=== PATIENT | female | born 1995 | race Hispanic/Latino ===

== ENCOUNTER 2019-12-26 00:41 | Emergency (ER) | payer SELFPAY ==
[2019-12-26 00:45] VITALS: BP 115/61; PULSE 74; RESP 18; TEMP 36.4; O2SAT 100
[2019-12-26 02:04] LABS: Alanine Aminotransferase 9 U/L (4-35); Albumin Level 4.3 g/dL (3.5-5.1); Alkaline Phosphatase 59 U/L (38-126); Aspartate Amino Transferase 20 U/L (14-36); Bilirubin,Total 0.3 mg/dL (0.2-1.3); Blood Urea Nitrogen 12 mg/dL (7-17); Calcium 9.1 mg/dL (8.4-10.2); Carbon Dioxide 23 mmol/L (22-30); Chloride 103 mmol/L (98-107); Estimated CRCL calculation 89 ml/min; Estimated Glomerular Filt Rate > 60; Glucose 97 mg/dL (65-105); Lipase 83 U/L (23-300); Potassium 3.8 mmol/L (3.4-5.0); Sodium 139 mmol/L (137-145)
[2019-12-26 02:07] LABS: Basophils Percent Auto 0.5 % (0.2-1.2); Eosinophils Absolute Auto 0.1 K/mm3 (0-0.3); Eosinophils Percent Auto 1.4 % (0-4.4); Hematocrit 31.9 % (37.0-47.0); Immature Granulocyte Absolute 0.01 K/mm3 (0.00-0.031); Immature Granulocyte Percent A 0.1 % (0-0.5); Lymphocytes Absolute Auto 3.82 K/mm3 (0.9-3.2); Lymphocytes Percent Auto 47.9 % (18.3-44.2); Mean Corpuscular HGB Conc 31.3 g/dl (32-36); Mean Corpuscular Volume 83.1 fl (80-100); Mean Platelet Volume 9.8 fl (7.4-10.4); Monocytes Absolute Auto 0.7 K/mm3 (0.1-0.6); Monocytes Percent Auto 8.1 % (2.6-8.5); Neutrophils Absolute Auto 3.4 K/mm3 (1.3-6.7); Platelet Count Result 319 k/mm3 (150-375); Red Blood Count 3.84 M/mm3 (4.2-5.4); Red Cell Distribution Width 14.2 % (11.5-14.5)
[2019-12-26 02:12] LABS: Add Urine Microscopic? YES; Appearance Urine Clear (Clear); Bilirubin Urine Negative (Negative); Blood Urine Negative (Negative); Color Urine Straw (Yellow); Glucose Urine UA Negative (Negative); Ketones Urine Negative (Negative); Leukocyte Esterase Ur 2+ LEU/UL (Negative); Mucus Urine Rare /lpf; Nitrate Urine Negative (Negative); Protein Urine Negative (Negative); RBC Urine 0-2 /hpf (0-2); Squamous Epithelial Cell Urine Moderate /hpf (Few); Urobilinogen Urine Negative mg/dL (<2.0)
--- NOTE | 2019-12-26 02:17 | ED.ABDPAIN ---
HPI - Abdominal Pain General Chief Complaint: Abdominal Pain Stated Complaint: SHARP RT ABD PAINS, NAUSEATED Time Seen by Provider: 12/26/19 01:50 Source: patient and RN notes reviewed Mode of arrival: ambulatory Limitations: no limitations History of Present Illness HPI narrative: Pt is a 24 y/o female who presents to the ED with c/o severe rt sided ABD pain starting yesterday. She currently rates her pain at 9/10. Pt states that she has tried taking Tylenol for her pain, but denies having any relief from the medication. She reports nausea accompanying her pain, but denies any vomiting, diarrhea, fever, dysuria, or hematuria. MD elicited complaint: abdominal pain Onset (ago): day(s) (1) Location: other (rt side of ABD) Pain scale (0-10): 9 Associated symptoms: nausea Treatments prior to arrival: other (Tylenol) Related Data Allergies Allergy/AdvReac Type Severity Reaction Status Date / Time morphine Allergy Unknown Difficulty Verified 12/26/19 00:43 Breathing Review of Systems Review of Systems: All systems reviewed & are unremarkable except as noted in HPI and below Constitutional: Constitutional: Denies fever(s) Gastrointestinal: Gastrointestinal: Reports abdominal pain (rt sided ABD pain), Denies diarrhea, Reports nausea and Denies vomiting Genitourinary: Genitourinary: Denies hematuria and Denies dysuria [facility] Past Medical History Medical History Patellar tendonitis Surgical History Surgical History No significant past surgical history Social History Social History (Updated 12/26/19 @ 02:23 by Jason Campos) Smoking status: Never smoker Gender identity (if verbalized by the patient): Female Exam Const: General: cooperative, healthy appearing, comfortable, no acute distress, well developed, alert and awake; No confusion Orientation/consciousness: oriented to person, oriented to place, oriented to time, patient oriented x3 and No confusion Limitations: no limitations HENMT: Head: normal to inspection, normocephalic and atraumatic Resp: Effort & Inspection: normal respiratory effort, able to speak in complete sentences, no respiratory distress and not tachypneic Auscultation: clear to auscultation bilaterally, no crackles, no rales, no rhonchi and no wheezes Cardio: Rate: regular rate Rhythm: regular rhythm GI: Inspection: normal to inspection GI Palp: Yes Soft to palpation, Yes Tenderness to palpation present (GI) (RUQ tenderness), No Guarding due to palpation present (GI) and No Rebound tenderness present Auscultation: normal bowel sounds : General: Yes no CVA tenderness Skin: General skin exam: normal color, no rashes or lesions noted, elasticity normal and turgor normal Neuro: General: oriented to person, oriented to place, oriented to time, patient oriented x3, tone normal, moves all extremities, Normal light touch and pain sensation, no meningeal signs, no focal motor deficits, CN's II-XI intact bilaterally and No confusion Cranial nerves: Yes Equal, round and reactive pupils present Speech: No Abnormal speech present Sensory Exam: No Sensory deficit (Neuro) Extrem: General: normal to inspection, full ROM and capillary refill normal Psych: Appearance: grossly normal and well kempt Mental Status: mental status grossly normal Speech and movement: Normal speech and movement present Affect: normal affect Attitude: cooperative Thought process: Normal thought process present Thought content: Yes Normal thought content present Insight: Good insight present (Psych) Judgement: Good judgement present (Psych) Course Vital Signs Vital signs: Vital Signs Temperature 36.4 C L 12/26/19 00:45 Pulse Rate 74 12/26/19 00:45 Respiratory Rate 18 12/26/19 00:45 Blood Pressure 115/61 12/26/19 00:45 Pulse Oximetry 100 12/26/19 00:45 Temperature 36.4 C L 12/26/19 00:45 Pulse R
[2019-12-26] MEDS: PROMETHAZINE HCL 25 MG/ML AMPUL 12.5 MG IV PUSH (02:48)
[2019-12-26 02:49] VITALS: BP 119/85; PULSE 84; RESP 19; TEMP 36.4; O2SAT 100
[2019-12-26] MEDS: KETOROLAC 30 MG/ML VIAL (*BKC) IV PUSH (02:49)
[2019-12-26 03:35] VITALS: BP 122/74; PULSE 84; RESP 18; TEMP 36.8; O2SAT 100
== END 2019-12-26 03:35 | disposition home or self-care (01) ==
PROVIDERS: Emergency Provider Emergency Medicine
DX: R10.11 Right upper quadrant pain (principal)
CPT/HCPCS: 36415; 80053; 81001; 81025; 83690; 85025; 96374; 96375; 99284; J1885; J2550

== ENCOUNTER 2020-09-22 18:12 | Emergency (ER) | payer MEDICAID, SELFPAY ==
--- NOTE | ~2020-09-22 | US_ITS ---
EXAMINATION: US OB <=14 wk fetus w TV DATE: 09/22/2020 19:33 INDICATION: Vaginal bleeding during first trimester . TECHNIQUE: Real-time pelvic ultrasound utilizing both a transvaginal and transabdominal probe was pe rformed. The interpreting radiologist was not present for the study. COMPARISON: None. FINDINGS: The uterus measures 8.8 x 4.8 x 7.0 cm. There is an intrauterine gestational sac. A yolk sac and fet al pole are identified. The crown rump length measures 4 mm, which correlates with an estimated gesta tional age of 6 weeks and 1 days. heart motion is identified measuring 121 beats per minute (bp m) by M-mode Doppler. The right ovary measures 2.9 x 1.2 x 1.2 cm. The left ovary measures 2.7 x 3.7 x 2.1 cm. 2.5 cm isoec hoic likely corpus luteum cyst in the left ovary. Vascular flow is identified in both ovaries on colo r Doppler. There is no free fluid in the pelvis. IMPRESSION: 1. Single living fetus with heart rate of 121 bpm. 2. Gestational age by ultrasound of 6 weeks 1 day(s) +/- 4 day(s) with ultrasound estimated date of delivery (SYLVIE) of 05/17/2021. Reviewed, dictated and finalized at location . HEAD INSPECTOR IMPRESSION: 1. Single living fetus with heart rate of 121 bpm. 2. Gestational age by ultrasound of 6 weeks 1 day(s) +/- 4 day(s) with ultraso und estimated date of delivery (SYLVIE) of 05/17/2021.
[2020-09-22 18:28] VITALS: BP 116/63; PULSE 78; RESP 15; TEMP 36.6; O2SAT 100
[2020-09-22 18:49] LABS: Basophils Absolute Auto 0.1 K/mm3 (0.0-0.1); Basophils Percent Auto 0.6 % (0.2-1.2); Eosinophils Absolute Auto 0.1 K/mm3 (0-0.3); Eosinophils Percent Auto 1.1 % (0-4.4); Hematocrit 34.9 % (37.0-47.0); Hemoglobin 11.8 g/dL (12.0-15.0); Immature Granulocyte Absolute 0.01 K/mm3 (0.00-0.031); Immature Granulocyte Percent A 0.1 % (0-0.5); Lymphocytes Absolute Auto 3.14 K/mm3 (0.9-3.2); Lymphocytes Percent Auto 37.8 % (18.3-44.2); Mean Corpuscular HGB Conc 33.8 g/dl (32-36); Mean Corpuscular Hemoglobin 29.8 pg (26-34); Mean Corpuscular Volume 88.1 fl (80-100); Mean Platelet Volume 9.3 fl (7.4-10.4); Monocytes Absolute Auto 0.6 K/mm3 (0.1-0.6); Monocytes Percent Auto 7.3 % (2.6-8.5); Neutrophils Absolute Auto 4.4 K/mm3 (1.3-6.7); Neutrophils Percent Auto 53.1 % (45.5-73.1); Platelet Count Result 307 k/mm3 (150-375); Red Blood Count 3.96 M/mm3 (4.2-5.4); Red Cell Distribution Width 13.2 % (11.5-14.5); White Blood Count 8.3 K/mm3 (4.5-10.0)
[2020-09-22 18:53] LABS: Add Urine Microscopic? YES; Appearance Urine Clear (Clear); Bilirubin Urine Negative (Negative); Blood Urine Negative (Negative); Color Urine Yellow (Yellow); Glucose Urine UA Negative (Negative); Ketones Urine Negative (Negative); Leukocyte Esterase Ur Trace LEU/UL (Negative); Mucus Urine Rare /lpf; Nitrate Urine Negative (Negative); Protein Urine 1+ mg/dL (Negative); RBC Urine 0-2 /hpf (0-2); Squamous Epithelial Cell Urine Few /hpf (Few); Urobilinogen Urine Negative mg/dL (<2.0)
--- NOTE | 2020-09-22 19:57 | ED.ABDPAIN ---
HPI - Abdominal Pain General Chief Complaint: Abdominal Pain Stated Complaint: abd pain Time Seen by Provider: 09/22/20 19:57 History of Present Illness HPI narrative: 25 yo female at about 6 weeks gestation present for vaginal bleeding and discharge. She reports that yesterday she had some light spotting. Today she developed what she described as some strange discharge and lower abdominal cramping. No nausea, vomiting diarrhea, dysuria. Related Data Home Medications Medication Instructions Recorded Confirmed No Home Medications 09/22/20 09/22/20 Allergies Allergy/AdvReac Type Severity Reaction Status Date / Time morphine Allergy Unknown Difficulty Verified 12/26/19 00:43 Breathing Review of Systems Review of Systems: All systems reviewed & are unremarkable except as noted in HPI and below Constitutional: Constitutional: Denies chills and Denies fever(s) Cardiovascular: Cardiovascular: Denies chest pain Respiratory: Respiratory: Denies dyspnea Gastrointestinal: Gastrointestinal: Reports abdominal pain, Denies constipation, Denies diarrhea, Denies nausea and Denies vomiting Genitourinary: Genitourinary: Reports abnormal vaginal bleeding, Denies hematuria, Denies dysuria and Reports vaginal discharge Neurologic: Denies dizziness and Denies weakness [facility] Past Medical History Medical History Patellar tendonitis Surgical History Surgical History No significant past surgical history Social History Social History Smoking status: Never smoker Gender identity (if verbalized by the patient): Female Exam Const: General: healthy appearing, no acute distress and alert Orientation/consciousness: patient oriented x3 HENMT: Head: normal to inspection Neck: Neck: normal visual inspection and no lymphadenopathy Chest: Chest palpation & inspection: no tenderness Resp: Effort & Inspection: normal respiratory effort Auscultation: clear to auscultation bilaterally, no rales, no rhonchi and no wheezes Cardio: Jugular venous distension: no JVD Rate: regular rate Rhythm: regular rhythm Heart sounds: no murmurs GI: Inspection: non-distended GI Palp: Yes Soft to palpation and Yes Tenderness to palpation present (GI) (minimal lower abdominal tenderness) : Speculum Exam - Vagina: abnormal vaginal discharge corado and No vaginal bleeding Speculum Exam - Cervix: normal appearance of the cervix Bimanual exam- vagina & uterus: no cervical motion tenderness Skin: General skin exam: normal color Neuro: General: patient oriented x3 and moves all extremities Speech: normal speech Gait exam (Neuro): Normal gait present Extrem: General: no edema Psych: Appearance: well kempt Affect: normal affect Course Vital Signs Vital signs: Vital Signs Temperature 36.6 C 09/22/20 18:28 Pulse Rate 78 09/22/20 18:28 Respiratory Rate 15 09/22/20 18:28 Blood Pressure 116/63 09/22/20 18:28 Pulse Oximetry 100 09/22/20 18:28 Temperature 36.6 C 09/22/20 18:28 Pulse Rate 78 09/22/20 18:28 Respiratory Rate 15 09/22/20 18:28 Blood Pressure 116/63 09/22/20 18:28 Pulse Oximetry 100 09/22/20 18:28 MDM - Abdominal Pain MDM Narrative Medical decision making narrative: Vaginal discharge concerning for infection. Will treat empirically and have OB follow-up on results. Medical Records Attestation: I reviewed the patient's medical records. Lab Data Attestation: I reviewed the patient's lab results. Result diagrams: 09/22/20 18:37 Labs: Lab Results 09/22/20 09/22/20 09/22/20 Range/Units 18:37 18:37 18:37 WBC 8.3 (4.5-10.0) K/mm3 RBC 3.96 L (4.2-5.4) M/mm3 Hgb 11.8 L (12.0-15.0) g/dL Hct 34.9 L (37.0-47.0) % MCV 88.1 (80-100) fl MCH 29.8 (26-34) pg MCHC 3
[2020-09-22] MEDS: metroNIDAZOLE 250 MG TABLET 2000 MG PO (20:43)
[2020-09-22] MEDS: cefTRIAXone 250 MG VIAL IM (20:45)
[2020-09-22] MEDS: AZITHROMYCIN 250 MG TABLET 1000 MG PO (20:45)
[2020-09-22 20:55] VITALS: BP 119/66; PULSE 90; RESP 19; O2SAT 99
== END 2020-09-22 20:55 | disposition home or self-care (01) ==
PROVIDERS: Emergency Provider Emergency Medicine
DX: O20.9 Hemorrhage in early pregnancy, unspecified (principal); Z3A.01 Less than 8 weeks gestation of pregnancy
CPT/HCPCS: 36415; 76801; 76817; 81001; 84702; 85025; 85461; 87070; 87147; 87491; 87591; 87808; 96372; 99284; A9270; J0696

== ENCOUNTER → 2020-10-10 10:21 | Outpatient (CLI) | payer MEDICAID, SELFPAY ==
--- NOTE | ~2020-10-10 | US_ITS ---
EXAMINATION: US OB <= 14 weeks fetus DATE: 10/10/2020 11:37 INDICATION: Gestational dating TECHNIQUE: Real-time transabdominal and transvaginal obstetric ultrasound. FINDINGS: No prior studies for comparison. The uterus measures 11.9 x 6.4 x 7.2 cm. There is an intrauterine gestational sac, with pole id entified. No evidence The crown rump length measures 1.92 cm. The ovaries are within normal limits. R ight ovary measures 2.7 x 1.7 x 1.9 cm. Left ovary measures 4 x 2.2 x 2.1 cm. IMPRESSION: 1. SL IUP with an EGA of 8 weeks, 5 days (EDC by initial ultrasound of 05/17/2021). Appropriate interv al growth. Reviewed, dictated and finalized at location B. Y MEDIA OPERATOR IMPRESSION: 1. SL IUP with an EGA of 8 weeks, 5 days (EDC by initial ultrasound of ). Appropriate interval growth.
== END ==
PROVIDERS: Visit Provider Physician Assistant
DX: Z34.01 Encounter for supervision of normal first pregnancy, first trimester (principal); Z3A.01 Less than 8 weeks gestation of pregnancy
CPT/HCPCS: 76801

== ENCOUNTER 2020-12-29 08:43 | Outpatient (CLI) | payer OTHER, SELFPAY ==
--- NOTE | ~2020-12-29 | US_ITS ---
EXAMINATION: US OB /maternal detail DATE: 12/29/2020 09:35 INDICATION: Routine care. TECHNIQUE: Real-time ultrasound of the pelvis was performed. COMPARISON: Ultrasound 10/10/20, 09/22/2020 FINDINGS: There is a single living fetus in breech presentation. The placenta is fundal, 10.8 cm from the cerv ix. heart rate is 141 beats per minute (bpm). The amniotic fluid index is 9.7 cm, which is norm al. The following biometric data were obtained: Biparietal diameter (BPD): 4.6 cm; head circumference (HC): 17.6 cm; abdominal circumference (AC): 15 .1 cm; femur length (FL): 3.3 cm. These measurements are concordant. Estimated weight is 342 g +/- 51 g, which correlates with 51st percentile when 05/17/21 is used as estimated date of delivery. As single measurements, these parameters are each equal to the following estimated gestational ages: BPD: 20 weeks 0 days. HC: 20 weeks 1 days. AC: 20 weeks 2 days. FL: 20 weeks 1 days. estimated gestational age based solely on measurements from this exam is 20 weeks 1 days +/- 1 weeks 3 days. The cerebral ventricles, cerebellum, cisterna magna, nuchal fold, nose/lip, and visualized portions o f the spine are normal. The heart is normal. The diaphragm, stomach, kidneys, and bladder are normal. There are two umbilical arteries to yield a 3-vessel cord. The cord insertion is normal. IMPRESSION: 1. Single living fetus in breech presentation. 2. Estimated weight is 342 g +/- 51 g, which correlates with 51st percentile when 05/17/21 is u sed as estimated date of delivery. This date was set by ultrasound on 09/22/2020. 3. Normal anatomic survey. Reviewed, dictated and finalized at location A. NING SERVICES COORDINATOR IMPRESSION: 1. Single living fetus in breech presentation. 2. Estimated weight is 342 g +/- 51 g, which correlates with 51st percen tile when 05/17/21 is used as estimated date of delivery. This date was set by alma rosa mg on 09/22/2020. 3. Normal anatomic survey.
== END 2020-12-29 08:44 | disposition home or self-care (01) ==
PROVIDERS: PCP Physician Assistant; Visit Provider Physician Assistant
DX: Z34.92 Encounter for supervision of normal pregnancy, unspecified, second trimester (principal); Z3A.20 20 weeks gestation of pregnancy
CPT/HCPCS: 76805

== ENCOUNTER 2021-01-27 13:31 | Emergency (ER) | payer OTHER, SELFPAY ==
--- NOTE | 2021-01-27 13:44 | ED.URI ---
HPI - URI/Sore Throat General Chief Complaint: Upper Respiratory Infection Stated Complaint: Sore throat Time Seen by Provider: 01/27/21 13:44 Source: patient and RN notes reviewed History of Present Illness HPI Narrative: Patient is a 25-year-old female who presents the urgent care with complaints of sore throat and nasal congestion. Patient states that it started yesterday and she is 6 months . Patient has taken Tylenol for her symptoms. Patient reports of ongoing nausea since , nothing new or worsened. Denies of any vomiting, abdominal pain, fever, chills, nausea. Denies of any known exposure to Covid or strep. No other acute complaints. No acute distress noted. Patient aware of the plan of care. Some parts of this dictation were generated by voice recognition software and may contain typographical and/or grammatical inaccuracies. Related Data Home Medications Medication Instructions Recorded Confirmed vit no.[id number] 1 tablet PO DAILY 01/27/21 01/27/21 [Classic ] Allergies Allergy/AdvReac Type Severity Reaction Status Date / Time morphine Allergy Unknown Difficulty Verified 01/27/21 13:52 Breathing Review of Systems Review of Systems: Narrative: CONSTITUTIONAL: Denies fever, chills, or sweats. EYES: Denies visual changes, redness, or discharge. ENT: Reports of sore throat and nasal congestion CARDIOVASCULAR: Denies chest pain, palpitations, or edema. RESPIRATORY: Denies cough or dyspnea. GASTROINTESTINAL: Denies abdominal pain, nausea, vomiting, or diarrhea. GENITOURINARY: Denies dysuria or hematuria. SKIN: Denies rash or itching. MUSCULOSKELETAL: Denies back pain, joint pain, or myalgia. NEUROLOGIC: Denies headache, numbness, or weakness. All other systems reviewed are negative, except as documented in HPI. [facility] Past Medical History Medical History (Updated 01/27/21 @ 14:10 by MORGAN Aden) Patellar tendonitis Surgical History Surgical History No significant past surgical history Social History Social History Smoking status: Never smoker Gender identity (if verbalized by the patient): Female Comments At the time of my signature, I reviewed and agree with the nursing past medical, surgical, social, and family history. There is no relevant family history pertinent to the patient complaint. Exam Narrative: Exam Narrative: GENERAL: This is a well-nourished, well-developed patient, in no apparent distress. HEAD: normocephalic, atraumatic. EYES: PERRL. Sclera clear/white. Vision is grossly intact. EARS: External ears normal, auditory canals clear and without drainage, TMs normal without perforation. Hearing grossly intact. NOSE: External nose normal with no obvious nasal discharge, nares without redness, clear rhinorrhea. THROAT: Mucous membranes moist, posterior pharynx clear. Mild postnasal drainage NECK: Neck supple, non-tender without lymphadenopathy CARDIOVASCULAR: Regular rate and rhythm without murmurs, gallops, or rubs. RESPIRATORY: Clear to auscultation. Breath sounds equal bilaterally. No wheezes, rales, or rhonchi. SKIN: warm, intact with no suspicious lesions or rash, good texture and turgor. NEURO: awake, alert, and oriented to person, place and time. There were no obvious focal neurologic abnormalities. EXTREMITIES: No clubbing, cyanosis, or edema. Course Vital Signs Vital signs: Vital Signs Temperature 97.2 F L 01/27/21 13:48 Pulse Rate 66 01/27/21 13:48 Respiratory Rate 16 01/27/21 13:48 Blood Pressure 105/66 01/27/21 13:48 Pulse Oximetry 99 01/27/21 13:48 Temperature 97.2 F L 01/27/21 13:48 Pulse Rate 66 01/27/21 13:48 Respiratory Rate 16 01/27/21 13:48 Blood Pressure 105/66 01/27/21 13:48 Pulse Oximetry 99 01/27/21 13:48 Reviewed MDM - URI/Sore Throat MDM Narrat
[2021-01-27 13:48] VITALS: BP 105/66; PULSE 66; RESP 16; TEMP 36.2; O2SAT 99
== END 2021-01-27 14:13 | disposition home or self-care (01) ==
PROVIDERS: Emergency Provider Nurse Practitioner Family
DX: O99.512 Diseases of the respiratory system complicating pregnancy, second trimester (principal); Z3A.00 Weeks of gestation of pregnancy not specified; J02.9 Acute pharyngitis, unspecified
CPT/HCPCS: 87081; 87880; 99213; G0463

== ENCOUNTER 2021-01-28 15:01 | Emergency (ER) | payer OTHER, SELFPAY ==
[2021-01-28 15:03] VITALS: BP 112/62; PULSE 84; RESP 16; TEMP 36.1; O2SAT 100
--- NOTE | 2021-01-28 16:11 | ED.GENADULT ---
HPI - General Adult General Chief complaint: Upper Respiratory Infection Stated complaint: ST Time Seen by Provider: 01/28/21 15:14 Source: RN notes reviewed History of Present Illness HPI narrative: Patient presents to emergency department from home for a sore throat. Patient states that symptoms began 3 days ago. She states a sore throat that is worse with swallowing as well as rhinorrhea she reports a fever of 101 last night for which she took Tylenol but no fever since that time she denies any fevers today denies any chills chest pain cough shortness of breath abdominal pain nausea vomiting diarrhea or any other symptoms. The patient is currently 6 months Related Data Home Medications Medication Instructions Recorded Confirmed vit no.[id number] 1 tablet PO DAILY 01/27/21 01/27/21 [Classic ] Allergies Allergy/AdvReac Type Severity Reaction Status Date / Time morphine Allergy Unknown Difficulty Verified 01/27/21 13:52 Breathing Review of Systems Review of Systems: Narrative: Gen.: Denies fevers or chills Eyes: Denies eye pain or visual change ENT: See HPI Respiratory: Denies shortness of breath or cough CV: Denies chest pain GI: Denies abdominal pain nausea, emesis or diarrhea reports Musculoskeletal: Denies back pain or muscle pain Neuro: Denies numbness, tingling, weakness or focal weakness Skin: Denies rash Except as documented, all other systems reviewed and negative [facility] Past Medical History Medical History (Updated 01/28/21 @ 16:14 by Afshin Corcoran DO) Patellar tendonitis Surgical History Surgical History No significant past surgical history Social History Social History Smoking status: Never smoker Gender identity (if verbalized by the patient): Female Exam Narrative: Exam Narrative: APPEARANCE: No acute distress, nontoxic, resting in bed EYES: EOMI HEENT: Normocephalic, atraumatic, TMs clear bilaterally bilateral turbinates boggy airway patent mild erythema no exudate of posterior pharynx and bilateral tonsils uvula midline no trismus, tolerating own secretions RESPIRATORY: No respiratory distress Clear to auscultation bilaterally with no rhonchi wheezing or rales. CARDIOVASCULAR: Regular rate and rhythm without murmurs rubs or gallops. ABDOMINAL: Gravid uterus palpated nontender to palpation MUSCULOSKELETAl: Moves all extremities. No clubbing, cyanosis or edema. NEURO: Awake and alert. Following commands, speech normal, no focal deficits SKIN:: Warm, dry. No rashes lesions or abrasions PSYCHIATRIC: Normal affect/mood, Course Course Emergency Course: Patient with a rapid strep to the ED that was negative she did have a rapid Covid test done urgent care yesterday but that was only her secondary symptoms at this time I will obtain a PCR Covid test with concerns of possible Covid patient is otherwise stable no fevers today differential is Covid versus other viral infection no need for chest x-ray as patient has no cough or shortness of breath Discussed with patient results of workup and diagnosis. Discussed need for follow-up with primary care, proper use of medication, and reasons to return to the emergency department. Patient understands and agrees to current treatment plan Vital Signs Vital signs: Vital Signs Temperature 97 F L 01/28/21 15:03 Pulse Rate 84 01/28/21 15:03 Respiratory Rate 16 01/28/21 15:03 Blood Pressure 112/62 01/28/21 15:03 Pulse Oximetry 100 01/28/21 15:03 Temperature 97 F L 01/28/21 15:03 Pulse Rate 84 01/28/21 15:03 Respiratory Rate 16 01/28/21 15:03 Blood Pressure 112/62 01/28/21 15:03 Pulse Oximetry 100 01/28/21 15:03 Medical Decision Making Vital Signs Vital Signs: Vital Signs Temperature 97 F L 01/28/21 15:03 Pulse Rate 84 01/28/21 15:03 Respiratory
[2021-01-28 23:58] LABS: SARS-CoV-2 RNA PCR Negative
== END 2021-01-28 16:35 | disposition home or self-care (01) ==
PROVIDERS: Emergency Provider Emergency Medicine
DX: O99.512 Diseases of the respiratory system complicating pregnancy, second trimester (principal); Z20.822 Contact with and (suspected) exposure to COVID-19; J06.9 Acute upper respiratory infection, unspecified; Z3A.00 Weeks of gestation of pregnancy not specified
CPT/HCPCS: 87081; 87880; 99283; C9803; U0003; U0005

== ENCOUNTER 2021-03-22 23:18 | Observation (INO) | payer OTHER, SELFPAY ==
[2021-03-22 23:46] VITALS: BP 120/78; PULSE 69
[2021-03-23 00:05] LABS: Add Urine Microscopic? YES; Appearance Urine Cloudy (Clear); Bacteria Urine Trace /hpf; Bilirubin Urine Negative (Negative); Blood Urine Negative (Negative); Color Urine Yellow (Yellow); Glucose Urine UA Negative (Negative); Ketones Urine Negative (Negative); Leukocyte Esterase Ur 1+ LEU/UL (Negative); Mucus Urine Rare /lpf; Nitrate Urine Negative (Negative); Protein Urine Negative (Negative); Squamous Epithelial Cell Urine Many /hpf (Few); Urobilinogen Urine Negative mg/dL (<2.0)
[2021-03-23 00:09] VITALS: BMI 22.5
--- NOTE | 2021-03-23 00:10 | OBADM ---
This patient, Tracey Cifuentes, admitted to the OB room OB Post 117 for observation. Patient/family oriented to hospital policies and general routines including ID bracelet, bed and alarms, visiting hours, pain management, procedures, bathroom and other care routines, personal items, smoking policy, room service/diet, and visiting hours. Patient/Family are encouraged to report perceived risks to care and to ask questions if they do not understand what they are told or what they should do.
--- NOTE | 2021-03-25 18:10 | PM.OBTRLD ---
OB - Triage/Final Diagnosis Visit Information Comments/Additional reasons for admission: I have assessed the risk for this patient, Tracey Cifuentes, and determined that she would benefit from observation care. Evaluation Laboratory results: Laboratory Tests 03/22/21 23:52 Urine Color Yellow Urine Appearance Cloudy H Urine pH 7.0 Ur Specific [place] 1.010 Urine Protein Negative Urine Glucose (UA) Negative Urine Ketones Negative Ur Blood (Man) Negative Urine Nitrate Negative Urine Bilirubin Negative Urine Urobilinogen Negative Leukocyte Esterase Rfl 1+ H Urine RBC 3-5 H Urine WBC 4-6 H Ur Squamous Epith Cells Many H Urine Bacteria Trace Urine Mucus Rare Final Diagnosis (1) False labor: Code(s): O47.9 - False labor, unspecified Status: Acute
== END 2021-03-23 00:51 | disposition home or self-care (01) ==
PROVIDERS: Admitting Provider Obstetrics & Gynecology; PCP Physician Assistant; Visit Provider Obstetrics & Gynecology
DX: O47.03 False labor before 37 completed weeks of gestation, third trimester (principal); Z3A.32 32 weeks gestation of pregnancy
CPT/HCPCS: 81001; G0378; G0379

== ENCOUNTER 2021-04-23 12:16 | Outpatient (CLI) | payer OTHER, SELFPAY ==
[2021-04-23] VITALS (8 sets, daily range): BP systolic 124–135; BP diastolic 77–91; PULSE 68–76
--- NOTE | ~2021-04-23 | US_ITS ---
EXAMINATION: US OB BPP wo non-stress DATE: 04/23/2021 14:42 CDT INDICATION: Hypertension TECHNIQUE: Real-time transabdominal obstetric ultrasound. FINDINGS: Comparison ultrasound dated 12/29/2020 There is a single living fetus in vertex presentation. The placenta is posterior without placenta pr evia. cardiac activity and movement is noted with a heart rate of 157 beats per minute. Biophysical profile: breathin of 2 movement: 2 of 2 tone: 2 of 2 Amniotic flud pocket: 2 of 2 Total score: 8 of 8 IMPRESSION: 1. Single living intrauterine in vertex presentation. 2: Total biophysical profile score of 8/8. Reviewed, dictated and finalized at location A.
[2021-04-23 12:56] LABS: Basophils Percent Auto 0.5 % (0.2-1.2); Eosinophils Absolute Auto 0.1 K/mm3 (0-0.3); Eosinophils Percent Auto 0.6 % (0-4.4); Hematocrit 33.1 % (37.0-47.0); Hemoglobin 10.9 g/dL (12.0-15.0); Immature Granulocyte Absolute 0.04 K/mm3 (0.00-0.031); Immature Granulocyte Percent A 0.5 % (0-0.5); Lymphocytes Absolute Auto 2.87 K/mm3 (0.9-3.2); Lymphocytes Percent Auto 35.5 % (18.3-44.2); Mean Corpuscular HGB Conc 32.9 g/dl (32-36); Mean Corpuscular Hemoglobin 29.5 pg (26-34); Mean Corpuscular Volume 89.7 fl (80-100); Mean Platelet Volume 11.1 fl (7.4-10.4); Monocytes Absolute Auto 0.6 K/mm3 (0.1-0.6); Monocytes Percent Auto 7.4 % (2.6-8.5); Neutrophils Absolute Auto 4.5 K/mm3 (1.3-6.7); Neutrophils Percent Auto 55.5 % (45.5-73.1); Platelet Count Result 197 k/mm3 (150-375); Red Blood Count 3.69 M/mm3 (4.2-5.4); White Blood Count 8.1 K/mm3 (4.5-10.0)
[2021-04-23 13:06] LABS: Add Urine Microscopic? YES; Appearance Urine Cloudy (Clear); Bacteria Urine Trace /hpf; Bilirubin Urine Negative (Negative); Blood Urine Negative (Negative); Color Urine Yellow (Yellow); Glucose Urine UA Negative (Negative); Ketones Urine Negative (Negative); Leukocyte Esterase Ur Trace LEU/UL (NEGATIVE); Mucus Urine Few /lpf; Nitrate Urine Negative (Negative); Protein Urine 3+ mg/dL (Negative); RBC Urine 0-2 /hpf (0-2); Specific Grav Ur 1.025 (1.001-1.035); Squamous Epithelial Cell Urine Many /hpf (Few); Urobilinogen Urine Negative mg/dL (<2.0)
[2021-04-23 13:11] LABS: Alanine Aminotransferase 6 U/L (4-35); Albumin Level 3.1 g/dL (3.5-5.1); Alkaline Phosphatase 245 U/L (38-126); Anion Gap 7 mmol/L (8-16); Aspartate Amino Transferase 24 U/L (14-36); Bilirubin,Total 0.2 mg/dL (0.2-1.3); Blood Urea Nitrogen 10 mg/dL (7-17); Calcium 8.4 mg/dL (8.4-10.2); Carbon Dioxide 19 mmol/L (22-30); Chloride 110 mmol/L (98-107); Estimated Glomerular Filt Rate > 60; Glucose 86 mg/dL (65-105); Potassium 4.2 mmol/L (3.4-5.0); Sodium 136 mmol/L (137-145); Uric Acid 6.7 mg/dL (2.5-7.5)
[2021-04-23 13:50] LABS: Total Protein Urine Random 400 mg/dL; Ur Ttl Prot Creatinine Ratio 1.88 mg/mg (0-0.20)
== END 2021-04-23 14:50 | disposition home or self-care (01) ==
LOC: ANHOBOP 12:22 → ANHOBPP 12:23
PROVIDERS: PCP Physician Assistant; Visit Provider Obstetrics & Gynecology
DX: O13.9 Gestational [pregnancy-induced] hypertension without significant proteinuria, unspecified trimester (principal); Z3A.00 Weeks of gestation of pregnancy not specified
CPT/HCPCS: 36415; 59025; 76819; 80053; 81001; 82570; 84156; 84550; 85025; 87086; 99199

== ENCOUNTER 2021-04-24 13:41 | Outpatient (CLI) | payer OTHER, SELFPAY ==
[2021-04-24 13:54] VITALS: BMI 26.6
[2021-04-24 14:47] LABS: Collection Time Urine 24 HOURS
[2021-04-24 15:42] LABS: Creatinine Urine 65.7 mg/dL; Patient Weight 145 Lbs; Total Protein Urine Random 183 mg/dL
[2021-04-24 16:07] LABS: Creatinine Clearance Urine 88.2 ml/min (75-125); Total Protein Urine 24 Hr 2379 mg/24hr (28-141); Total Volume 24 Hour Urine 1300 ml
== END 2021-04-24 13:42 | disposition home or self-care (01) ==
LOC: ANHOBOP 13:47
PROVIDERS: PCP Physician Assistant; Referring Provider Obstetrics & Gynecology; Visit Provider Obstetrics & Gynecology
DX: Z01.818 Encounter for other preprocedural examination (principal)
CPT/HCPCS: 81050; 82575; 84156

== ENCOUNTER 2021-04-25 20:34 | Inpatient (IN) | payer OTHER, SELFPAY ==
[2021-04-25] VITALS (12 sets, daily range): BP systolic 147–171; BP diastolic 71–129; PULSE 58–70; TEMP 36.2; BMI 26.6
[2021-04-25] MEDS: ACETAMINOPHEN 500 MG TABLET 1000 MG PO (22:23)
[2021-04-25 22:25] LABS: Basophils Percent Auto 0.4 % (0.2-1.2); Eosinophils Percent Auto 0.3 % (0-4.4); Hematocrit 35.4 % (37.0-47.0); Hemoglobin 11.7 g/dL (12.0-15.0); Immature Granulocyte Absolute 0.04 K/mm3 (0.00-0.031); Immature Granulocyte Percent A 0.4 % (0-0.5); Lymphocytes Absolute Auto 3.08 K/mm3 (0.9-3.2); Mean Corpuscular HGB Conc 33.1 g/dl (32-36); Mean Corpuscular Hemoglobin 29.4 pg (26-34); Mean Corpuscular Volume 88.9 fl (80-100); Monocytes Absolute Auto 0.6 K/mm3 (0.1-0.6); Monocytes Percent Auto 6.5 % (2.6-8.5); Neutrophils Absolute Auto 6.1 K/mm3 (1.3-6.7); Neutrophils Percent Auto 61.4 % (45.5-73.1); Platelet Count Result 186 k/mm3 (150-375); Red Blood Count 3.98 M/mm3 (4.2-5.4); Red Cell Distribution Width 14.2 % (11.5-14.5); White Blood Count 9.9 K/mm3 (4.5-10.0)
[2021-04-25 22:35] LABS: Alanine Aminotransferase 89 U/L (4-35); Albumin Level 3.4 g/dL (3.5-5.1); Alkaline Phosphatase 268 U/L (38-126); Anion Gap 6 mmol/L (8-16); Aspartate Amino Transferase 169 U/L (14-36); Bilirubin,Total 0.4 mg/dL (0.2-1.3); Blood Urea Nitrogen 12 mg/dL (7-17); Calcium 9.3 mg/dL (8.4-10.2); Carbon Dioxide 22 mmol/L (22-30); Chloride 107 mmol/L (98-107); Estimated Glomerular Filt Rate > 60; Glucose 81 mg/dL (65-105); Potassium 4.1 mmol/L (3.4-5.0); Sodium 135 mmol/L (137-145); Uric Acid 6.6 mg/dL (2.5-7.5)
[2021-04-25 23:17] LABS: Creatinine Urine 89.9 mg/dL
[2021-04-25 23:19] LABS: Add Urine Microscopic? YES; Appearance Urine Cloudy (Clear); Bacteria Urine Trace /hpf; Bilirubin Urine Negative (Negative); Blood Urine Negative (Negative); Color Urine Yellow (Yellow); Glucose Urine UA Negative (Negative); Ketones Urine Negative (Negative); Leukocyte Esterase Ur Trace LEU/UL (NEGATIVE); Mucus Urine Rare /lpf; Nitrate Urine Negative (Negative); Protein Urine 3+ mg/dL (Negative); RBC Urine 0-2 /hpf (0-2); Specific Grav Ur 1.026 (1.001-1.035); Squamous Epithelial Cell Urine Many /hpf (Few); Urobilinogen Urine Negative mg/dL (<2.0)
--- NOTE | 2021-04-25 23:27 | WPDANESEPPF ---
Anes - Initial Pre Proc Eval Procedure: Operation Date: 04/25/21 23:45 Proposed Procedures p Section - Mirza Alberto MD Date/Time: 04/25/21 23:27 Surgeon: Dolly Pre Op Diagnosis: abd pressure Patient Data Age: 25 Gender: F Height: Weight: Last Vital Signs Pulse 59 L 04/25/21 23:16 BP 149/77 H 04/25/21 23:16 Allergies Allergy/AdvReac Type Severity Reaction Status Date / Time morphine Allergy Unknown Difficulty Verified 01/27/21 13:52 Breathing Home Medications Medication Instructions Recorded Confirmed Type Classic 1 tablet PO DAILY 01/27/21 03/23/21 History Laboratory Tests 04/25/21 04/25/21 04/25/21 22:19 22:19 22:56 WBC 9.9 K/mm3 K/mm3 (4.5-10.0) RBC 3.98 M/mm3 L M/mm3 (4.2-5.4) Hgb 11.7 g/dL L g/dL (12.0-15.0) Hct 35.4 % L % (37.0-47.0) MCV 88.9 fl fl (80-100) MCH 29.4 pg pg (26-34) MCHC 33.1 g/dl g/dl (32-36) RDW 14.2 % % (11.5-14.5) Plt Count 186 k/mm3 k/mm3 (150-375) MPV 11.0 fl H fl (7.4-10.4) Immature Gran % (Auto) 0.4 % % (0-0.5) Neut % (Auto) 61.4 % % (45.5-73.1) Lymph % (Auto) 31.0 % % (18.3-44.2) [place] % (Auto) 6.5 % % (2.6-8.5) Eos % (Auto) 0.3 % % (0-4.4) Baso % (Auto) 0.4 % % (0.2-1.2) Lymph # (Auto) 3.08 K/mm3 K/mm3 (0.9-3.2) [place] # (Auto) 0.6 K/mm3 K/mm3 (0.1-0.6) Eos # (Auto) 0.0 K/mm3 K/mm3 (0-0.3) Baso # (Auto) 0.0 K/mm3 K/mm3 (0.0-0.1) Abs Immat Gran (auto) 0.04 K/mm3 H K/mm3 (0.00-0.031) Absolute Neuts (auto) 6.1 K/mm3 K/mm3 (1.3-6.7) Absolute Nucleated RBC 0.0 K/mm3 K/mm3 (0.0-0.012) Nucleated RBC % 0.0 % % (0.0-0.2) Sodium 135 mmol/L L mmol/L (137-145) Potassium 4.1 mmol/L mmol/L (3.4-5.0) Chloride 107 mmol/L mmol/L (98-107) Carbon Dioxide 22 mmol/L mmol/L (22-30) Anion Gap 6 mmol/L L mmol/L (8-16) BUN 12 mg/dL mg/dL (7-17) Creatinine 0.60 mg/dL L mg/dL (0.7-1.0) Estim Creat Clear Calc Not Reportable Estimated GFR > 60 (59 - ) Glucose 81 mg/dL mg/dL (65-105) Uric Acid 6.6 mg/dL mg/dL (2.5-7.5) Calcium 9.3 mg/dL mg/dL (8.4-10.2) Total Bilirubin 0.4 mg/dL mg/dL (0.2-1.3) AST 169 U/L H U/L (14-36) ALT 89 U/L H U/L (4-35) Alkaline Phosphatase 268 U/L H U/L (38-126) Total Protein 7.0 g/dL g/dL (6.3-8.2) Albumin 3.4 g/dL L g/dL (3.5-5.1) Urine Color Yellow (Yellow) Urine Appearance Cloudy H (Clear) Urine pH 7.0 (5.0-9.0) Ur Specific [place] 1.026 (1.001-1.035) Urine Protein 3+ mg/dL H mg/dL (Negative) Urine Glucose (UA) Negative mg/dL mg/dL (Negative) Urine Ketones Negative mg/dL mg/dL (Negative) Ur Blood (Man) Negative (Negative) Urine Nitrate Negative (Negative) Urine Bilirubin Negative (Negative) Urine Urobilinogen Negative mg/dL mg/dL (<2.0) Ur Leukocyte Esterase Trace PALLAVI/UL H PALLAVI/UL (NEGATIVE) Urine RBC 0-2 /hpf /hpf (0-2) Urine WBC 7-9 /hpf H /hpf (0-3) Ur Squamous Epith Cells Many /hpf H /hpf (Few) Urine Bacteria Trace /hpf /hpf Urine Mucus Rare /lpf /lpf U Random Total Protein Urine Creatinine Protein/Creat Ratio 2 04/25/21 22:56 WBC RBC Hgb Hct MCV MCH MCHC RDW Plt Count MPV Immature Gran % (Auto) Neut % (Auto) Lymph % (Auto) [place] % (Auto) Eos % (Auto) Baso % (Auto) Lymph # (Auto)
[2021-04-25] MEDS: LACTATED RINGERS 1,000 ML 125 ML IV CONT (23:33)
[2021-04-25] MEDS: MAGNESIUM SULF 4 GM/WATER100ML 4 GM/100 ML BAG IVPB (23:34)
[2021-04-25 23:50] LABS: Total Protein Urine Random > 600 mg/dL
[2021-04-26] VITALS (83 sets, daily range): BP systolic 113–165; BP diastolic 26–112; PULSE 54–219; RESP 13–19; TEMP 36.1–36.8; O2SAT 96–100
[2021-04-26 00:08] LABS: INR 0.8
[2021-04-26 00:09] LABS: Partial Thromboplastin Time 27.6 SECONDS (22.3-36.8)
[2021-04-26] MEDS: ceFAZolin 2 GM/D5W 50 ML 2 GM/50 ML BAG IVPB (00:09)
--- NOTE | 2021-04-26 00:09 | PM.IMHP ---
H&P: HPI History of Present Illness Date/Time: 04/26/21 25-year-old 1 female at 37 weeks presents with right upper quadrant pain nausea and vomiting. Was doing well during this with care with Dr. moon manner no issues until seen earlier this week elevated blood pressure. Labs were obtained at that time which were centrally normal other than a 24hour protein which is markedly elevated today. Presented tonight due to the above right upper quadrant pain with the nausea vomiting. At the end as noted above care has been with Dr. Chamorro and essentially without complication Chief Complaint: Abdominal pain Review of Systems Review of Systems: All systems reviewed & are unremarkable except as noted in HPI and below ( nausea and vomiting as noted above. No other significant complaints) [facility] Past Medical History Medical History (Updated 04/26/21 @ 00:15 by Mirza Alberto MD) Patellar tendonitis Surgical History Surgical History No significant past surgical history Social History Social History Smoking status: Never smoker Gender identity (if verbalized by the patient): Female Meds Home Medications and Allergies Home Medications Medication Instructions Recorded Confirmed Type Classic 1 tablet PO DAILY 01/27/21 04/25/21 History Allergies Allergy/AdvReac Type Severity Reaction Status Date / Time morphine Allergy Unknown Difficulty Verified 01/27/21 13:52 Breathing Vital Signs Vital Signs - 24 hr 04/25/21 20:58 04/25/21 21:16 04/25/21 21:31 Pulse Rate 62 61 63 Blood Pressure 166/92 H 153/73 H 147/71 H 04/25/21 21:46 04/25/21 22:01 04/25/21 22:31 Pulse Rate 58 L 62 63 Blood Pressure 171/97 H 165/85 H 163/77 H 04/25/21 22:46 04/25/21 23:16 04/25/21 23:31 Pulse Rate 66 59 L 65 Blood Pressure 157/88 H 149/77 H 153/129 H 04/25/21 23:33 04/25/21 23:57 04/26/21 00:01 Pulse Rate 68 70 73 Blood Pressure 159/79 H 156/87 H 152/88 H Exam Const: General: cooperative and healthy appearing Resp: Effort & Inspection: normal respiratory effort Auscultation: clear to auscultation bilaterally Cardio: Rate: regular rate Rhythm: regular rhythm GI: Inspection: normal to inspection GI Palp: Yes abdominal tenderness ( right upper quadrant) Auscultation: normal bowel sounds : Bimanual exam- vagina & uterus: enlarged ( heart tone 140. Fundal height 35cm) H&P: Results Labs Labs: Short CBC 04/25/21 Range/Units 22:19 WBC 9.9 (4.5-10.0) K/mm3 Hgb 11.7 L (12.0-15.0) g/dL Hct 35.4 L (37.0-47.0) % Plt Count 186 (150-375) k/mm3 BMP 04/25/21 22:19 Sodium 135 L Potassium 4.1 Chloride 107 Carbon Dioxide 22 BUN 12 Creatinine 0.60 L Glucose 81 Calcium 9.3 Liver Function 04/25/21 Range/Units 22:19 Total Bilirubin 0.4 (0.2-1.3) mg/dL AST 169 H (14-36) U/L ALT 89 H (4-35) U/L Alkaline Phosphatase 268 H (38-126) U/L Albumin 3.4 L (3.5-5.1) g/dL Urine 04/25/21 Range/Units 22:56 Urine Color Yellow (Yellow) Urine Appearance Cloudy H (Clear) Urine pH 7.0 (5.0-9.0) Ur Specific [place] 1.026 (1.001-1.035) Urine Protein 3+ H (Negative) mg/dL Urine Glucose (UA) Negative (Negative) mg/dL Assessment and Plan Assessment and plan (1) 37 weeks gestation of : Code(s): Z3A.37 - 37 weeks gestation of Status: Acute (2) induced hypertension: Code(s): O13.9 - Gestational [-induced] hypertension without significant proteinuria, unspecified trimester Status: Acute (3) HELLP syndrome: Code(s): O14.20 - HELLP syndrome (HELLP), unspecified trimester Status: Acute Additional Plan 1 proceed with delivery. To noninducible cervix and her being remote from delivery
--- NOTE | 2021-04-26 00:16 | WPDHPUPDATE1 ---
History and Physical Update Update Date/Time: 04/26/21 00:16 History and Physical has been reviewed, including an updated exam of the patient. There are NO changes in the patient's condition. Risks, benefits, and alternatives have been discussed and questions answered. Patient agrees to proceed with procedure.
[2021-04-26 00:39] LABS: HIV 1/2 Ab P24 Ag Result Negative (Negative)
--- NOTE | 2021-04-26 00:51 | P.PCNOB_ITS ---
OB - Delivery Note Procedure Procedure: Procedures Operation Date: 04/25/21 23:45 <No data on this case meets the specified criteria> events: Induced HTN (With HELLP syndrome) Intrapartal events: None Induction method: none Route of delivery: Indication for instrumentation: other (Above diagnoses remote from delivery) Specimen: Yes Quantitative Blood Loss (ml): 325 Anesthesia type: Spinal Disposition: floor Narrative: Patient prepped in usual manner for this procedure. Pfannenstiel incision was made which was then carried down to the fascia. This was extended bilaterally the length of the skin incision and then superiorly and inferiorly dissected away from the rectus muscles. Peritoneum was readily entered bladder flap was developed. Uterus was scored and lower segment was dissected. Vertex was delivered section naso-oropharynx the rest of baby was delivered cord clamped cut and placenta was removed manually. Uterus was exteriorized cleared of membranes and clots and approximated using 0 Monocryl in a running interlocking manner with good approximation hemostasis noted. Uterus was turned to the abdomen all subfascial tissue was noted be hemostatic and the fascia was then approximated using 0 Vicryl suture from the left angle to the midline and the right angle midline in a running manner. Subcutaneous tissue was cauterized and approximated using a 0 plain suture. [place] were then used to approximate the skin edges. [place] Baby Weeks of gestation at delivery: 37 Infant gender: Female Weight (pounds): 5 Weight (ounces): 4 presentation: vertex Placenta delivery description: Manual Removal cord vessel description: 3 Vessels score one minute: 8 score five minutes: 9
--- NOTE | 2021-04-26 01:27 | OBADM ---
This patient, Tracey Cifuentes, admitted to the OB room Labor/Delivery/Recovery 120 for observation. Patient/family oriented to hospital policies and general routines including ID bracelet, bed and alarms, visiting hours, pain management, procedures, bathroom and other care routines, personal items, smoking policy, room service/diet, and visiting hours. Patient/Family are encouraged to report perceived risks to care and to ask questions if they do not understand what they are told or what they should do.
[2021-04-26] MEDS: MAGNESIUM SULF 20GM/WATER500ML 500 ML 50 MG IV CONT ×2 (01:50→12:03)
[2021-04-26] MEDS: OXYTOCIN 30 UNITS/NS 500 ML 30 UNITS/500 ML BAG 125 UNITS IV CONT (01:50)
--- NOTE | 2021-04-26 02:27 | LDADM ---
This patient, Tracey Cifuentes, was admitted to Labor/Delivery/Recovery 120 on 04/25/21 at 23:18. Plans for labor, pain management and were discussed with patient. Patient/family oriented to hospital policies and general routines including ID bracelet, bed and alarms, visiting hours, pain management, procedures, bathroom and other care routines, personal items, smoking policy, room service/diet and guest tray routines, security routines, and visiting hours. Patient/Family are encouraged to report perceived risks to care and to ask questions if they do not understand what they are told or what they should do. See OBIX for further documentation.
[2021-04-26] MEDS: ONDANSETRON INJ 4 MG/2 ML VIAL IV PUSH ×2 (03:30→19:54)
[2021-04-26] MEDS: diphenhydrAMINE HCl INJ 50 MG/ML VIAL 12.5 MG IV PUSH (04:21)
--- NOTE | 2021-04-26 04:47 | PC.NURSE ---
This patient, Tracey Cifuentes, was received from Labor and Delivery on 04/26/21 at 0358. Patient/family oriented to unit policies and routines
[2021-04-26 06:52] LABS: Alanine Aminotransferase 145 U/L (4-35); Albumin Level 2.9 g/dL (3.5-5.1); Alkaline Phosphatase 245 U/L (38-126); Anion Gap 9 mmol/L (8-16); Aspartate Amino Transferase 501 U/L (14-36); Bilirubin,Total 1.5 mg/dL (0.2-1.3); Blood Urea Nitrogen 13 mg/dL (7-17); Carbon Dioxide 22 mmol/L (22-30); Chloride 105 mmol/L (98-107); Estimated CRCL calculation 95 ml/min; Estimated Glomerular Filt Rate > 60; Glucose 104 mg/dL (65-105); Potassium 4.4 mmol/L (3.4-5.0); Sodium 136 mmol/L (137-145)
[2021-04-26] MEDS: MULTIVIT/MIN/PREN/FOL AC/IRON TABLET 1 TAB PO (08:53)
[2021-04-26] MEDS: DOCUSATE SODIUM 100 MG CAPSULE PO (08:53)
[2021-04-26] MEDS: POLYSACCHARIDE IRON COMPLEX 150 MG CAPSULE PO (08:53)
[2021-04-26] MEDS: LABETALOL HCL 100 MG TABLET 200 MG PO ×2 (08:53→19:54)
[2021-04-26] MEDS: SIMETHICONE 80 MG TAB.CHEW PO ×2 (09:00→15:55)
[2021-04-26] MEDS: HYDROcodone/acetaminophen (*CRX) 10-325 MG TABLET 1 TAB PO ×2 (09:00→15:56)
--- NOTE | 2021-04-26 10:53 | PM.OBPNVD ---
OB - PN: Subj Subjective Date/time seen: 04/26/21 10:53 No complaints this morning other than mild incisional pain. No right upper quadrant pain and no further nausea and vomiting. Has not been out of bed due to catheter and some dizziness and blurred vision from magnesium. OB - PN: Obj Data Labs CBC & Chem 7: 04/25/21 22:19 04/26/21 05:48 Labs: Laboratory Results - last 24 hr 04/25/21 04/25/21 04/25/21 22:19 22:19 22:19 WBC 9.9 RBC 3.98 L Hgb 11.7 L Hct 35.4 L MCV 88.9 MCH 29.4 MCHC 33.1 RDW 14.2 Plt Count 186 MPV 11.0 H Immature Gran % (Auto) 0.4 Neut % (Auto) 61.4 Lymph % (Auto) 31.0 [place] % (Auto) 6.5 Eos % (Auto) 0.3 Baso % (Auto) 0.4 Lymph # (Auto) 3.08 [place] # (Auto) 0.6 Eos # (Auto) 0.0 Baso # (Auto) 0.0 Abs Immat Gran (auto) 0.04 H Absolute Neuts (auto) 6.1 Absolute Nucleated RBC 0.0 Nucleated RBC % 0.0 PT INR APTT Sodium 135 L Potassium 4.1 Chloride 107 Carbon Dioxide 22 Anion Gap 6 L BUN 12 Creatinine 0.60 L Estim Creat Clear Calc Not Reportable Estimated GFR > 60 Glucose 81 Uric Acid 6.6 Calcium 9.3 Total Bilirubin 0.4 AST 169 H ALT 89 H Alkaline Phosphatase 268 H Total Protein 7.0 Albumin 3.4 L Urine Color Urine Appearance Urine pH Ur Specific [place] Urine Protein Urine Glucose (UA) Urine Ketones Ur Blood (Man) Urine Nitrate Urine Bilirubin Urine Urobilinogen Ur Leukocyte Esterase Urine RBC Urine WBC Ur Squamous Epith Cells Urine Bacteria Urine Mucus U Random Total Protein Urine Creatinine Protein/Creat Ratio 2 HIV 1&2 Ab/P24 Ag 4thGn Negative Blood Type Antibody Screen 04/25/21 04/25/21 04/25/21 22:56 22:56 23:31 WBC RBC Hgb Hct MCV MCH MCHC RDW Plt Count MPV Immature Gran % (Auto) Neut % (Auto) Lymph % (Auto) [place] % (Auto) Eos % (Auto) Baso % (Auto) Lymph # (Auto) [place] # (Auto) Eos # (Auto) Baso # (Auto) Abs Immat Gran (auto) Absolute Neuts (auto) Absolute Nucleated RBC Nucleated RBC % PT INR APTT Sodium Potassium Chloride Carbon Dioxide Anion Gap BUN Creatinine Estim Creat Clear Calc Estimated GFR Glucose Uric Acid Calcium Total Bilirubin AST ALT Alkaline Phosphatase Total Protein Albumin Urine Color Yellow Urine Appearance Cloudy H Urine pH 7.0 Ur Specific [place] 1.026 Urine Protein 3+ H Urine Glucose (UA) Negative Urine Ketones Negative Ur Blood (Man) Negative Urine Nitrate Negative Urine Bilirubin Negative Urine Urobilinogen Negative Ur Leukocyte Esterase Trace H Urine RBC 0-2 Urine WBC 7-9 H Ur Squamous Epith Cells Many H Urine Bacteria Trace Urine Mucus Rare U Random Total Protein > 600 Urine Creatinine 89.9 Protein/Creat Ratio 2 > 6.67 H HIV 1&2 Ab/P24 Ag 4thGn Blood Type O Positive Antibody Screen Negative 04/25/21 04/25/21 04/26/21 23:51 23:51 05:48 WBC RBC Hgb Hct MCV MCH MCHC RDW Plt Count MPV Immature Gran % (Auto) Neut % (Auto) Lymph % (Auto) [place] % (Auto) Eos % (Auto) Baso % (Auto) Lymph # (Auto) [place] # (Auto) Eos # (Auto) Baso # (Auto) Abs Immat Gran (auto) Absolute Neuts (auto) Absolute Nucleated RBC Nucleated RBC % PT 12.0 INR 0.8 APTT 27.6 Sodium 136 L Potassium 4.4 Chloride 105 Carbon Dioxide 22 Anion Gap 9 BUN 13 Creatinine 0.70 Estim Creat Clear Calc 95 Estimated GFR > 60 Glucose 104 Uric Acid Calcium 8.0 L Total Bilirubin 1.5 H AST 501 H ALT 145 H Alkaline Phosphatase 245 H Total Protein 6.0 L Albumin 2.9 L Urin
[2021-04-26] MEDS: IBUPROFEN 600 MG TABLET PO (15:55)
[2021-04-26 17:28] LABS: Hematocrit 24.9 % (37.0-47.0); Hemoglobin 8.2 g/dL (12.0-15.0); Immature Platelet Fraction Pct 6.5 % (0.9-11.2); Mean Corpuscular HGB Conc 32.9 g/dl (32-36); Mean Corpuscular Hemoglobin 29.3 pg (26-34); Mean Corpuscular Volume 88.9 fl (80-100); Mean Platelet Volume 10.6 fl (7.4-10.4); Platelet Count Result 61 k/mm3 (150-375); Red Cell Distribution Width 14.6 % (11.5-14.5); White Blood Count 9.5 K/mm3 (4.5-10.0)
[2021-04-26 17:38] LABS: Alanine Aminotransferase 67 U/L (4-35); Albumin Level 2.5 g/dL (3.5-5.1); Alkaline Phosphatase 178 U/L (38-126); Anion Gap 4 mmol/L (8-16); Aspartate Amino Transferase 267 U/L (14-36); Bilirubin,Total 1.2 mg/dL (0.2-1.3); Blood Urea Nitrogen 12 mg/dL (7-17); Calcium 6.6 mg/dL (8.4-10.2); Carbon Dioxide 23 mmol/L (22-30); Chloride 103 mmol/L (98-107); Estimated CRCL calculation 110 ml/min; Estimated Glomerular Filt Rate > 60; Glucose 94 mg/dL (65-105); Potassium 4.2 mmol/L (3.4-5.0); Sodium 130 mmol/L (137-145)
--- NOTE | 2021-04-26 17:54 | PC.NURSE ---
1729 Pt has remained free from symptoms of HIP throughout the day. Denies MAURICIO, epigastric pain, blurry vision or visual disturbances. Reflexes are improving from brisk this morning to normal +2 bilateral patellar this evening. moved from bed to chair without difficulty.
[2021-04-26] MEDS: LACTATED RINGERS 1,000 ML 125 ML ×2 (21:56→21:57)
[2021-04-27] VITALS (10 sets, daily range): BP systolic 116–123; BP diastolic 64–83; PULSE 75–90; RESP 16–20; TEMP 36.2–37.4; O2SAT 98
[2021-04-27] MEDS: IBUPROFEN 600 MG TABLET PO ×4 (00:40→23:20)
[2021-04-27] MEDS: HYDROcodone/acetaminophen (*CRX) 5-325 MG TABLET 1 TAB PO ×3 (00:40→14:39)
[2021-04-27 05:25] LABS: Basophils Percent Auto 0.2 % (0.2-1.2); Eosinophils Absolute Auto 0.1 K/mm3 (0-0.3); Eosinophils Percent Auto 0.7 % (0-4.4); Hematocrit 22.7 % (37.0-47.0); Hemoglobin 7.3 g/dL (12.0-15.0); Immature Granulocyte Absolute 0.05 K/mm3 (0.00-0.031); Immature Granulocyte Percent A 0.5 % (0-0.5); Immature Platelet Fraction Pct 6.2 % (0.9-11.2); Lymphocytes Absolute Auto 2.99 K/mm3 (0.9-3.2); Lymphocytes Percent Auto 32.7 % (18.3-44.2); Mean Corpuscular HGB Conc 32.2 g/dl (32-36); Mean Corpuscular Hemoglobin 29.4 pg (26-34); Mean Corpuscular Volume 91.5 fl (80-100); Mean Platelet Volume 10.6 fl (7.4-10.4); Monocytes Absolute Auto 0.5 K/mm3 (0.1-0.6); Monocytes Percent Auto 5.8 % (2.6-8.5); Neutrophils Absolute Auto 5.5 K/mm3 (1.3-6.7); Neutrophils Percent Auto 60.1 % (45.5-73.1); Platelet Count Result 55 k/mm3 (150-375); Red Blood Count 2.48 M/mm3 (4.2-5.4); Red Cell Distribution Width 15.1 % (11.5-14.5); White Blood Count 9.1 K/mm3 (4.5-10.0)
[2021-04-27 05:32] LABS: Alanine Aminotransferase 45 U/L (4-35); Albumin Level 2.4 g/dL (3.5-5.1); Alkaline Phosphatase 177 U/L (38-126); Anion Gap 3 mmol/L (8-16); Aspartate Amino Transferase 123 U/L (14-36); Bilirubin,Total 0.5 mg/dL (0.2-1.3); Blood Urea Nitrogen 9 mg/dL (7-17); Calcium 6.6 mg/dL (8.4-10.2); Carbon Dioxide 26 mmol/L (22-30); Chloride 104 mmol/L (98-107); Estimated CRCL calculation 95 ml/min; Estimated Glomerular Filt Rate > 60; Glucose 103 mg/dL (65-105); Potassium 3.8 mmol/L (3.4-5.0); Sodium 133 mmol/L (137-145)
[2021-04-27] MEDS: LACTATED RINGERS 1,000 ML 125 ML (05:54)
--- NOTE | 2021-04-27 06:46 | PM.OBPNVD ---
OB - PN: Subj Subjective Date/time seen: 04/27/21 06:46 Postop day 2 status post for HELLP syndrome. Overall she is doing well as she is tolerating regular diet oral pain medications without any significant complaints. Urine has cleared and increased in output. Bleeding is scant. OB - PN: Obj Data Labs CBC & Chem 7: 04/27/21 05:12 04/27/21 05:13 Labs: Laboratory Results - last 24 hr 04/26/21 04/26/21 04/26/21 05:48 17:19 17:19 WBC 9.5 RBC 2.80 L Hgb 8.2 L D Hct 24.9 L MCV 88.9 MCH 29.3 MCHC 32.9 RDW 14.6 H Plt Count 61 L D MPV 10.6 H Immature Gran % (Auto) Neut % (Auto) Lymph % (Auto) [place] % (Auto) Eos % (Auto) Baso % (Auto) Lymph # (Auto) [place] # (Auto) Eos # (Auto) Baso # (Auto) Abs Immat Gran (auto) Absolute Neuts (auto) Absolute Nucleated RBC Nucleated RBC % % Immature Plt Fraction 6.5 Sodium 136 L 130 L Potassium 4.4 4.2 Chloride 105 103 Carbon Dioxide 22 23 Anion Gap 9 4 L BUN 13 12 Creatinine 0.70 0.60 L Estim Creat Clear Calc 95 110 Estimated GFR > 60 > 60 Glucose 104 94 Calcium 8.0 L 6.6 L Total Bilirubin 1.5 H 1.2 AST 501 H 267 H ALT 145 H 67 H Alkaline Phosphatase 245 H 178 H Total Protein 6.0 L 5.0 L Albumin 2.9 L 2.5 L 04/27/21 04/27/21 05:12 05:13 WBC 9.1 RBC 2.48 L Hgb 7.3 L Hct 22.7 L MCV 91.5 MCH 29.4 MCHC 32.2 RDW 15.1 H Plt Count 55 L MPV 10.6 H Immature Gran % (Auto) 0.5 Neut % (Auto) 60.1 Lymph % (Auto) 32.7 [place] % (Auto) 5.8 Eos % (Auto) 0.7 Baso % (Auto) 0.2 Lymph # (Auto) 2.99 [place] # (Auto) 0.5 Eos # (Auto) 0.1 Baso # (Auto) 0.0 Abs Immat Gran (auto) 0.05 H Absolute Neuts (auto) 5.5 Absolute Nucleated RBC 0.0 Nucleated RBC % 0.0 % Immature Plt Fraction 6.2 Sodium 133 L Potassium 3.8 Chloride 104 Carbon Dioxide 26 Anion Gap 3 L BUN 9 Creatinine 0.70 Estim Creat Clear Calc 95 Estimated GFR > 60 Glucose 103 Calcium 6.6 L Total Bilirubin 0.5 AST 123 H ALT 45 H Alkaline Phosphatase 177 H Total Protein 5.0 L Albumin 2.4 L OB - PN A/P Plan day: 2 Comments: 1. Will continue to monitor labs superiorly. Though her platelet count is still low should start to see a rebound tenderness today or tomorrow. Otherwise her laboratory studies are all resolving to normal. 2. We will stop her magnesium sulfate removed catheter and began to ambulate. 3. Will continue to monitor blood pressure and other symptomatology. Time Spent With Patient Time: Total time spent is greater than 50% in coordination of care (as documented) at patient's floor/unit and/or counseling patient: Exam Narrative: Exam Narrative: Abdomen soft nontender some bruising noted. Bandages clear lb removed today.
[2021-04-27] MEDS: POLYSACCHARIDE IRON COMPLEX 150 MG CAPSULE PO ×2 (07:14→16:37)
[2021-04-27] MEDS: DOCUSATE SODIUM 100 MG CAPSULE PO ×2 (07:14→16:37)
[2021-04-27] MEDS: MULTIVIT/MIN/PREN/FOL AC/IRON TABLET 1 TAB PO (07:14)
[2021-04-27] MEDS: SIMETHICONE 80 MG TAB.CHEW PO ×2 (07:15→16:37)
--- NOTE | 2021-04-27 07:48 | WPDANLDPN2 ---
Anes-Prog Note L&D Date/Time: 04/27/21 07:48 Comfortable throughout: section Neuraxial method: spinal Epidural/Spinal procedure site: clean & non-tender Neuro status: Neuro function grossly intact. Cardiovascular status: normal Respiratory status: normal Airway patency: baseline Mental status: baseline Post-Op hydration status: normal Vital Signs: Last Vital Signs Temp 36.4 C L 04/27/21 05:12 Pulse 75 04/27/21 05:12 Resp 16 04/27/21 05:12 BP 123/80 04/27/21 05:12 Pulse Ox 99 04/26/21 17:00 Pain score (VAS): none I/O: Intake & Output 04/26/21 04/26/21 04/27/21 15:59 23:59 07:59 Intake Total 095 477 1604 Output Total 853 181 4727 Balance 490 -350 -2100 Post-procedural complaints: none Patient feedback: Patient satisfied with anesthetic care.
--- NOTE | 2021-04-27 07:49 | WPDANLDNPN2 ---
Anes-Prog Note L&D-Neuraxial Date/Time: 04/27/21 07:49 Neuraxial medications: intrathecal PF morphine Opiod-related complaints: none Patient feedback: Patient satisfied with post-operative pain management.
[2021-04-27] MEDS: LABETALOL HCL 100 MG TABLET 200 MG PO ×2 (09:00→21:08)
--- NOTE | 2021-04-27 09:30 | PC.NURSE ---
Consult with pt., mother is listed as breast/bottle. Mother has only bottle fed at this time. Offered assist with latch or pu mping. Discussed stimulation of milk supply. Mother states she does not wish to pump at this time and will continue to bottle feed.
[2021-04-27] MEDS: ONDANSETRON INJ 4 MG/2 ML VIAL IV PUSH (10:03)
[2021-04-27] MEDS: ACETAMINOPHEN 325 MG TABLET 650 MG PO (10:18)
[2021-04-27 10:35] LABS: Rapid Plasma Reagin Non-Reactive (NonReactive)
[2021-04-27 18:04] LABS: Hematocrit 22.4 % (37.0-47.0); Hemoglobin 7.2 g/dL (12.0-15.0); Immature Platelet Fraction Pct 8.4 % (0.9-11.2); Mean Corpuscular HGB Conc 32.1 g/dl (32-36); Mean Corpuscular Hemoglobin 29.3 pg (26-34); Mean Corpuscular Volume 91.1 fl (80-100); Mean Platelet Volume 10.6 fl (7.4-10.4); Platelet Count Result 63 k/mm3 (150-375); Red Blood Count 2.46 M/mm3 (4.2-5.4); White Blood Count 12.8 K/mm3 (4.5-10.0)
[2021-04-27 18:15] LABS: Alanine Aminotransferase 34 U/L (4-35); Albumin Level 2.5 g/dL (3.5-5.1); Alkaline Phosphatase 152 U/L (38-126); Anion Gap 1 mmol/L (8-16); Aspartate Amino Transferase 72 U/L (14-36); Bilirubin,Total 0.4 mg/dL (0.2-1.3); Blood Urea Nitrogen 11 mg/dL (7-17); Calcium 7.3 mg/dL (8.4-10.2); Carbon Dioxide 26 mmol/L (22-30); Chloride 107 mmol/L (98-107); Estimated CRCL calculation 84 ml/min; Estimated Glomerular Filt Rate > 60; Glucose 95 mg/dL (65-105); Potassium 4.3 mmol/L (3.4-5.0); Sodium 134 mmol/L (137-145)
[2021-04-27] MEDS: HYDROcodone/acetaminophen (*CRX) 10-325 MG TABLET 1 TAB PO (23:20)
[2021-04-28 05:05] VITALS: BP 126/80; PULSE 82; RESP 18; TEMP 36.9; O2SAT 96
[2021-04-28] MEDS: HYDROcodone/acetaminophen (*CRX) 5-325 MG TABLET 1 TAB PO ×2 (05:10→21:05)
[2021-04-28 06:04] LABS: Hematocrit 22.4 % (37.0-47.0); Hemoglobin 7.2 g/dL (12.0-15.0); Immature Platelet Fraction Pct 7.2 % (0.9-11.2); Mean Corpuscular HGB Conc 32.1 g/dl (32-36); Mean Corpuscular Hemoglobin 29.8 pg (26-34); Mean Corpuscular Volume 92.6 fl (80-100); Mean Platelet Volume 11.9 fl (7.4-10.4); Platelet Count Result 77 k/mm3 (150-375); Red Blood Count 2.42 M/mm3 (4.2-5.4); Red Cell Distribution Width 15.2 % (11.5-14.5); White Blood Count 15.7 K/mm3 (4.5-10.0)
[2021-04-28 06:15] LABS: Alanine Aminotransferase 28 U/L (4-35); Albumin Level 2.5 g/dL (3.5-5.1); Alkaline Phosphatase 152 U/L (38-126); Anion Gap 3 mmol/L (8-16); Aspartate Amino Transferase 54 U/L (14-36); Bilirubin,Total 0.2 mg/dL (0.2-1.3); Blood Urea Nitrogen 11 mg/dL (7-17); Calcium 7.3 mg/dL (8.4-10.2); Carbon Dioxide 24 mmol/L (22-30); Chloride 107 mmol/L (98-107); Estimated CRCL calculation 95 ml/min; Estimated Glomerular Filt Rate > 60; Glucose 75 mg/dL (65-105); Potassium 4.3 mmol/L (3.4-5.0); Sodium 134 mmol/L (137-145)
[2021-04-28 08:00] VITALS: BP 117/68; PULSE 92; RESP 16; RESP 18; TEMP 36.3
[2021-04-28] MEDS: HYDROcodone/acetaminophen (*CRX) 10-325 MG TABLET 1 TAB PO ×2 (08:53→16:03)
[2021-04-28] MEDS: IBUPROFEN 600 MG TABLET PO ×2 (08:55→16:04)
[2021-04-28] MEDS: MULTIVIT/MIN/PREN/FOL AC/IRON TABLET 1 TAB PO (08:55)
[2021-04-28] MEDS: POLYSACCHARIDE IRON COMPLEX 150 MG CAPSULE PO ×2 (08:55→16:03)
[2021-04-28 08:56] VITALS: PULSE 92
[2021-04-28] MEDS: SIMETHICONE 80 MG TAB.CHEW PO ×2 (08:56→16:04)
[2021-04-28] MEDS: DOCUSATE SODIUM 100 MG CAPSULE PO ×2 (08:56→16:04)
[2021-04-28] MEDS: LABETALOL HCL 100 MG TABLET 200 MG PO ×2 (08:56→21:05)
[2021-04-28 13:35] VITALS: BP 121/77; PULSE 80; RESP 16; TEMP 36.5; O2SAT 98
[2021-04-28 16:00] VITALS: BP 120/72; PULSE 80; RESP 17; TEMP 36.1
[2021-04-28] MEDS: ONDANSETRON INJ 4 MG/2 ML VIAL IV PUSH (16:03)
--- NOTE | 2021-04-28 18:06 | P.PNOB_ITS ---
OB - PN: Subj Subjective Date/time seen: 04/28/21 18:06 Patient comments: no complaints, pain well controlled, tolerating diet and flatus present [place] baby status: doing well [place] feeding status: breast and bottle feeding OB - PN: Obj Data Labs CBC & Chem 7: 04/28/21 05:26 04/28/21 05:26 OB - PN A/P Assessment and Plan (1) HELLP syndrome: Code(s): O14.20 - HELLP syndrome (HELLP), unspecified trimester Status: Acute (2) induced hypertension: Code(s): O13.9 - Gestational [-induced] hypertension without significant proteinuria, unspecified trimester Status: Acute (3) Term delivered: Code(s): O80 - Encounter for full-term uncomplicated delivery Status: Acute (4) delivery due to maternal disorder: Code(s): O99.892 - Other specified diseases and conditions complicating childbirth Status: Acute Plan day: 2 Plan: routine care, discharge home and follow up 6 weeks Time Spent With Patient Time: Total time spent is greater than 50% in coordination of care (as documented) at patient's floor/unit and/or counseling patient: Time with patient: less than 15 minutes Review of Systems Review of Systems: All systems reviewed & are unremarkable except as noted in HPI and below Exam Const: General: cooperative, healthy appearing, comfortable, no acute distress, well developed, alert, awake and Physically active Nutritional Appearance: average body habitus Orientation/consciousness: patient oriented x3 Limitations: no limitations HENMT: Head: normal to inspection Eyes: General: appearance normal, both eyes and all related structures Neck: Neck: normal visual inspection and full ROM Chest: Chest palpation & inspection: normal inspection of the chest Resp: Effort & Inspection: normal respiratory effort Auscultation: clear to auscultation bilaterally Cardio: Palpation: normal PMI Rate: regular rate Rhythm: regular rhythm Heart sounds: S1 normal heart sound present and S2 normal heart sound present GI: Inspection: normal to inspection and incision (DDI) GI Palp: Yes Soft to palpation Percussion: Yes normal to percussion Auscultation: normal bowel sounds : External Female Exam: normal external appearance Bimanual exam- vagina & uterus: non-tender Back/Spine/Pelvis: Back: no CVA tenderness Skin: General skin exam: normal color Neuro: General: patient oriented x3, gait normal, tone normal, moves all extremities, Normal light touch and pain sensation and no focal motor deficits Extrem: General: normal to inspection and full ROM Psych: Appearance: grossly normal Mental Status: mental status grossly normal Speech and movement: Normal speech and movement present Affect: normal affect Attitude: cooperative Thought process: Normal thought process present Thought content: Yes Normal thought content present Insight: Good insight present (Psych) Judgement: Good judgement present (Psych)
[2021-04-28 21:05] VITALS: BP 124/92; PULSE 77; RESP 16; TEMP 36.9
[2021-04-29] MEDS: HYDROcodone/acetaminophen (*CRX) 5-325 MG TABLET 1 TAB PO ×3 (04:24→19:30)
[2021-04-29] MEDS: IBUPROFEN 600 MG TABLET PO ×3 (04:24→19:30)
[2021-04-29 08:20] VITALS: BP 135/84; PULSE 81; RESP 18; TEMP 36.2; O2SAT 98
[2021-04-29] MEDS: POLYSACCHARIDE IRON COMPLEX 150 MG CAPSULE PO ×2 (09:58→17:08)
[2021-04-29 09:59] VITALS: PULSE 80
[2021-04-29] MEDS: MULTIVIT/MIN/PREN/FOL AC/IRON TABLET 1 TAB PO (09:59)
[2021-04-29] MEDS: DOCUSATE SODIUM 100 MG CAPSULE PO ×2 (09:59→17:08)
[2021-04-29] MEDS: LABETALOL HCL 100 MG TABLET 200 MG PO ×2 (09:59→19:30)
[2021-04-29 12:35] VITALS: BP 138/81; PULSE 73; RESP 18; TEMP 36.5; O2SAT 100
--- NOTE | 2021-04-29 13:37 | PC.NURSE ---
Consult with pt., mother does not wish to pump or attempt infant to breast.
[2021-04-29 17:00] VITALS: BP 117/69; PULSE 98; RESP 18; TEMP 36.6
--- NOTE | 2021-04-29 18:10 | PM.OBDSVD ---
DS: Admitting Diagnosis Admitting Diagnosis Admitting Diagnosis: iup 37weeks HELLP syndrome severe PIH DS: Discharge Diagnosis Discharge Diagnosis (1) 37 weeks gestation of : Code(s): Z3A.37 - 37 weeks gestation of Status: Acute (2) induced hypertension: Code(s): O13.9 - Gestational [-induced] hypertension without significant proteinuria, unspecified trimester Status: Acute (3) HELLP syndrome: Code(s): O14.20 - HELLP syndrome (HELLP), unspecified trimester Status: Acute (4) Term delivered: Code(s): O80 - Encounter for full-term uncomplicated delivery Status: Acute (5) delivery due to maternal disorder: Code(s): O99.892 - Other specified diseases and conditions complicating childbirth Status: Acute OB - DS: Summary Hospital Course Time spent discussing smoking cessation with patient: 3 to 10 minutes OB Procedures : NST and Ultrasound OB Procedures Intrapartum: low cervical, transverse OB Procedures: : Other (magnesium sulfate) Peripartum Data Delivery Method: Section Laceration Description: None Episiotomy description: None Procedures: Procedures Operation Date: 04/25/21 23:45 Actual Procedure Side Surgeon p Section Mirza Alberto MD complications: none 1: Gender: Female Disposition of : home Status at Discharge Cognitive/behavioral status at discharge: normal Functional status at discharge: independent ambulation Overall status at discharge: patient is back to baseline Time Spent with Patient Time attestation: Total time spent providing and/or coordinating discharge services: Time spent: Less than 30 minutes Exam Const: General: cooperative, healthy appearing, comfortable, no acute distress, well developed, alert, awake and Physically active Nutritional Appearance: average body habitus Orientation/consciousness: patient oriented x3 Limitations: no limitations HENMT: Head: normal to inspection Eyes: General: appearance normal, both eyes and all related structures Neck: Neck: normal visual inspection and full ROM Chest: Chest palpation & inspection: normal inspection of the chest Resp: Effort & Inspection: normal respiratory effort Auscultation: clear to auscultation bilaterally Cardio: Rate: regular rate Rhythm: regular rhythm Heart sounds: S1 normal heart sound present and S2 normal heart sound present GI: Inspection: normal to inspection and incision (clean dry intact) Percussion: Yes normal to percussion Auscultation: normal bowel sounds : External Female Exam: normal external appearance Bimanual exam- vagina & uterus: non-tender Back/Spine/Pelvis: Back: no CVA tenderness Skin: General skin exam: normal color Neuro: General: patient oriented x3, gait normal, tone normal, moves all extremities, Normal light touch and pain sensation, no meningeal signs and no focal motor deficits Extrem: General: normal to inspection and full ROM Psych: Appearance: grossly normal Mental Status: mental status grossly normal Speech and movement: Normal speech and movement present Affect: normal affect Attitude: cooperative Thought process: Normal thought process present Thought content: Yes Normal thought content present Insight: Good insight present (Psych) Judgement: Good judgement present (Psych) DS: Data Data Completed and Pending Pending studies at discharge: Pending at discharge 04/26/21 00:33 Surgical [PTH] Routine Discharge Plan Discharge Attending physician on discharge: Conor Chamorro Discharging Clinician: Conor Chamorro Anticipated Discharge Date/Time: 04/29/21 18:16 Patient Disposition: Home, Self-Care Activity: may shower, no straining, no driving and may drive after 2 weeks Diet: as tolerated and regular Wound Care Instructions: fo
[2021-04-29 19:30] VITALS: PULSE 77
== END 2021-04-29 20:00 | disposition home or self-care (01) | DRG 540 ==
LOC: ANHLDR 04-26 00:20 → ANHOB2 04-26 04:02
PROVIDERS: Anesthesiology; Admitting Provider Obstetrics & Gynecology; PCP Physician Assistant; Visit Provider Obstetrics & Gynecology
PROC: (CPT 59514; principal; 2021-04-25 23:45)
DX: O13.4 Gestational [pregnancy-induced] hypertension without significant proteinuria, complicating childbirth (principal); O14.24 HELLP syndrome, complicating childbirth; Z3A.37 37 weeks gestation of pregnancy; Z37.0 Single live birth
CPT/HCPCS: 36415; 80053; 81001; 82570; 84156; 84550; 85025; 85027; 85055; 85610; 85730; 86592; 86703; 86850; 86900; 86901; 88307; A9270; G0432; J0690; J1200; J1885; J2274; J2405; J2590; J3475; J7120

== ENCOUNTER 2021-09-19 11:07 | Emergency (ER) | payer OTHER, SELFPAY ==
[2021-09-19] VITALS (11 sets, daily range): BP systolic 106–114; BP diastolic 59–69; PULSE 70–76; RESP 18–20; TEMP 36.2; O2SAT 100
--- NOTE | ~2021-09-19 | CT_ITS ---
EXAMINATION: CT abdomen pelvis w con DATE: 09/19/2021 12:28 INDICATION: Right lower quadrant abdominal pain. Diarrhea. TECHNIQUE: Computed tomography (CT) of the abdomen and pelvis was performed with 100 mL Omnipaque 350 intravenous contrast. Automated exposure control and iterative reconstruction technique were employe d. The dose-length product was 190.11 mGy-cm. COMPARISON: None. FINDINGS: The visualized portions of the lung bases demonstrate minimal atelectasis. No pleural effus ion. The heart size is normal. No pericardial effusion. The liver, gallbladder, spleen, pancreas, adr enal glands, and kidneys are normal. The appendix is normal. There are no pathologically enlarged lym ph nodes. There is no free intraperitoneal fluid. The bones are unremarkable. IMPRESSION: 1. No etiology for the patient's symptoms. Reviewed, dictated and finalized at location A. [facility]
[2021-09-19 11:59] LABS: Basophils Percent Auto 0.4 % (0.2-1.2); Eosinophils Absolute Auto 0.1 K/mm3 (0-0.3); Eosinophils Percent Auto 1.8 % (0-4.4); Hematocrit 36.7 % (37.0-47.0); Hemoglobin 12.3 g/dL (12.0-15.0); Immature Granulocyte Absolute 0.01 K/mm3 (0.00-0.031); Immature Granulocyte Percent A 0.1 % (0-0.5); Lymphocytes Absolute Auto 2.24 K/mm3 (0.9-3.2); Lymphocytes Percent Auto 32.7 % (18.3-44.2); Mean Corpuscular HGB Conc 33.5 g/dl (32-36); Mean Corpuscular Hemoglobin 29.1 pg (26-34); Mean Corpuscular Volume 86.8 fl (80-100); Mean Platelet Volume 9.5 fl (7.4-10.4); Monocytes Absolute Auto 0.4 K/mm3 (0.1-0.6); Monocytes Percent Auto 6.4 % (2.6-8.5); Neutrophils Percent Auto 58.6 % (45.5-73.1); Platelet Count Result 294 k/mm3 (150-375); Red Blood Count 4.23 M/mm3 (4.2-5.4); Red Cell Distribution Width 14.6 % (11.5-14.5); White Blood Count 6.9 K/mm3 (4.5-10.0)
[2021-09-19] MEDS: SODIUM CHLORIDE 0.9% IV 1,000 ML 999 ML IV CONT (12:02)
[2021-09-19] MEDS: ONDANSETRON INJ 4 MG/2 ML VIAL IV PUSH (12:02)
[2021-09-19 12:08] LABS: Alanine Aminotransferase 8 U/L (4-35); Albumin Level 4.5 g/dL (3.5-5.1); Alkaline Phosphatase 64 U/L (38-126); Anion Gap 8 mmol/L (8-16); Aspartate Amino Transferase 24 U/L (14-36); Bilirubin,Total 0.8 mg/dL (0.2-1.3); Blood Urea Nitrogen 10 mg/dL (7-17); Calcium 9.7 mg/dL (8.4-10.2); Carbon Dioxide 23 mmol/L (22-30); Chloride 108 mmol/L (98-107); Estimated CRCL calculation 80 ml/min; Estimated Glomerular Filt Rate > 60; Glucose 94 mg/dL (65-110); Lipase 92 U/L (23-300); Potassium 4.4 mmol/L (3.4-5.0); Sodium 139 mmol/L (137-145)
[2021-09-19 12:18] LABS: Add Urine Microscopic? YES; Appearance Urine Cloudy (Clear); Bacteria Urine Trace /hpf; Bilirubin Urine Negative (Negative); Blood Urine 1+ (Negative); Color Urine Yellow (Yellow); Glucose Urine UA Negative (Negative); Ketones Urine Negative (Negative); Leukocyte Esterase Ur Trace LEU/UL (Negative); Mucus Urine Rare /lpf; Nitrate Urine Negative (Negative); Protein Urine Negative (Negative); RBC Urine 0-2 /hpf (0-2); Specific Grav Ur 1.013 (1.001-1.035); Squamous Epithelial Cell Urine Many /hpf (Few); Urobilinogen Urine Negative mg/dL (<2.0)
--- NOTE | 2021-09-19 12:40 | ED.ABDPAIN ---
HPI - Abdominal Pain General Chief Complaint: Abdominal Pain Stated Complaint: RLQ abd pain Time Seen by Provider: 09/19/21 11:51 Source: patient History of Present Illness HPI narrative: Patient presents with right lower quadrant abdominal pain. Patient reports symptoms present for the past couple days. Pain is achy, constant, no radiation alleviated with rest worse with walking around. Symptoms are associated nausea vomiting and diarrhea. She denies any urinary symptoms. She denies any prior abdominal surgeries. She denies recent cough, congestion, fevers or chills. Related Data Allergies Allergy/AdvReac Type Severity Reaction Status Date / Time morphine Allergy Unknown Difficulty Verified 09/19/21 11:43 Breathing Review of Systems Review of Systems: CONSTITUTIONAL: Denies fever, chills, or sweats. EYES: Denies visual changes, redness, or discharge. ENT: Denies rhinorrhea, congestion, sore throat, or otalgia. CARDIOVASCULAR: Denies chest pain, palpitations, or edema. RESPIRATORY: Denies cough or dyspnea. GASTROINTESTINAL: Patient reports abdominal pain nausea vomiting diarrhea. GENITOURINARY: Denies dysuria or hematuria. SKIN: Denies rash or itching. MUSCULOSKELETAL: Denies back pain, joint pain, or myalgia. NEUROLOGIC: Denies headache, numbness, dizziness, or weakness. PSYCHIATRIC: Denies anxiety or depression. All systems reviewed & are unremarkable except as noted in HPI and below PMFSH Past Medical History Medical History delivery due to maternal disorder HELLP syndrome Patellar tendonitis induced hypertension Term delivered Surgical History Surgical History No significant past surgical history Social History Social History Smoking status: Never smoker Substance use: never Gender identity (if verbalized by the patient): Female Spiritual care concerns: No Exam Narrative: GENERAL: Well-appearing, well-nourished, and in no acute distress. HEAD: Normocephalic, atraumatic. EYES: PERRLA and EOMI. ENT: Nares clear, no rhinorrhea or epistaxis. Mucous membranes moist. NECK: Supple. No masses. No JVD ABDOMEN: Moderate right lower quadrant pain with rebound and positive Rovsing soft, nondistended EXTREMITIES: Normal range of motion. No edema. SKIN: Warm, dry, no rash. NEURO: No focal deficits. Alert and oriented x3. PSYCH: Normal mood and affect. Course Reevaluation(s) Reevaluation #1: Patient is resting comfortably results and plan reviewed with patient. Patient comfortable outpatient plan. Date: 09/19/21 Time: 13:08 Vital Signs Vital signs: Vital Signs Temperature 36.2 C L 09/19/21 11:40 Pulse Rate 70 09/19/21 11:40 Respiratory Rate 20 09/19/21 11:40 Blood Pressure 107/69 09/19/21 11:40 Pulse Oximetry 100 09/19/21 11:40 Temperature 36.2 C L 09/19/21 11:40 Pulse Rate 76 09/19/21 13:19 Respiratory Rate 18 09/19/21 13:19 Blood Pressure 114/61 09/19/21 13:19 Pulse Oximetry 100 09/19/21 13:19 MDM - Abdominal Pain MDM Narrative Medical decision making narrative: H&P as above, vss, pt looks clinically well, exam with right lower quadrant pain, labs clinically unremarkable UA is equivocal, img unremarkable for acute process, additional labs/img considered, symptomatic relief available as needed. on reevaluation pt continues to looks clinically well. Suspect viral process, dns appendicitis, perforation, abscess, severe sepsis, severe dehydration, small bowel obstruction, pancreatitis, cholecystitis. plan to tx/monitor as op w/ pcm f/u findings/plan discussed with pt, pt agree/comfortable with plan, return precautions given Lab Data Result diagrams: 09/19/21 11:53 09/19/21 11:53 Labs: Lab Results 09/19/21 09/19/21 09/19/21 Range/Units
== END 2021-09-19 13:22 | disposition home or self-care (01) ==
PROVIDERS: Emergency Provider Emergency Medicine; PCP Physician Assistant
DX: R11.2 Nausea with vomiting, unspecified (principal); R19.7 Diarrhea, unspecified; R10.9 Unspecified abdominal pain
CPT/HCPCS: 36415; 74177; 80053; 81001; 81025; 83690; 85025; 87086; 87088; 96361; 96374; 99284; J2405; J7030; Q9967

== ENCOUNTER 2023-10-27 14:35 | Emergency (ER) | payer OTHER, SELFPAY ==
--- NOTE | ~2023-10-27 | CT_ITS ---
EXAMINATION: CT abdomen pelvis w con DATE: 10/27/2023 19:01 INDICATION: LLQ, periumbilical tenderness TECHNIQUE: Computed tomography (CT) of the abdomen and pelvis was performed with 100 mL Omnipaque-350 intravenous contrast. Automated exposure control and iterative reconstruction technique were employe d. The dose-length product was 244.40 mGy-cm. COMPARISON: 09/19/2021. FINDINGS: Lower thorax: Unremarkable Liver: Normal. Biliary/Gallbladder: Gallbladder is normal. No bile duct dilation. Pancreas: No mass or duct dilation. Spleen: Normal. Adrenals:No mass. Kidneys: No suspicious mass, obstructing stone, or hydronephrosis. GI tract: Mild distal esophageal and gastric wall edema. Mild wall edema in the transverse colon. No small or large bowel dilation. Normal appendix. Mesentery/Peritoneum: No ascites, mass, or free air. Retroperitoneum: No mass. Pelvis: Pelvic organs are within normal limits. Soft Tissues: Soft tissues and body wall unremarkable. Bones: No acute osseous finding. IMPRESSION: Mild esophagitis/gastritis. Mild wall edema and transverse colon may reflect mild inflammatory or ischemic colitis. Consider isch emia if there is a history of vasculitis. Reviewed, dictated and finalized at location K. [facility] IMPRESSION: Mild esophagitis/gastritis. Mild wall edema and transverse colon may reflect mild inflammatory or ischemic colitis. Consider ischemia if there is a history of vasculitis.
[2023-10-27 14:36] VITALS: BP 107/57; PULSE 90; RESP 15; TEMP 36.9; O2SAT 100
--- NOTE | 2023-10-27 17:41 | ED.GENADULT ---
[facility] - General Adult General Chief complaint: Abdominal Pain Stated complaint: abdominal pain, nausea, chills. Time Seen by Provider: 10/27/23 16:57 Source: patient Mode of arrival: ambulatory Limitations: no limitations History of Present Illness [facility] narrative: This is a 28-year-old female who presents to the ED with chief complaint of abdominal pain that began suddenly this morning after waking up. Reports it is in the left lower quadrant and radiates to the periumbilical area at times. Reports 6/10 pain constant. She states that the onset of pain was followed shortly by several episodes of vomiting a up to 6 today. Denies diarrhea. Denies any association with food. Endorses chills. denies fevers, urinary symptoms, flank pain, vaginal symptoms, chest pain, shortness of breath, cough, sore throat. Related Data Allergies Allergy/AdvReac Type Severity Reaction Status Date / Time morphine Allergy Unknown Difficulty Verified 09/19/21 11:43 Breathing Review of Systems Review of Systems: All systems as dictated in [facility] Past Medical History Medical History delivery due to maternal disorder HELLP syndrome Patellar tendonitis induced hypertension Term delivered Surgical History Surgical History No significant past surgical history Social History Social History Smoking status: Never smoker Substance use: never Gender identity (if verbalized by the patient): Female Spiritual care concerns: No Exam Narrative: GENERAL: Well-appearing, well-nourished, and in no acute distress. HEAD: Normocephalic, atraumatic. EYES: PERRLA and EOMI. ENT: Nares clear, no rhinorrhea or epistaxis. Mucous membranes moist. Oropharynx without tonsillar hypertrophy exudate or other lesions. NECK: Supple. No adenopathy or masses. CHEST: No respiratory distress. Clear to auscultation. No wheezes rales or rhonchi HEART: Regular rate and rhythm. No murmur heard. Normal peripheral pulses. ABDOMEN: Mild left lower quadrant, suprapubic tenderness and periumbilical tenderness present. Soft, nondistended, normal active bowel sounds. Negative Drew sign. Negative McBurney's point. Negative peritoneal signs. MSK: Normal range of motion. No edema. SKIN: Warm, dry, no rash. NEURO: Alert and oriented x3. No focal deficits. PSYCH: Normal mood and affect. Course Vital Signs Vital signs: Vital Signs Temperature 98.5 F 10/27/23 14:36 Pulse Rate 90 10/27/23 14:36 Respiratory Rate 15 10/27/23 14:36 Blood Pressure 107/57 L 10/27/23 14:36 Pulse Oximetry 100 10/27/23 14:36 Oxygen Delivery Room Air 10/27/23 14:36 Temperature 98.6 F 10/27/23 19:41 Pulse Rate 91 10/27/23 19:41 Respiratory Rate 14 10/27/23 19:41 Blood Pressure 100/59 L 10/27/23 19:41 Pulse Oximetry 100 10/27/23 19:41 Oxygen Delivery Room Air 10/27/23 14:36 Medical Decision Making MDM Narrative Medical decision making narrative: This is a 28-year-old female who presents to the ED with chief complaint of abdominal pain and vomiting. Vitals are normal. Afebrile. There is no flank pain. Left lower quadrant and periumbilical tenderness noted on exam. Soft abdomen. Lab work shows very slight leukocytosis at 10.9. CMP unremarkable. UA shows 3+ ketones 2+ leuks, 21-50 whites and 2+ bacteria. CT abdomen pelvis with IV contrast: Mild esophagitis/gastritis. Mild wall edema and transverse colon may reflect mild inflammatory or ischemic colitis. Consider ischemia if there is a history of vasculitis.. Overall symptoms most consistent with cystitis versus colitis. Will give her treatment with Augmentin to cover for both. She feels ready to go home on re-evaluation. She did not require any pain medications, feels better after Zof
[2023-10-27 18:01] LABS: Basophils Percent Auto 0.1 % (0.2-1.2); Eosinophils Percent Auto 0.3 % (0-4.4); Hematocrit 41.2 % (37.0-47.0); Hemoglobin 13.5 g/dL (12.0-15.0); Immature Granulocyte Absolute 0.02 K/mm3 (0.00-0.031); Immature Granulocyte Percent A 0.2 % (0-0.5); Lymphocytes Absolute Auto 0.66 K/mm3 (0.9-3.2); Lymphocytes Percent Auto 6.1 % (18.3-44.2); Mean Corpuscular HGB Conc 32.8 g/dl (32-36); Mean Corpuscular Hemoglobin 30.3 pg (26-34); Mean Corpuscular Volume 92.6 fl (80-100); Mean Platelet Volume 9.4 fl (7.4-10.4); Monocytes Absolute Auto 0.3 K/mm3 (0.1-0.6); Monocytes Percent Auto 2.4 % (2.6-8.5); Neutrophils Absolute Auto 9.9 K/mm3 (1.3-6.7); Neutrophils Percent Auto 90.9 % (45.5-73.1); Platelet Count Result 307 k/mm3 (150-375); Red Blood Count 4.45 M/mm3 (4.2-5.4); Red Cell Distribution Width 12.4 % (11.5-14.5); White Blood Count 10.9 K/mm3 (4.5-10.0)
[2023-10-27 18:11] LABS: Alanine Aminotransferase 9 U/L (6-35); Albumin Level 4.8 g/dL (3.5-5.1); Alkaline Phosphatase 78 U/L (38-126); Anion Gap 11 mmol/L (8-16); Aspartate Amino Transferase 20 U/L (14-36); Blood Urea Nitrogen 11 mg/dL (7-17); Calcium 9.2 mg/dL (8.4-10.2); Carbon Dioxide 21 mmol/L (22-30); Chloride 105 mmol/L (98-107); Estimated CRCL calculation 95 ml/min; Estimated Glomerular Filt Rate > 60; Glucose 92 mg/dL (65-110); Lipase 51 U/L (23-300); Potassium 4.1 mmol/L (3.4-5.0); Sodium 137 mmol/L (137-145)
[2023-10-27] MEDS: SODIUM CHLORIDE 0.9% IV 1,000 ML 999 ML IV CONT (18:32)
[2023-10-27] MEDS: ONDANSETRON INJ 4 MG/2 ML VIAL IV PUSH (18:33)
[2023-10-27 18:38] LABS: Appearance Urine Cloudy (Clear); Bacteria Urine 2+ /hpf; Bilirubin Urine Negative (Negative); Blood Urine 1+ (Negative); Color Urine Yellow (Yellow); Glucose Urine UA Negative (Negative); Ketones Urine 3+ mg/dL (Negative); Leukocyte Esterase Ur 2+ LEU/UL (Negative); Nitrate Urine Negative (Negative); Non Pathogenic Casts 0-2; Protein Urine Trace mg/dL (Negative); Squamous Epithelial Cell Urine Moderate /hpf (Few); Urobilinogen Urine 0.2 mg/dL (<2.0); WBC Urine 21-50 /hpf; pH Urine 5.5 (5.0-9.0)
[2023-10-27 18:42] LABS: Add Urine Microscopic? YES
[2023-10-27 19:41] VITALS: BP 100/59; PULSE 91; RESP 14; TEMP 37; O2SAT 100
== END 2023-10-27 20:07 | disposition home or self-care (01) ==
PROVIDERS: Emergency Provider Physician Assistant; PCP Physician Assistant
DX: N39.0 Urinary tract infection, site not specified (principal); K29.70 Gastritis, unspecified, without bleeding
CPT/HCPCS: 36415; 74177; 80053; 81001; 81025; 83690; 85025; 87086; 87088; 96361; 96365; 96375; 99285; J0696; J2405; J7030; Q9967

== ENCOUNTER 2025-04-20 09:04 | Emergency (ER) | payer SELFPAY ==
--- NOTE | ~2025-04-20 | US_ITS ---
US OB <=14 wk fetus w TV 04/20/2025 11:21 Indication: Early . Vaginal bleeding. Rule out ectopic . Procedure: Ultrasound of the pelvis performed using transabdominal and endovaginal technique Comparison: No prior studies for comparison. Findings: Uterus measures 8.1 x 4.1 x 4.1 cm. No evidence for intrauterine . Endometrium danny sures 9 mm. No gestational sac. No pole. Ovaries within normal limits. Right ovary measures 1.4 x 1.4 x 1.3 cm. Left ovary measures 2.6 x 1.6 x 1.4 cm. Trace fluid in the pelvic cul-de-sac. Impression: 1: Unremarkable pelvic ultrasound. No evidence for intrauterine . Differential diagnosis if there is a positive test includes very early intrauterine , failed and e ctopic . Recommend follow-up with serial quantitative beta-hCG levels and ultrasound as clin ically indicated. Reviewed, dictated and finalized at location B. Impression: 1: Unremarkable pelvic ultrasound. No evidence for intrauterine . Diff erential diagnosis if there is a positive test includes very early in trauterine , failed and ectopic . Recommend follow- up with serial quantitative beta-hCG levels and ultrasound as clinically indica eliu.
--- OUTSIDE RECORDS SUMMARY | 2025-04-20 09:07 | XMS_ITS | Data Portability ---
Author Organization [facility], [facility] Address [address] [place] [address] Assessment No assessment recorded. Plan of Treatment Reminders Order Date Submit Date Provider Last Modified By Organization Details Last Modified Time Details Appointments None recorded. Lab CBC w/ auto diff 2024 025 [facility] (Lab), [address] [place], [address], 5 01:49:05 HbA1c (hemoglobin A1c), blood 2024 025 [facility] (Lab), [address] , [place], [address], 5 01:49:04 prolactin, serum 2024 025 [facility] (Lab), [address] [place], [address], 5 01:49:04 TSH, serum or plasma 2024 025 [facility] (Lab), [address] , [place], [address], 5 01:49:05 FSH (follicle-s timulating hormone), serum 2024 025 [facility] (Lab), [address], [place], [address], 5 01:49:05 estradiol, serum 2024 025 [facility] (Lab), [address] [facility], [place], [address], 5 01:49:04 lh (luteinizin g hormone), serum 2024 025 [facility] (Lab), [address] [facility], [place], [address], 5 01:49:04 testosteron e free/testos terone total, ratio, serum 2024 025 [facility] (Lab), [address] [facility], [place], [address], 5 01:49:05 progesteron e, serum 2024 025 [facility] (Lab), [address] [facility], [place], [address], 5 01:49:04 pap, IG + reflex HPV if ASC-U - if positive HPV run subtyping 16,18/45Add CT/GC/Trich 2024 025 [facility] (Lab), [address], [place], [address], 5 16:59:12 test, urine 2024 025 [email or web address] Britney, [address], [address], [place], [address], 5 11:58:00 Referral None recorded. Procedures None recorded. Surgeries None recorded. Imaging US, pelvis 2024 025 [email or web address] Britney, [address], [address], [place], [address], 5 12:52:06 US, transvagina l 2024 025 AZAEL Tan, [address], [address], [place], [address], 13:50:29 US, pelvis, complete 2024 025 [email or web address] Not available 16:44:13 Medication Orders None recorded. Patient TargetsNo targets recorded. Patient InstructionsNo instructions recorded. Reason for Referral None Reported. Results Created Date Observation Date Name Description Value Unit Range Abnormal Flag Note LastModifiedBy Organization Detail LastModifiedTime 11/26/1911/26/2024 CBC W/DIF F WBC 9.3 10'3/ uL 3.5-10 .5 Not Available [facility] (Lab) [address], [place], [address], 12/01/2024 19:13:55 11/26/19 25 11/26/2024 CBC W/DIF F RBC 4.44 10'6/ uL (based on docume nted legal sex) 3.80-5 .20 Not Available [facility] (Lab) [address], [place], [address], 12/01/2024 19:13:55 11/26/19 25 11/26/2024 CBC W/DIF F HGB 12.6 g/dL (based on docume nted legal sex) 11.6-1 5.4 Not Available [facility] (Lab) [address], [place], [address], 12/01/2024 19:13:55 11/26/1911/26/2024 CBC W/DIF F HCT 38.6 % (based on docume nted legal sex) 34.0-4 5.0 Not Available [facility] (Lab) [address], [place], [address], 12/01/2024 19:13:55 11/26/19 25 11/26/2024 CBC W/DIF F MCV 86.9 fL 80.0-9 9.0 Not Available [facility] (Lab) [address] [place], [address], 12/01/2024 19:13:55 11/26/19 25 11/26/2024 CBC W/DIF F MCH 28.4 pg 27.0-3 4.0 Not Available [facility] (Lab) [address], [place], [address], 12/01/2024 19:13:55 11/26/19 25 11/26/2024 CBC W/DIF F MCHC 32.6 g/dL 32.0-3 5.5 Not Available [facility] (Lab) [address], [place], [address], 12/01/2024 19:13:55 11/26/19 25 11/26/2024 CBC W/DIF F RDW 13.9 % 11.0-1 5.0 Not Available [facility] (Lab) [address], [place], [address], 12/01/2024 19:13:55 11/26/19 25 11/26/2024 CBC W/DIF F plt 397 10'3/ uL 150-40 0 Not Available [facility] (Lab) [address], [place], [address], 12/01/2024 19:13:55 11/26/19 25 11/26/2024 CBC W/DIF F MPV 10.3 fL 8.8-12 .1 Not Available [facility] (Lab) [address], [place], [address], 12/01/2024 19:13:55 11/26/19 25 11/26/2024 CBC W/DIF F neutrophils 59.1 % 34.0-7 3.0 Not Available [facility] (Lab) [address], [place], [address], 12/01/2024 19:13:55 11/26/19 25 11/26/2024 CBC W/DIF F lymphocytes 32.2 % 15.0-5 0.0 Not Available [facility] (Lab) [address], [place], [address], 12/01/2024 19:13:55 11/26/19 25 11/26/2024 CBC W/DIF F monocytes 6.9 % 1.0-15 .0 Not Available [facility] (Lab) [address] [facility], [place], [address], 12/01/2024 19:13:55 11/26/19 25 11/26/2024 CBC W/DIF F eosinophils 1.1 % 0.0-8. 0 Not Available [facility] (Lab) [address] [facility], [place], [address], 12/01/2024 19:13:55 11/26/19 25 11/26/2024 CBC W/DIF F basophils 0.5 % 0.0-2. 0 Not Available [facility] (Lab) [address], [place], [address], 12/01/2024 19:13:55 11/26/19 25 11/26/2024 CBC W/DIF F immature granulocytes 0.2 % no define d refere nce range Immat ure Granu locyt es (IG) repre sents autom ated enume ratio n of Metam yeloc ytes, Myelo cytes and Promy elocy kb when IG is < 5%. Blast s are not inclu ded in IG and repor eliu separ ately if prese nt. Not Available [facility] (Lab) [address], [place], [address], 12/01/2024 19:13:55 11/26/19 25 11/26/2024 CBC W/DIF F absolute neutrophils 5.5 10'3/ uL 1.5-8. 0 Not Available [facility] (Lab) [address], [place], [address], 12/01/2024 19:13:55 11/26/19 25 11/26/2024 CBC W/DIF F absolute lymphocytes 3.0 10'3/ uL 1.0-4. 0 Not Available [facility] (Lab) [address], [place], [address], 12/01/2024 19:13:55 11/26/1911/26/2024 CBC W/DIF F absolute monocytes 0.6 10'3/ uL 0.2-1. 0 Not Available [facility] (Lab) [address] [place], [address], 12/01/2024 19:13:55 11/26/19 25 11/26/2024 CBC W/DIF F absolute eosinophils 0.1 10'3/ uL 0.0-0. 6 Not Available [facility] (Lab) [address], [place], [address], 12/01/2024 19:13:55 11/26/19 25 11/26/2024 CBC W/DIF F absolute basophils 0.1 10'3/ uL 0.0-0. 3 Not Available [facility] (Lab) [address] [facility], [place], [address], 12/01/2024 19:13:55 11/26/1911/26/2024 CBC W/DIF F absolute immature granulocytes 0.0 10'3/ uL 0.00-0 .10 Refer ence range s for nonbi nary/ inter sex or unspe cifie d gende r patie nts have not been estab lishe d. Pleas e refer to the [facility] table for range s estab lishe d for cisge nder patie nts and evalu ate in the clini mario pa xt of the indiv idual patie nt: https ://trell parker book. nm.or g/Gen derX Not Available [facility] (Lab) [address] [facility], [place], [address], 12/01/2024 19:13:55 11/26/1911/26/2024 HEMOG LOBIN A1C hemoglobin A1C 5.5 % 4.0-5. 6 The Ameri can Diabe kb Assoc iatio n recom mends that a prima ry goal of thera py shoul d be a HBA1C of < 7% and that physi cians shoul d reeva luate the treat ment regim en in patie nts with HBA1C value s consi stent ly > 8%. <5.7% Chelsi l 5.7 - 6.4% Incre ased risk for diabe kb >=6.5 % Diagn ostic of diabe kb <7.0% Goal of thera py >8.0% Actio n sugge sted Not Available [facility] (Lab) [address] [facility], [place], [address], 12/01/2024 19:13:56 11/26/19 25 11/26/2024 PROGE STERO NE progesterone 16.90 NG/mL This assay was perfo rmed using [employer] ratio n reage nts and test kits. Value s obtai jose with other assay metho ds or kits canno t be used inter [facility] . Femal e Proge stero ne Range s: Folli cular phase 0.06- 0.89 ng/mL Ovula tion phase 0.12- 12.00 ng/mL Lutea l phase 1.83- 23.90 ng/mL Postm enopa usal <0.05 -0.13 ng/mL Healt hy Pregn ant Women 1st Trime ster 11.0- 44.30 2nd Trime ster 25.40 -83.3 0 3rd Trime ster 58.70 -214. 00 Not Available [facility] (Lab) [address] [facility], [place], [address], 12/01/2024 19:13:56 11/26/19 25 11/26/2024 ESTRA DIOL estradiol 187.0 pg/mL This assay was perfo rmed using [employer] ratio n reage nts and test kits. Value s obtai jose with other assay metho ds or kits canno t be used inter [facility] . Femal e Estra diol Range s: Folli cular phase 12.4- 233 pg/mL Ovula tion phase 41.0- 398 pg/mL Lutea l phase 22.3- 341 pg/mL Postm enopa usal <5-13 8 pg/mL Healt hy Pregn ant Women 1st Trime ster 154-3 243 pg/mL 2nd Trime ster 1561- 50980 pg/mL 3rd Trime ster 8525- >3000 0 pg/mL Not Available [facility] (Lab) [address] [place], [address], 12/01/2024 19:13:57 11/26/1911/26/2024 PROLA CTIN prolactin, total 42.40 NG/mL 4.79-2 3.30 high This assay was perfo rmed using [employer] ratio n reage nts and test kits. Value s obtai jose with other assay metho ds or kits canno t be used inter [facility] . Not Available [facility] (Lab) [address] [place], [address], 12/01/2024 19:13:57 11/26/1911/26/2024 LH (LUTE NIZIN G HORMO NE) LH 6.1 mIU/m L This assay was perfo rmed using [employer] ratio n reage nts and test kits. Value s obtai jose with other assay metho ds or kits canno t be used inter [facility] . Femal es Mid-F ollic ular: 2.4-1 2.6 mIU/m L Mid-C ycle: 14.0- 95.6 mIU/m L Mid-L uteal : 1.0-1 1.4 mIU/m L Postm enopa use: 7.7-5 8.5 mIU/m L Not Available [facility] (Lab) [address] [place], [address], 12/01/2024 19:13:57 11/26/1911/26/2024 FSH FSH 2.2 mIU/m L This assay was perfo rmed using [employer] n reage nts and test kits. Value s obtai jose with other assay metho ds or kits canno t be used inter [facility] . Femal es Folli cular : 3.5-1 2.5 mIU/m L Ovula tion: 4.7-2 1.5 mIU/m L Lutea l: 1.7-7 .7 mIU/m L Postm enopa use: 25.8- 134.8 mIU/m L Not Available [facility] (Lab) [address] [facility], [place], [address], 12/01/2024 19:13:57 11/26/1911/26/2024 TSH, REFLE X FREE T4 TSH 3.01 uIU/m L 0.30-5 .33 Not Available [facility] (Lab) [address] [facility], [place], [address], 12/01/2024 19:13:58 11/26/1911/26/2024 TESTO STERO NE, FREE( DIALY SIS) AND TOTAL (LC/M S/MS) testosterone , total 23 NG/dL 2-45 For addit ional infor s[facility]lana [facility] refer to http: //[facility] cesar monteroque stdia gnost ics.c om/fa q/ Total Testo stero neLCM SMSFA Q165 (This link is being provi ded for infor alma helton/ educrick guy l purpo ses only. ) This test was devel oped and its addie tical perfo rmanc e raymon cteri stics have been deter mined by [facility] [place]. It has not been clear ed or appro suman by the U.S. Food and Drug Admin istra tion. This assay has been valid ated pursu ant to the CLIA regul ation s and is used for clini mario purpo ses. Not Available [facility] (Lab) [address] [place], [address], 12/01/2024 19:13:58 11/26/1911/26/2024 TESTO STERO NE, FREE( DIALY SIS) AND TOTAL (LC/M S/MS) testosterone , free 2.4 pg/mL 0.1-6. 4 This test was devel oped and its addie tical perfo rmanc e raymon cteri stics have been deter mined by [facility] [place]. It has not been clear ed or appro suman by the U.S. Food and Drug Admin istra tion. This assay has been valid ated pursu ant to the CLIA regul ation s and is used for clini mario purpo ses. Perfo rming Organ izati on Infor matio n: Site ID: AMD Name: [facility] Justin ls Insti tute Addre ss: [id number] [employer] [place], [place] Direc tor: Marcelo Avila MD PhD Not Available [facility] (Lab) [address] [facility], [place], [address], 12/01/2024 19:13:58 11/26/1911/26/2024 IMAGE GUIDE D PAP, REFLE X HPV IF ASCUS ONLY image guided Pap, reflex HPV ASCUS only SEE RESULT S BELOW CASE REPOR T: Cytol ogy Gynec ologi mario Repor t Case: [id number] Autho sen g Provi maurice: Loly enciso, Marilynn , ANP, STENCILER Colle cted: 11/26 1143 Order ing Locat ion: [place] Path[facility] Recei suman: 11/27 0906 First Scree n: Sheila Greene ret, CT Rescr een: Rosina Salamanca , CT Speci men: Scree marcial Pap - Image d, Cervi x STATE MENT OF ADEQU ACY: Satis facto ry for evalu ation Trans forma tion zone compo nent prese nt ----- ----- ----- ----- ----- ----- ----- ----- ----- ----- ----- ----- ----- ----- ----- ----- ----- ---- FINAL DIAGN OSIS: Negat ronan for Intra epith elial Lesio n or Emeteriokim martinez (NIL) . Shift in suma sugge stive of bacte rial vagin osis. 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 CLINI MARIO INFOR MATIO N: Menst rual Statu s: LMP (if appli cable ): Clini mario Histo ry/Pr eviou s Pap: Type of Neopl irena (if appli cable ): Signi fican t Clini mario Findi ngs: Other Histo ry: Hormo rupert (if appli cable ): PAP EDUCA RASHAWN L NOTE: The Pap Test is a scree marcial test with an inher ent false negat ronan rate. Liqui d-bas ed sampl ing may decre ase, but will not elimi dave, false negat ronan resul ts. A negat ronan resul t does not precl ude the prese nce and/o r devel opmen t of disea se, since the prese nce of abnor mal cells in the sampl e depen ds on the locat ion of the lesio n and sampl ing techn ique. Henrik nued regul ar scree marcial is the best metho d of cance r preve ntion . If repor eliu cytol ogic findi ng do not corre late with physi mario and/o r histo rical findi ngs, furth er inves tigat ion is recom brijesh d, as clini trevon dent nted. Not Available [facility] (Lab) [address], [place], [address], 12/03/2024 16:59:12 11/26/19 25 11/26/2024 TRICH OMONA S VAGIN HEATHER (RRNA ) trichomonas vaginalis ribosomal RNA (rrna) Negati ve negati ve Not Available [facility] (Lab) [address] [facility], [place], [address], 12/03/2024 16:59:13 11/26/19 25 11/26/2024 CT/GC (CHENG) , THINP REP VIAL chlamydia trachomatis, PCR Negati ve negati ve Not Available [facility] (Lab) [address] [facility], [place], [address], 12/03/2024 16:59:13 11/26/19 25 11/26/2024 CT/GC (CHENG) , THINP REP VIAL neisseria gonorrhoeae, PCR Negati ve negati ve Not Available [facility] (Lab) [address] [facility], [place], [address], 12/03/2024 16:59:13 11/26/19 25 11/26/2024 pregn blair test, urine HCG negati ve Not Available [facility] [address], [place], [address], 11/26/2024 11:54:38 11/28/19 25 11/28/2024 US, pelvi s No observ ation record ed. [email or web address] [facility] [address], [place], [address], 11/28/2024 13:50:10 11/28/19 25 11/28/2024 US, trans vagin al No observ ation record ed. [email or web address] [facility] [address], [place], [address], 11/28/2024 13:50:29 11/28/19 25 11/28/2024 US, pelvi s No observ ation record ed. AZAEL Leticia [address], [place], [address], 12/04/2024 10:31:43 Result Notes None recorded. Problems Name Problem SNOMED Code Status Onset Date Resolution Date Notes Provider Name and Address Organization Details Recorded Time Past history of premature delivery 946986657 Active 2024 --35wks Margo Yu [facility] 14:37:05 Problem Notes None recorded. Procedures Surgical History Date Name Laterality Status Provider Name and Address Organization Details Recorded Time Date of Last Pap Smear completed Margo Yu [facility] 02/05/2025 20:55:05 Caesarean Section completed [facility] 11/26/2024 11:27:45 Imaging Results None recorded. Procedure Notes None recorded. Medical Equipment None Reported. Allergies Allergen ID Allergen Name Allergen Category Reaction Reaction Severity Criticality Documentation Date Start Date Code Code System Note Provider Name and Address Organization Details Recorded Time 06610 morphine medicatio n Not available Not available Not available 11/26/2024 7052 RxNorm [facility] 11:23:32 Medications Name Sig Start Date Stop Date Status Note LastModified by Organization Details LastModified Time metronidazole 500 mg tablet Take 1 tablet every 12 hours by oral route for 7 days. 02/05 completed Not Available Not Available Not Available Vitals Date Recorded Body height Body mass index (BMI) Body weight Systolic blood pressure Diastolic blood pressure Provider Name and Address Organization Details Last Updated DateTime 11/26/2024 157.48 cm 26.4 kg/m2 96288.74 g 114 mm[Hg] 76 mm[Hg] [facility] 11:23:23 Social History Question Answer Notes LastModified by Organizat ion Details LastModified Time Tobacco Smoking Status Never Smoker [facility] 11/26/2024 11:26:40 Are You Blind Or Do You Have Difficulty Seeing? No [email or web address] Information n ot available 11/26/2024 In The 14 Days Before Symptom Onset, Have You Had Close Contact With A Laboratory-confirm ed COVID-19 While That Case Was Ill? No [email or web address] Information n ot available 11/26/2024 In The 14 Days Before Symptom Onset, Have You Had Close Contact With A Person Who Is Under Investigation For COVID-19 While That Person Was Ill? No [email or web address] Information not available 11/26/2024 Have You Been To An Area Known To Be High Risk For COVID-19? No [email or web address] Information not available 11/26/2024 Are You Deaf Or Do You Have Serious Difficulty Hearing? No [email or web address] Information not available 11/26/2024 What Is The Highest Grade Or Level Of School You Have Completed Or The Highest Degree You Have Received? WP21961-1 [email or web address] Information not available 11/26/2024 Are There Any Guns Present In Your Home? No [email or web address] Information not available 11/26/2024 What Was The Date Of Your Most Recent Tobacco Screening? 10/08/2020 [email or web address] Information not available 10/08/2020 Are You Sexually Active? Yes Information not available 11/26/2024 Do You Have Smoke And Carbon Monoxide Detectors In Your Home? Yes [email or web address] Information not available 11/26/2024 Do You Use Sunscreen Routinely? No [email or web address] Information not available 11/26/2024 Do You Have Difficulty Walking Or Climbing Stairs? No Information not available 11/26/2024 Sex: Unknown Functional Status Question Answer Note LastModified by Organizat ion Details LastModified Time What is your level of alcohol consumption? Moderate [email or web address] Information not available 11/26/2024 Are you currently employed? Yes [email or web address] Information not available 11/26/2024 Are you able to care for yourself? 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 No [email or web address] Information not available 11/26/2024 What is your exercise level? None [email or web address] Information not available 10/08/2020 Mental Status None recorded. Family History Relationship Description Onset Age of this Age Resolved Age Notes LastModified by Organization Details LastModified Time Mother Anemia [email or web address] Not available 11/26/2024 11:25:57 Mother Malignant tumor of breast Not available 2024 11:26:10 Maternal Grandmother Diabetes mellitus [email or web address] Not available 2024 11:26:19 Maternal Grandmother Hypertensive disorder [email or web address] Not available 2024 11:26:28 Medical History Condition Response Allergies (Food, seasonal, environmental ) N Other Y Breast Cancer N Drug/Latex Allergies/Reactions N Blood Transfusion N Dermatologic Disorders N Lung Disease N Defects or Inherited Disease N Breast Problem N Gestational Diabetes N Hematologic disorders N Anesthesia Complications N History of STI N Deep Vein Thrombosis N Polycystic ovary syndrome N Anxiety Disorder N Autoimmune disease N Arthritis N Infertility N Polyps N Acid Reflux (GERD) N History of abnormal pap N Cancer N Stroke N Varicosities N Neurologic/Epilepsy N Endometriosis N High Cholesterol N Headaches N Fibromyalgia N Kidney Disease N Heart Problems N Kidney or Bladder Problems N Thyroid Problems N GI Problems N Eating Disorder N Anemia N Art (IVF or FET) N Psychiatric Illness N Ovarian Cancer N Diabetes N Pulmonary (TB, Asthma) N Hepatitis/Liver Disease N No Past Medical History N Eczema N Urinary Tract Infection N Abuse/Domestic Violence N Asthma N Trauma/Violence N Depression/ depression N Heart Disease N Pre-Eclampsia N Hypertension N Osteoporosis N Thrombophilias N Gynecological History Statement/Question Response Date of Last Mammogram Flow Moderate Date of LMP 10/06/2024 On BCP's at Conception? N Was last menstrual period normal N STIs/STDs N HPV Vaccine N Duration of Flow (days) 5 Current Control Method None Age at First Child 25 Date of Last Colonoscopy Sexually Active? Y Menses Monthly N Date of DEXA bone scan Age of first menstrual cycle 12 Date of Last Pap Smear 11/26/2024 Sexual Problems? Y LMP Approximate Obstetrics History GPAL:G 1 P 0 1 0 1 Type Value Premature 1 Living 1 Total 1 Past Encounters Encounter ID Performer Location Encounter Start Date Encounter Closed Date Diagnosis/Indication Diagnosis SNOMED-CT Code Diagnosis ICD10 Code Diagnosis Note [id number] Siddharth Jarvis MD [facility] [address] [address] 11/26/2024 10:54:27 11/26/2024 12:07:53 Irregular periods 86383282 N92.6 Discussed possible causes of abnormal bleeding, including polyps, fibroids, anovulatio n, thyroid dysfunctio n, cervical dysplasia, infection, endometria l hyperplasi a or malignancy . Lab and imaging studies (TVUS) ordered for further evaluation of irregular bleeding and pelvic pain. Will f/u with results. Pap with HPV reflex updated to r/o cervical dysplasia. STI testing added to r/o infectious causes of sx. test - negative.U rinalysis w/ dipstick - negative. Pain in pelvis 34967790 R10.2 Dyspareunia 24305767 N94 .10 Discussed common possible causes of dyspareuni a and post-coita l bleeding, such as infection, vaginal dryness, and positionin g during intercours e.Recommen ded comfortabl e positions during intercours e and using lubricatio n as needed.Ervin l r/o vaginal infection with pap/sti testing. Postcoital bleeding 4888 0000 N93.0 [id number] Siddharth Jarvis MD [facility] [address] [address] 11/28/2024 09:48:45 11/28/2024 10:37:36 Abnormal uterine bleeding [id number] 9100 N93.9 R10.2 Health Concerns Section Related Observation LastModified by Organization Detai ls LastModified Time None Recorded Concern Status LastModified by Organization Details LastModified Time None Recorded Advance Directives Directive None Recorded Payers Insurance Date Sequence Insurance Name Policy Number Policy Bucio Covered Member ID Bucio Member ID Guarantor Name 12/04/2024 1 *SELF PAY* Willem Cifuentes Notes Date Note Type Note Provider Name and Address Organization Details Recorded Time 11/26/2024 text/html New patient here to establish care and to discuss irregular periods, pelvic pain, and painful intercourse.Patielvira t states that she had a retained tampon in early August and after the tampon came out, she experienced green discharge and vaginal odor that resolved on its own (did not take antibiotics). Patient states that her previous OBGYN ordered a TVUS, but patient did not get it done. Patient states that she had nearly three periods in the month of October, had a 7 day period in September, and has not had one since then. Patient reports abdominal bloating despite regular bowel movements.Patient states that she experiences intermittent pelvic pain and cramping that radiates to the right and left side. Patient also has noticed post-coital bleeding and pain during intercourse over the past two months. Denies current vaginal discharge, odor, itching, or burning.Denies fever, chills, dizziness/syncope, rash, sx, or back pain. Patient reports up until recently, she has had regular periods since menarche. Denies hirsutism, acne, or hx of ovarian cysts. Denies recent STI testing, last pap smear was in 2020 (WNL per pt).Patient states that home tests have been negative. Patient not on control currently as she may want to conceive soon. MARILYNN WITT, ISABEL [address], [place], [id number], [facility] 11/26/2024 12:06:19 OBGyn Episode Ob Episode Information Episode Created Date Number of Fetuses Patient Bloodtype Patient rh Status Prepregnancy Weight lbs Domestic Partner Domestic Partner Phone Father Name Vehicle Assembly Inspector Status 11/26/19 25 1 CLOSED Fetus Data First Name Last Name Admitted to NICU Weight (g) Sex Living Outcome Pediatric Complications Fetus ID Race Codes Race Delivery Type 2381.35 8 F Prematur [place] [id number] Primary Sourav Calculation Initial Sourav Date Initial Exam Date Initial Exam Provider Initial Ultrasound Date Last Menstrual Period Date Ultra Sound Weeks Gestation 0 Eighteen To Twenty Week Sourav Update Ultra Sound Date Fundal Height At Umbil Quickening Date Ultra Sound Latest Weeks Gestation Final Sourav Confirmed By Final Sourav Confirmed Date Final Sourav Date Ultra Sound Latest Days Gestation 0 0 Menstrual History Last Menstrual Date Menses Monthly On Bcp Conception Prior Menses Frequency Hcg Plus Date Menarche Onset Age Delivery Information Delivery Date Delivery Type Labor Anesthesia Weeks Gestation Incision Type Labor Labor Length Hrs Delivered By Post Complications Tubal Sterilization Discharge Date Comments 1 35 Discharge Information Feeding Method Contraceptive Method Maternal HG B and HCT Levels
--- OUTSIDE RECORDS SUMMARY | 2025-04-20 09:08 | XMS_ITS | Data Portability ---
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 Plan of Treatment Reminders Order Date Submit Date Provider Last Modified By Organization Details Last Modified Time Details Appointments ANY 2024 09:00A M DI LOGAN PA-C Not available Not available Not available ANY 15 2024 10:00A M Casandra Hensley Not available Not available Not available Lab pregnanc y test, urine 2024 025 cate In-Office Order, Internal Use Only DO Not Attach Compendium DO Not Attach Compendium, Do Not Delete/merge, [id number] 04/18/2025 11:13:25 lipid panel, serum 2024 025 cate [facility], [address] [place] [address], [address], [place], [address], 04/18/2025 11:13:23 HbA1c (hemoglo bin A1c), blood 2024 025 cate In-Office Order, Internal Use Only DO Not Attach Compendium DO Not Attach Compendium, Do Not Delete/merge, [id number] 04/18/2025 11:13:25 pregnanc y test, urine 2023 024 [email or web address] In-Office Order, Internal Use Only DO Not Attach Compendium DO Not Attach Compendium, Do Not Delete/merge, [id number] 04/09/2024 17:12:37 prolacti n, serum 2023 024 [facility], [address], [address], [place], [address], 04/16/2024 03:06:45 TSH, ultra-se nsitive, serum 2023 024 [facility]P, [address], [address], [place], [address], 04/16/2024 03:06:43 vaginal pathogen s panel, SKY+prob e, vaginal fluid 2023 024 [facility], [address] [facility], [address], [place], [address], 04/10/2024 20:09:03 testoste danial, free + total, serum 2023 024 [facility] AGUIRRE, [address] [facility] [address], [address], [place], [address], 04/16/2024 03:06:41 CBC w/ auto diff 2023 024 [facility] AGUIRRE, [address] [facility] [address], [address], [place], [address], 04/16/2024 03:06:48 lh + FSH, serum 2023 024 [facility] AG[facility], [address] [facility], [address], [place], [address], 04/16/2024 03:06:49 estradio l, serum 2023 024 AZAEL HEAD, [address], [address], [place], [address], 04/16/2024 03:06:46 HbA1c (hemoglo bin A1c), blood 2023 024 AZAEL AGUIRREGARRETT, [address], [address], [place], [address], 04/16/2024 03:06:44 urinalys is, dipstick 2023 024 [email or web address] In-Office Order, Internal Use Only DO Not Attach Compendium DO Not Attach Compendium, Do Not Delete/merge, [id number] 04/09/2024 17:34:02 pregnanc y test, urine 2021 022 [email or web address] 1 In-Office Order, Internal Use Only DO Not Attach Compendium DO Not Attach Compendium, Do Not Delete/merge, [id number] 10/15/2022 09:45:14 PT/PTT, plasma 2021 022 AZAEL HARRISSESAR, [address], [address], [place], [address], 07/31/2022 10:10:03 CMP, serum or plasma 2021 022 AZAEL HARRISSESAR, [address], [address], [place], [address], 07/31/2022 10:10:00 CBC w/ auto diff 2021 022 AZA[facility] HARRISSESAR, [address] [facility] [address], [address], [place], [address], 07/31/2022 10:10:02 iron + total iron-bin ding capacity (TIBC), serum 2021 022 AZAEL HARRISSESAR, [address] [facility] [address], [address], [place], [address], 07/31/2022 10:10:01 ferritin , serum or plasma 2021 022 [facility], [address] [facility], [address], [place], [address], 07/31/2022 10:10:02 vitamin B12 + folate, serum or blood 2021 022 [facility], [address] [facility], [address], [place], [address], 07/31/2022 10:10:00 Referral None recorded . Procedures None recorded . Surgeries None recorded . Imaging US, pelvis, transabd ominal + transvag inal 2023 024 [facility], [address] [place], [address], 09/25/2024 17:05:54 Medication Orders metformi n 500 mg tablet 2024 025 [facility], [address] [place], [address], 04/18/2025 11:13:23 loratadi ne 10 mg tablet 2021 022 [facility], [address] [place] [address], [id number], 04/09/2024 14:48:25 fluoxeti ne 20 mg tablet 2021 022 [facility], [address] [place] [address], [id number], 10/15/2022 09:41:17 Patient TargetsNo targets recorded. Patient Instructions Encounter Date Encounter Id Patient Instructions Last Modified By Organization Details Last Modified Time 07/30/2022 [id number] tension headache: care instructions Not available 07/30/2022 15:19:10 neck spasm: exercises Not available 07/30/2022 15:19:10 nosebleeds: care instructions Not available 07/30/2022 15:18:19 anxiety disorder: care instructions Not available 07/30/2022 15:19:52 depression treatment: care instructions Not available 07/30/2022 15:19:51 04/09/2024 [id number] A healthy lifestyle: care instructions Not available 04/10/2024 15:02:13 learning about planning for future Not available 04/10/2024 15:02:13 On the date of this encounter, I was immediately available to assist the resident/fellow in the care of the patient, and have reviewed and agree with the resident s findings and plan of care. ~MD Beck [email or web address] Not available 04/09/2024 15:32:22 04/18/2025 [id number] abnormal uterine bleeding: care instructions [email or web address] Not available 04/18/2025 11:13:23 Vaginal Bleeding (Nonpregnancy): Care Instructions [email or web address] Not available 04/18/2025 11:13:23 medical record request* [email or web address] Not available 04/18/2025 15:10:09 polycystic ovary syndrome: care instructions [email or web address] Not available 04/18/2025 11:13:23 hypoglycemia: care instructions [email or web address] Not available 04/18/2025 11:13:23 learning about high blood sugar yarauz Not available 04/18/2025 11:13:23 polycystic ovary syndrome: care instructions yarauz Not available 04/18/2025 11:13:23 A healthy lifestyle: care instructions yarauz Not available 04/18/2025 11:13:23 learning about planning for future yarauz Not available 04/18/2025 11:13:23 It's common to have bleeding or spotting between periods. Lots of things can cause it. You may bleed because of hormone problems, stress, or ovulation. Fibroids and IUDs (intrauterine devices) can also cause bleeding. If your bleeding or spotting is caused by one of these things and isn't heavy or doesn't happen often, you probably don't need to worry. But in rare cases, infection, cancer, or other serious conditions can cause bleeding. So you may need more tests to find the cause of your bleeding. Take your medicines exactly as prescribed. Call your doctor if you think you're having a problem with your medicine. Eat a healthy diet. Include vegetables, fruits, beans, and whole grains in your diet each day. If you're overweight, talk to your doctor about safe ways to lose weight. Losing weight can help with many of the symptoms of PCOS. Get at least 30 minutes of exercise on most days of the week. Walking is a good choice. Or you can run, swim, cycle, or play team sports. If you have symptoms that bother you, such as acne and excess hair growth, talk to your doctor about treatment options. Medicines can help. For unwanted hair growth, some prefer to use home treatments. These can include shaving, waxing, or other methods to remove the hair. If you're feeling sad or depressed, consider talking to a counselor or to others who have PCOS. It may help. will obtain pap results from 2024 test results from 04/2024 discussed get pelvic u/s results start trial metformin yarauz Not available 04/18/2025 11:11:12 Reason for Referral None Reported. Results Created Date Observation Date Name Description Value Unit Range Abnormal Flag Note LastModifiedBy Organization Detail LastModifiedTime 07/30/20 22 07/31/2022 VITAM IN B12 AND FOLAT E vitamin B12 716 pg/mL 232-12 45 Not Available [facility] ([facility]) [address] [facility], [place], [address], 07/31/2022 10:10:00 07/30/20 22 07/31/2022 VITAM IN B12 AND FOLAT E folate (folic acid), serum 10.1 NG/mL >3.0 A serum folat e sterling ntrat ion of less than 3.1 ng/mL is consi dered to repre sent clini mario defic iency . Not Available [facility] ([facility]) [address] [facility], [place], [address], 07/31/2022 10:10:00 07/30/20 22 07/31/2022 IRON AND TIBC iron bind.cap.(TI BC) 398 ug/dL 250-45 0 Not Available [facility] ([facility]) [address] [facility], [place], [address], 07/31/2022 10:10:01 07/30/20 22 07/31/2022 IRON AND TIBC UIBC 351 ug/dL 131-42 5 Not Available [facility] ([facility]) [address] [place], [address], 07/31/2022 10:10:01 07/30/20 22 07/31/2022 IRON AND TIBC iron 47 ug/dL 27-159 Not Available [facility] ([facility]) [address] [place], [address], 07/31/2022 10:10:01 07/30/20 22 07/31/2022 IRON AND TIBC iron saturation 12 % 15-55 below low normal Not Available [facility] ([facility]) [address] [place], [address], 07/31/2022 10:10:01 07/30/20 22 07/31/2022 BRAD TIN ferritin 30 NG/mL 15-150 Not Available [facility] ([facility]) [address] [place], [address], 07/31/2022 10:10:01 07/30/20 22 07/31/2022 CBC WITH DIFFE RENTI AL/PL ATELE T WBC 8.2 x10e3 /uL 3.4-10 .8 Not Available [facility] ([facility]) [address] [place], [address], 07/31/2022 10:10:02 07/30/20 22 07/31/2022 CBC WITH DIFFE RENTI AL/PL ATELE T RBC 4.70 x10e6 /uL 3.77-5 .28 Not Available [facility] ([facility]) [address] [place], [address], 07/31/2022 10:10:02 07/30/20 22 07/31/2022 CBC WITH DIFFE RENTI AL/PL ATELE T hemoglobin 14.1 g/dL 11.1-1 5.9 Not Available [facility] ([facility]) [address] [facility], [place], [address], 07/31/2022 10:10:02 07/30/20 22 07/31/2022 CBC WITH DIFFE RENTI AL/PL ATELE T hematocrit 42.2 % 34.0-4 6.6 Not Available [facility] ([facility]) [address] [facility], [place], [address], 07/31/2022 10:10:02 07/30/20 22 07/31/2022 CBC WITH DIFFE RENTI AL/PL ATELE T MCV 90 fL 79-97 Not Available [facility] ([facility]) [address] [facility], [place], [address], 07/31/2022 10:10:02 07/30/20 22 07/31/2022 CBC WITH DIFFE RENTI AL/PL ATELE T MCH 30.0 pg 26.6-3 3.0 Not Available [facility] ([facility]) [address] [place], [address], 07/31/2022 10:10:02 07/30/20 22 07/31/2022 CBC WITH DIFFE RENTI AL/PL ATELE T MCHC 33.4 g/dL 31.5-3 5.7 Not Available [facility] ([facility]) [address] [place], [address], 07/31/2022 10:10:02 07/30/20 22 07/31/2022 CBC WITH DIFFE RENTI AL/PL ATELE T RDW 12.2 % 11.7-1 5.4 Not Available [facility] ([facility]) [address] [place], [address], 07/31/2022 10:10:02 07/30/20 22 07/31/2022 CBC WITH DIFFE RENTI AL/PL ATELE T platelets 389 x10e3 /uL 150-45 0 Not Available [facility] ([facility]) [address] [facility], [place], [address], 07/31/2022 10:10:02 07/30/20 22 07/31/2022 CBC WITH DIFFE RENTI AL/PL ATELE T neutrophils 61 % notest ab. Not Available [facility] ([facility]) [address] [facility], [place], [address], 07/31/2022 10:10:02 07/30/20 22 07/31/2022 CBC WITH DIFFE RENTI AL/PL ATELE T lymphs 31 % notest ab. Not Available [facility] ([facility]) [address] [place], [address], 07/31/2022 10:10:02 07/30/20 22 07/31/2022 CBC WITH DIFFE RENTI AL/PL ATELE T monocytes 5 % notest ab. Not Available [facility] ([facility]) [address] [facility], [place], [address], 07/31/2022 10:10:02 07/30/20 22 07/31/2022 CBC WITH DIFFE RENTI AL/PL ATELE T eos 2 % notest ab. Not Available [facility] ([facility]) [address] [place], [address], 07/31/2022 10:10:02 07/30/20 22 07/31/2022 CBC WITH DIFFE RENTI AL/PL ATELE T basos 1 % notest ab. Not Available [facility] ([facility]) [address] [place], [address], 07/31/2022 10:10:02 07/30/20 22 07/31/2022 CBC WITH DIFFE RENTI AL/PL ATELE T neutrophils (absolute) 5.0 x10e3 /uL 1.4-7. 0 Not Available [facility] ([facility]) [address] [place], [address], 07/31/2022 10:10:02 07/30/20 22 07/31/2022 CBC WITH DIFFE RENTI AL/PL ATELE T lymphs (absolute) 2.5 x10e3 /uL 0.7-3. 1 Not Available [facility] ([facility]) [address] [facility], [place], [address], 07/31/2022 10:10:02 07/30/20 22 07/31/2022 CBC WITH DIFFE RENTI AL/PL ATELE T monocytes(ab solute) 0.4 x10e3 /uL 0.1-0. 9 Not Available [facility] ([facility]) [address] [facility], [place], [address], 07/31/2022 10:10:02 07/30/20 22 07/31/2022 CBC WITH DIFFE RENTI AL/PL ATELE T eos (absolute) 0.2 x10e3 /uL 0.0-0. 4 Not Available [facility] ([facility]) [address] [facility], [place], [address], 07/31/2022 10:10:02 07/30/20 22 07/31/2022 CBC WITH DIFFE RENTI AL/PL ATELE T baso (absolute) 0.0 x10e3 /uL 0.0-0. 2 Not Available [facility] ([facility]) [address] [facility], [place], [address], 07/31/2022 10:10:02 07/30/20 22 07/31/2022 CBC WITH DIFFE RENTI AL/PL ATELE T immature granulocytes 0 % notest ab. Not Available [facility] ([facility]) [address] [facility], [place], [address], 07/31/2022 10:10:02 07/30/20 22 07/31/2022 CBC WITH DIFFE RENTI AL/PL ATELE T immature grans (abs) 0.0 x10e3 /uL 0.0-0. 1 Not Available [facility] ([facility]) [address] [facility], [place], [address], 07/31/2022 10:10:02 07/30/20 22 07/31/2022 PT AND PTT INR 0.9 0.9-1. 2 Refer ence inter fiordaliza is for non-a ntico agula eliu patie nts. Sugge sted INR thera peuti c range for Vitam in K antag onist thera py: Stand mahi Dose (mode rate inten sity thera peuti c range ): 2.0 - 3.0 Highe r inten sity thera peuti c range 2.5 - 3.5 Not Available [facility] ([facility]) [address] [facility], [place], [address], 07/31/2022 10:10:03 07/30/20 22 07/31/2022 PT AND PTT prothrombin time 10.0 sec 9.1-12 .0 Not Available [facility] ([facility]) [address] [facility], [place], [address], 07/31/2022 10:10:03 07/30/20 22 07/31/2022 PT AND PTT APTT 28 sec 24-33 This test has not been valid ated for monit oring unfra ction ated hepar in thera py. aPTT- based thera peuti c range s for unfra ction ated hepar in thera py have not been estab lishe d. For gener al guide lines on Hepar in monit oring , refer to the [facility] D[employer] tory of Servi joanna. Not Available [facility] ([facility]) [address] [facility], [place], [address], 07/31/2022 10:10:03 07/30/20 22 07/31/2022 COMP. METAB OLIC PANEL (14) glucose 107 mg/dL 65-99 above high normal Eff ectiv e Septe mber 26, 2022 Gluco se refer ence* * inter fiordaliza will be waterman ing to: 70 - 99 Not Available [facility] ([facility]) [address] [place], [address], 07/31/2022 10:10:00 07/30/20 22 07/31/2022 COMP. METAB OLIC PANEL (14) BUN 10 mg/dL 6-20 Not Available [facility] ([facility]) [address] [place], [address], 07/31/2022 10:10:00 07/30/20 22 07/31/2022 COMP. METAB OLIC PANEL (14) creatinine 0.68 mg/dL 0.57-1 .00 Not Available [facility] ([facility]) [address] [place], [address], 07/31/2022 10:10:00 07/30/20 22 07/31/2022 COMP. METAB OLIC PANEL (14) eGFR 123 mL/mi n/1.7 3 >59 Not Available [facility] ([facility]) [address] [place], [address], 07/31/2022 10:10:00 07/30/20 22 07/31/2022 COMP. METAB OLIC PANEL (14) BUN/creatini ne ratio 15 9-23 Not Available [facility] ([facility]) [address] [place], [address], 07/31/2022 10:10:00 07/30/20 22 07/31/2022 COMP. METAB OLIC PANEL (14) sodium 138 mmol/ L 134-14 4 Not Available [facility] ([facility]) [address] [place], [address], 07/31/2022 10:10:00 07/30/20 22 07/31/2022 COMP. METAB OLIC PANEL (14) potassium 4.0 mmol/ L 3.5-5. 2 Not Available [facility] ([facility] [address] [facility] [place], [address], 07/31/2022 10:10:00 07/30/20 22 07/31/2022 COMP. METAB OLIC PANEL (14) chloride 102 mmol/ L 96-106 Not Available [facility] ([facility]) [address] [place], [address], 07/31/2022 10:10:00 07/30/20 22 07/31/2022 COMP. METAB OLIC PANEL (14) carbon dioxide, total 21 mmol/ L 20-29 Not Available [facility] ([facility]) [address] [place], [address], 07/31/2022 10:10:00 07/30/20 22 07/31/2022 COMP. METAB OLIC PANEL (14) calcium 9.5 mg/dL 8.7-10 .2 Not Available [facility] ([facility]) [address] [place], [address], 07/31/2022 10:10:00 07/30/20 22 07/31/2022 COMP. METAB OLIC PANEL (14) protein, total 7.9 g/dL 6.0-8. 5 Not Available [facility] ([facility]) [address] [place], [address], 07/31/2022 10:10:00 07/30/20 22 07/31/2022 COMP. METAB OLIC PANEL (14) albumin 4.7 g/dL 3.9-5. 0 Not Available [facility] ([facility]) [address] [place], [address], 07/31/2022 10:10:00 07/30/20 22 07/31/2022 COMP. METAB OLIC PANEL (14) globulin, total 3.2 g/dL 1.5-4. 5 Not Available [facility] ([facility]) [address] [place], [address], 07/31/2022 10:10:00 07/30/20 22 07/31/2022 COMP. METAB OLIC PANEL (14) A/G ratio 1.5 1.2-2. 2 Not Available [facility] ([facility]) [address] [facility], [place], [address], 07/31/2022 10:10:00 07/30/20 22 07/31/2022 COMP. METAB OLIC PANEL (14) bilirubin, total 0.4 mg/dL 0.0-1. 2 Not Available [facility] ([facility]) [address] [place], [address], 07/31/2022 10:10:00 07/30/20 22 07/31/2022 COMP. METAB OLIC PANEL (14) alkaline phosphatase 88 IU/L 44-121 Not Available [facility]) [address] [place], [address], 07/31/2022 10:10:00 07/30/20 22 07/31/2022 COMP. METAB OLIC PANEL (14) AST (SGOT) 16 IU/L 0-40 Not Available [facility] ([facility]) [address] [place], [address], 07/31/2022 10:10:00 07/30/20 22 07/31/2022 COMP. METAB OLIC PANEL (14) ALT (SGPT) 6 IU/L 0-32 Not Available [facility] ([facility]) [address] [place], [address], 07/31/2022 10:10:00 10/15/20 22 10/15/2022 pregn blair test, urine HCG negati ve Not Available In-Office Order Internal Use Only DO Not Attach Compendium DO Not Attach Compendium, Do Not Delete/merge, [id number] 10/15/2022 09:21:22 04/09/20 24 04/10/2024 NUSWA B VAGIN ITIS PLUS (VG+) atopobium vaginae LOW - 0 score Not Available [facility] ([facility]) [address] [facility], [place], [address], 04/10/2024 20:09:03 04/09/20 24 04/10/2024 NUA B VAGIN ITIS PLUS (VG+) bvab 2 LOW - 0 score Not Available [facility] ([facility]) [address] [facility], [place], [address], 04/10/2024 20:09:03 04/09/20 24 04/10/2024 NUA B VAGIN ITIS PLUS (VG+) megasphaera 1 LOW - 0 score Calcu late total score by tara evans the 3 indiv idual bacte rial vagin osis (BV) marke r score s toget her. Total score is inter prete d as follo ws: Total score 0-1: Indic ates the absen ce of BV. Total score 2: Indet ermin ate for BV. Addit ional clini mario data shoul d be evalu ated to estab shae a diagn osis. Total score 3-6: Indic ates the prese nce of BV. Not Available [facility] ([facility]) [address] [facility], [place], [address], 04/10/2024 20:09:03 04/09/20 24 04/10/2024 NUA B VAGIN ITIS PLUS (VG+) reina albicans, SKY NEGATI VE negati ve Not Available [facility] ([facility]) [address] [facility], [place], [address], 04/10/2024 20:09:03 04/09/20 24 04/10/2024 NUA B VAGIN ITIS PLUS (VG+) reina glabrata, SKY NEGATI VE negati ve Not Available [facility] ([facility]) [address] [facility], [place], [address], 04/10/2024 20:09:03 04/09/20 24 04/10/2024 NUA B VAGIN ITIS PLUS (VG+) trich vag by SKY NEGATI VE negati ve Not Available [facility] ([facility]) [address] [place], [address], 04/10/2024 20:09:03 04/09/20 24 04/10/2024 NUSWA B VAGIN ITIS PLUS (VG+) chlamydia trachomatis, SKY NEGATI VE negati ve Not Available [facility] ([facility]) [address] [place], [address], 04/10/2024 20:09:03 04/09/20 24 04/10/2024 NUA B VAGIN ITIS PLUS (VG+) neisseria gonorrhoeae, SKY NEGATI VE negati ve Not Available [facility] ([facility]) [address] [place], [address], 04/10/2024 20:09:03 04/09/20 24 04/10/2024 TESTO STERO NE,FR EE AND TOTAL testosterone 30 NG/dL 13-71 Not Available [facility] ([facility]) [address] [place], [address], 04/16/2024 03:06:41 04/09/20 24 04/15/2024 TESTO STERO NE,FR EE AND TOTAL free testosterone (direct) 1.3 pg/mL 0.0-4. 2 Not Available [facility] ([facility]) [address] [place], [address], 04/16/2024 03:06:41 04/09/20 24 04/10/2024 TSH RFX ON ABNOR MAL TO FREE T4 TSH 1.680 uIU/m L 0.450- 4.500 Not Available [facility] ([facility]) [address] [place], [address], 04/16/2024 03:06:43 04/09/20 24 04/10/2024 HEMOG LOBIN A1C hemoglobin A1C 5.4 % 4.8-5. 6 Predi abete s: 5.7 - 6.4 Diabe kb: >6.4 Glyce dario contr ol for adult s with diabe kb: <7.0 Not Available [facility] ([facility]) [address] [place], [address], 04/16/2024 03:06:44 04/09/20 24 04/10/2024 PROLA CTIN prolactin 14.7 NG/mL 4.8-33 .4 Not Available [facility] ([facility]) [address] [facility], [place], [address], 04/16/2024 03:06:45 04/09/20 24 04/10/2024 ESTRA DIOL estradiol 34.6 pg/mL Adult Femal e Range Folli cular phase 12.5 - 166.0 Ovula tion phase 85.8 - 498.0 Lutea l phase 43.8 - 211.0 Postm enopa usal <6.0 - 54.7 Pregn blair 1st trime ster 215.0 - >4300 .0 George ECLIA metho dolog y Not Available [facility] ([facility]) [address] [place], [address], 04/16/2024 03:06:46 04/09/20 24 04/10/2024 CBC WITH DIFFE RENTI AL/PL ATELE T WBC 8.3 x10e3 /uL 3.4-10 .8 Not Available [facility] ([facility]) [address] [place], [address], 04/16/2024 03:06:47 04/09/20 24 04/10/2024 CBC WITH DIFFE RENTI AL/PL ATELE T RBC 4.25 x10e6 /uL 3.77-5 .28 Not Available [facility] ([facility]) [address] [place], [address], 04/16/2024 03:06:47 04/09/20 24 04/10/2024 CBC WITH DIFFE RENTI AL/PL ATELE T hemoglobin 12.0 g/dL 11.1-1 5.9 Not Available [facility] ([facility]) [address] [place], [address], 04/16/2024 03:06:47 04/09/20 24 04/10/2024 CBC WITH DIFFE RENTI AL/PL ATELE T hematocrit 37.7 % 34.0-4 6.6 Not Available [facility] ([facility]) [address] [facility], [place], [address], 04/16/2024 03:06:47 04/09/20 24 04/10/2024 CBC WITH DIFFE RENTI AL/PL ATELE T MCV 89 fL 79-97 Not Available [facility] ([facility]) [address] [place], [address], 04/16/2024 03:06:47 04/09/20 24 04/10/2024 CBC WITH DIFFE RENTI AL/PL ATELE T MCH 28.2 pg 26.6-3 3.0 Not Available [facility] ([facility]) [address] [place], [address], 04/16/2024 03:06:47 04/09/20 24 04/10/2024 CBC WITH DIFFE RENTI AL/PL ATELE T MCHC 31.8 g/dL 31.5-3 5.7 Not Available [facility] ([facility]) [address] [place], [address], 04/16/2024 03:06:47 04/09/20 24 04/10/2024 CBC WITH DIFFE RENTI AL/PL ATELE T RDW 12.2 % 11.7-1 5.4 Not Available [facility] ([facility]) [address] [place], [address], 04/16/2024 03:06:47 04/09/20 24 04/10/2024 CBC WITH DIFFE RENTI AL/PL ATELE T platelets 376 x10e3 /uL 150-45 0 Not Available [facility] ([facility]) [address] [facility], [place], [address], 04/16/2024 03:06:47 04/09/20 24 04/10/2024 CBC WITH DIFFE RENTI AL/PL ATELE T neutrophils 52 % notest ab. Not Available [facility] ([facility]) [address] [facility], [place], [address], 04/16/2024 03:06:47 04/09/20 24 04/10/2024 CBC WITH DIFFE RENTI AL/PL ATELE T lymphs 39 % notest ab. Not Available [facility] ([facility]) [address] [facility], [place], [address], 04/16/2024 03:06:47 04/09/20 24 04/10/2024 CBC WITH DIFFE RENTI AL/PL ATELE T monocytes 7 % notest ab. Not Available [facility] ([facility]) [address] [place], [address], 04/16/2024 03:06:47 04/09/20 24 04/10/2024 CBC WITH DIFFE RENTI AL/PL ATELE T eos 1 % notest ab. Not Available [facility] ([facility]) [address] [facility], [place], [address], 04/16/2024 03:06:47 04/09/20 24 04/10/2024 CBC WITH DIFFE RENTI AL/PL ATELE T basos 1 % notest ab. Not Available [facility] ([facility]) [address] [facility], [place], [address], 04/16/2024 03:06:47 04/09/20 24 04/10/2024 CBC WITH DIFFE RENTI AL/PL ATELE T neutrophils (absolute) 4.4 x10e3 /uL 1.4-7. 0 Not Available [facility] ([facility]) [address] [facility], [place], [address], 04/16/2024 03:06:47 04/09/20 24 04/10/2024 CBC WITH DIFFE RENTI AL/PL ATELE T lymphs (absolute) 3.3 x10e3 /uL 0.7-3. 1 above high normal Not Available [facility] ([facility]) [address] [facility], [place], [address], 04/16/2024 03:06:47 04/09/20 24 04/10/2024 CBC WITH DIFFE RENTI AL/PL ATELE T monocytes(ab solute) 0.5 x10e3 /uL 0.1-0. 9 Not Available [facility] ([facility]) [address] [facility], [place], [address], 04/16/2024 03:06:47 04/09/20 24 04/10/2024 CBC WITH DIFFE RENTI AL/PL ATELE T eos (absolute) 0.1 x10e3 /uL 0.0-0. 4 Not Available [facility] ([facility]) [address] [facility], [place], [address], 04/16/2024 03:06:47 04/09/20 24 04/10/2024 CBC WITH DIFFE RENTI AL/PL ATELE T baso (absolute) 0.0 x10e3 /uL 0.0-0. 2 Not Available [facility] ([facility]) [address] [facility], [place], [address], 04/16/2024 03:06:47 04/09/20 24 04/10/2024 CBC WITH DIFFE RENTI AL/PL ATELE T immature granulocytes 0 % notest ab. Not Available [facility] ([facility]) [address] [facility], [place], [address], 04/16/2024 03:06:47 04/09/20 24 04/10/2024 CBC WITH DIFFE RENTI AL/PL ATELE T immature grans (abs) 0.0 x10e3 /uL 0.0-0. 1 Not Available [facility] ([facility]) [address] [place], [address], 04/16/2024 03:06:47 04/09/20 24 04/10/2024 FSH AND LH LH 13.8 mIU/m L Adult Femal e Range Folli cular phase 2.4 - 12.6 Ovula tion phase 14.0 - 95.6 Lutea l phase 1.0 - 11.4 Postm enopa usal 7.7 - 58.5 Not Available [facility] ([facility]) [address] [facility], [place], [address], 04/16/2024 03:06:49 04/09/20 24 04/10/2024 FSH AND LH FSH 9.4 mIU/m L Adult Femal e Range Folli cular phase 3.5 - 12.5 Ovula tion phase 4.7 - 21.5 Lutea l phase 1.7 - 7.7 Postm enopa usal 25.8 - 134.8 Not Available [facility] ([facility]) [address] [facility], [place], [address], 04/16/2024 03:06:49 04/09/20 24 04/09/2024 urina lysis , dipst ick Leukocytes Negati ve Not Available In-Office Order Internal Use Only DO Not Attach Compendium DO Not Attach Compendium, Do Not Delete/merge, [id number] 04/09/2024 17:12:42 04/09/20 24 04/09/2024 urina lysis , dipst ick Nitrite negati ve Not Available In-Office Order Internal Use Only DO Not Attach Compendium DO Not Attach Compendium, Do Not Delete/merge, [id number] 04/09/2024 17:12:42 04/09/20 24 04/09/2024 urina lysis , dipst ick Urobilinogen .2 Not Available In-Of fice Order Internal Use Only DO Not Attach Compendium DO Not Attach Compendium, Do Not Delete/merge, 04/09/2024 17:12:42 04/09/20 24 04/09/2024 urina lysis , dipst ick Protein Negati ve Not Available In-Office Order Internal Use Only DO Not Attach Compendium DO Not Attach Compendium, Do Not Delete/merge, 04/09/2024 17:12:42 04/09/20 24 04/09/2024 urina lysis , dipst ick pH 7.5 Not Available In-Office Order Internal Use Only DO Not Attach Compendium DO Not Attach Compendium, Do Not Delete/merge, 04/09/2024 17:12:42 04/09/20 24 04/09/2024 urina lysis , dipst ick Blood Small Not Available In-Office Order Internal Use Only DO Not Attach Compendium DO Not Attach Compendium, Do Not Delete/merge, 04/09/2024 17:12:42 04/09/20 24 04/09/2024 urina lysis , dipst ick Specific [facility] 1.020 Not Available In-Off ice Order Internal Use Only DO Not Attach Compendium DO Not Attach Compendium, Do Not Delete/merge, 04/09/2024 17:12:42 04/09/20 24 04/09/2024 urina lysis , dipst ick Ketone Negati ve Not Available In-Office Order Internal Use Only DO Not Attach Compendium DO Not Attach Compendium, Do Not Delete/merge, 04/09/2024 17:12:42 04/09/20 24 04/09/2024 urina lysis , dipst ick Bilirubin Negati ve Not Available In-Office Order Internal Use Only DO Not Attach Compendium DO Not Attach Compendium, Do Not Delete/merge, 04/09/2024 17:12:42 04/09/20 24 04/09/2024 urina lysis , dipst ick Glucose Negati ve Not Available In-Office Order Internal Use Only DO Not Attach Compendium DO Not Attach Compendium, Do Not Delete/merge, 04/09/2024 17:12:42 04/09/20 24 04/09/2024 pregn blair test, urine HCG negati ve Not Available In-Office Order Internal Use Only DO Not Attach Compendium DO Not Attach Compendium, Do Not Delete/merge, [id number] 04/09/2024 15:16:50 04/18/2004/19/2025 HCG QL W/REF RABIA TO HCG QN HCG,beta subunit,qual POSITI VE mIU/m L negati ve<6 abnormal Not Available [facility] ([facility]) [address] [facility], [place], [address], 04/19/2025 08:26:38 04/18/20 25 04/19/2025 HCG,B ETA SUBUN IT,QN T,SER UM HCG,beta subunit,qnt, serum 17 mIU/m L Femal e (Non- pregn ant) 0 - 5 (Post menop ausal ) 0 - 8 Femal e (Preg nant) Weeks of Gesta tion 3 6 - 71 4 10 - 750 5 328 - 2283 6 886 - 48929 7 1227 -1850 63 8 32613 -0604 71 9 74140 -7789 10 10 72783 -1865 77 12 80365 -3232 12 14 79346 - 48146 15 55515 - 68704 16 8216 - 33750 17 0655 - 17173 18 3008 - 33516 George ECLIA metho dolog y Not Available [facility] ([facility]) [address] [facility], [place], [address], 04/19/2025 08:26:40 04/18/20 25 04/18/2025 HbA1c (hemo globi n A1c), blood HbA1C 5.1 % Not Available In-Office Order Internal Use Only DO Not Attach Compendium DO Not Attach Compendium, Do Not Delete/merge, [id number] 04/18/2025 10:54:57 04/18/20 25 04/18/2025 pregn blair test, urine HCG negati ve Not Available In-Office Order Internal Use Only DO Not Attach Compendium DO Not Attach Compendium, Do Not Delete/merge, [id number] 04/18/2025 10:25:49 10/28/20 23 10/27/2023 CT, abdom en + pelvi s, w/ contr ast No observ ation record ed. [facility] [address], [place], [address], 04/18/2025 10:34:45 Result Notes None recorded. Problems Name Problem SNOMED Code Status Onset Date Resolution Date Notes Provider Name and Address Organization Details Recorded Time Family history of breast cancer 710669835 Active 2017 KAREN CHAVEZ DO Attn: Jeanne evans,[address] [facility], [place], [address], [place] [facility] 4 15:04:29 Ruptured cyst of ovary 25686617 Completed 201904/10/2024 CT in the ER on 0 showed likely ruptured R ovarian cyst w/ small amount of hemorrha ge KAREN CHAVEZ DO Attn: Maria Eugeniascottie evans,[address] [facility], [place], [address], [place] [facility] 4 15:04:27 Pregnanc y 49823042 Completed 201905/04/2021 Abril Harper [place] null, [place] [facility] 1 13:00:12 Group B Streptoc occus carrier [id number] 03 Completed 201904/10/2024 KAREN CHAVEZ DO Attn: Maria Eugeniascottie evans,[address] [facility], [place], [address] [facility] 4 15:04:26 Group B Streptoc occus carrier [id number] 03 Completed 2019 Hayley Katz MD Attn: Accountin cristina,[address] [facility], [place], [address] [facility] 1 09:12:23 Chlamydi a trachoma tis infectio n in pregnanc y 05513901084 01 Completed 2019 Hayley Katz MD Attn: Accountin cristina,[address] [facility], [place], [address], [place] [facility] 1 09:12:23 Chlamydi a trachoma tis infectio n in pregnanc y 77974463856 Completed 201904/10/2024 KAREN CHAVEZ DO Attn: Jeanne evans,[address] [facility], [place], [address], [place] [facility] 4 15:04:26 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 [id number] 9102 Completed 2019 Hayley Katz MD Attn: Jeanne evans,[address] [facility], [place], [address], [place] [facility] 1 09:12:23 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 [id number] 9101 Completed 201904/10/2024 KAREN CHAVEZ DO Attn: Jeanne evans,[address] [facility], [place], [address], [place] [facility] 4 15:04:26 growth restrict ion 61515747 Completed 2020 Hayley Katz MD Attn: Jeanne evans,[address] [facility], [place], [address] [facility] 1 09:12:23 growth restrict ion 56892906 Completed 202004/10/2024 KAREN CHAVEZ DO Attn: Jeanne evans,[address] [facility], [place], [address] [facility] 4 15:04:26 Delivery by emergenc y section 476018645 Completed 202004/10/2024 KAREN CHAVEZ DO Attn: Jeanne evans,[address] [facility], [place], [address], [place] [facility] 4 15:04:26 Past pregnanc y history of hemolysi s-elevat 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 957724015 Active 2020 KAREN CHAVEZ DO Attn: Maria Eugeniascottie evans,[address] [facility], [place], [address], [place] [facility] 4 15:04:37 Irregula r intermen strual bleeding 02287112 Active 2023 KAREN CHAVEZ DO Attn: Jeanne evans,[address] [facility], [place], [address], [place] [facility] 4 15:04:44 Trying to conceive 470838415 Active 2023 KAREN CHAVEZ DO Attn: Jeanne evans,[address] [facility], [place], [address], [place] [facility] 4 15:04:42 Chronic gastriti s 1530587 Active 2022 MORGAN HensleyBG Attn: Jeanne evans,[address] [facility], [place], [address], [place] [facility] 5 10:38:31 Body mass index 25-29 - overweig ht 446782659 Active 2024 [facility] Attn: Jeanne evans,[address] [facility], [place], [address], [place] [facility] 5 10:40:51 Not enrolled in health insuranc e plan Active 2024 TRANG Hensley Attn: Jeanne evans,[address] [facility], [place], [address], [place] [facility] 5 11:01:25 Family history of malignan t neoplasm of breast in first degree relative 955909935 Active 2024 CASANDRA Hensley Attn: Jeanne evans,[address] [facility], [place], [address], [place] [facility] 5 11:03:23 Polycyst ic ovary syndrome 641264216 Active 2024 CASANDRA Hensley Attn: Jeanne evans,[address] [facility], [place], [address], [place] [facility] 5 11:13:37 Constipa tion 31389068 Completed 04/10/2024 KAREN CHAVEZ DO Attn: Jeanne evans,[address] [facility], [place], [address] [facility] 4 15:04:26 Chest pain 81798186 Completed 04/10/2024 KAREN CHAVEZ DO Attn: Jeanne evans,[address] [facility], [place], [address], [place] [facility] 4 15:04:26 Unexplai jose weight loss 253783273 Completed 04/10/2024 KAREN CHAVEZ DO Attn: Jeanne evans,[address] [facility], [place], [address], [place] [facility] 4 15:04:26 Problem Notes None recorded. Procedures Surgical History Date Name Laterality Status Provider Name and Address Organization Details Recorded Time 5 Date of Last Pap Smear completed Iris Rock RN [facility] 04/18/2025 10:21:59 1 Depo Injection completed Conor Chamorro [facility] 06/09/2021 13:07:31 1 Suture/Staple removal completed Conor Chamorro [facility] 05/02/2021 10:49:20 Caesarean Section completed Abril Harper MA [facility] 07/30/2022 14:40:56 Imaging Results None recorded. Procedure Notes None recorded. Medical Equipment None Reported. Allergies Allergen ID Allergen Name Allergen Category Reaction Reaction Severity Criticality Documentation Date Start Date Code Code System Note Provider Name and Address Organization Details Recorded Time 001841 codeine medicatio n itching Not available Not available 04/18/20252018 2670 RxDREW Chaney, [facility] 5 10:23:01 30107 morphine medicatio n dyspnea Not available high 03/23/20162018 7052 RxDREW Chaney, [facility] 5 10:23:11 Medications Name Sig Start Date Stop Date Status Note LastModified by Organization Details LastModified Time Singulair 10 mg tablet Take 1 tablet every day by oral route for 30 days. active Not Available Not Available No t Available multivitami n tablet Take 1 tablet every day by oral route. 02/19 completed Not Available Not Available Not Available metformin 500 mg tablet Take 1 tablet twice a day by oral route. 2024 active Not Available Not Available Not Avai lable cetirizine 10 mg tablet Take 1 tablet every day by oral route. 02/19 completed Not Available Not Available Not Available fluconazole 150 mg tablet Take 1 tablet every day by oral route for 1 day. 04/24 completed Not Available Not Available Not Available hydrocodone 5 mg-acetamin ophen 325 mg tablet 02/19 completed Not Available Not Available Not Available Sofie Low Dose Aspirin 81 mg tablet,shaun yed release Take 1 tablet every day by oral route. 05/12 completed Not Available Not Available Not Available metronidazo le 500 mg tablet TAKE 1 TABLET BY MOUTH TWICE DAILY FOR 7 DAYS 09/24 completed Not Available Not Available Not Available nifedipine ER 30 mg tablet,exte nded release Take 1 tablet every day by oral route. 05/12 completed Not Available Not Available Not Available ciprofloxac in 500 mg tablet TAKE 1 TABLET BY MOUTH TWICE DAILY FOR 7 DAYS 09/24 completed Not Available Not Available Not Available Macrobid 100 mg capsule Take 1 capsule every 12 hours by oral route for 5 days. 07/30 completed Not Available Not Available Not Available Vitamin tablet Take 1 tablet every day by oral route as directed for 90 days. 02/19 completed Not Available Not Available Not Available cyanocobala min (vit B-12) 1,000 mcg/mL injection solution Inject 1 mL every month by subcutane ous route. 05/12 completed Not Available Not Available Not Available fluoxetine 20 mg tablet Take 1 tablet every day by oral route in the morning for 30 days. 09/23/ 2022 12/09 /2022 completed Not Available Not Available Not Available progesteron e micronized 200 mg capsule Take 1 capsule every day by oral route. 05/12 completed Not Available Not Available Not Available omeprazole 20 mg capsule,del ayed release TAKE 1 CAPSULE BY MOUTH ONCE DAILY FOR 14 DAYS 09/24 completed Not Available Not Available Not Available folic acid 1 mg tablet Take 2 tablets twice a day by oral route as directed. 05/12 completed Not Available Not Available Not Available scopolamine 1 mg over 3 days transdermal patch Apply 1 patch to back of ear, replace every 3 days as needed 09/30 completed Not Available Not Available Not Available ondansetron 4 mg disintegrat ing tablet DISSOLVE 1 TABLET IN MOUTH EVERY 8 HOURS NEEDED FOR NAUSEA AND VOMITING 04/09 completed Not Available Not Available Not Available fluoxetine 20 mg capsule TAKE ONE TABLET BY MOUTH EVERY MORNING 10/15 completed Not Available Not Available Not Available fluticasone propionate 50 mcg/actuati on nasal spray,suspe nsion [place] 1 spray every day by intranasa l route. 02/19 completed Not Available Not Available Not Available medroxyprog esterone 150 mg/mL intramuscul ar suspension INJECT 1 ML EVERY 3 MONTHS BY INTRAMUSC ULAR ROUTE. 07/30 completed Not Available Not Available Not Available loratadine 10 mg tablet TAKE ONE TABLET BY MOUTH EVERY DAY 04/09 completed Not Available Not Available Not Available metoclopram prince 10 mg tablet Take 1 tablet every 6 hours by oral route as needed. 05/12 completed Not Available Not Available Not Available amoxicillin 875 mg-potassiu m clavulanate 125 mg tablet TAKE 1 TABLET BY MOUTH EVERY 12 HOURS FOR 7 DAYS 04/09 completed Not Available Not Available Not Available azithromyci n 500 mg tablet TAKE 2 TABLETS SINGLE DOSE 10/15 completed Not Available Not Available Not Available ferrous gluconate 325 mg (36 mg iron) tablet Take 1 tablet every day by oral route. 05/25 completed Not Available Not Available Not Available Calcium with Vitamin D 600 mg-10 mcg (400 unit) tablet Take 1 tablet twice a day by oral route. 07/30 completed Not Available Not Available Not Available Nexplanon 68 mg subdermal implant Inject 1 implant by subcutane ous route. 2020 active Not Available Not Available Not Avai lable Classic 28 mg iron-800 mcg tablet TAKE 1 TABLET BY MOUTH ONCE DAILY DIRECTED 02/19 completed Not Available Not Available Not Available Tab-A-Abhishek 400 mcg tablet 02/19 completed Not Available Not Available Not Available Vitals Date Recorded Body height Body mass index (BMI) Body weight Respiratory rate Oxygen saturation Oxygen saturation in Arterial blood by Pulse oximetry Heart rate Systolic blood pressure Diastolic blood pressure Provider Name and Address Organization Details Last Updated DateTime 4 156.21 cm 25 kg/m2 09080.5 3 g 18 /min 100 % 100 % 67 /min 108 mm[Hg] 72 mm[Hg] Lia Zaidi MA [facility] 4 14:51:01 Date Recorded Body height Body mass index (BMI) Body weight Oxygen saturation Oxygen saturation in Arterial blood by Pulse oximetry Heart rate Body temperature Systolic blood pressure Diastolic blood pressure Provider Name and Address Organization Details Last Updated DateTime 5 154.94 cm 26.7 kg/m2 99209.3 2 g 100 % 100 % 84 /min 97.9 [degF] 102 mm[Hg] 62 mm[Hg] Iris Rock RN [facility] 5 10:26:50 Date Recorded Body height Body mass index (BMI) Body weight Systolic blood pressure Diastolic blood pressure Provider Name and Address Organization Details Last Updated DateTime 06/09/2023 156.21 cm 23.6 kg/m2 66594.23 g 104 mm[Hg] 62 mm[Hg] Barbara Post MA [facility] 3 15:26:02 Date Recorded Body height Body mass index (BMI) Body weight Heart rate Body temperature Oxygen saturation Oxygen saturation in Arterial blood by Pulse oximetry Systolic blood pressure Diastolic blood pressure Provider Name and Address Organization Details Last Updated DateTime 2 156.21 cm 23.5 kg/m2 07348.4 4 g 75 /min 98.9 [degF] 99 % 99 % 116 mm[Hg] 74 mm[Hg] Abril Harper MA [facility] 2 14:39:19 Date Recorded Body height Body mass index (BMI) Body weight Systolic blood pressure Diastolic blood pressure Provider Name and Address Organization Details Last Updated DateTime 10/15/2022 156.21 cm 24 kg/m2 44059.42 g 92 mm[Hg] 58 mm[Hg] Mihaela Forman MA [facility] 2 09:33:37 Social History Question Answer Notes LastModified by Organizat ion Details LastModified Time Tobacco Smoking Status Never Smoker CLARITZA Ball, [facility] 04/01/2015 12:25:27 Do You Have An Advance Directive? No Information n ot available 05/25/2017 Are You Blind Or Do You Have Difficulty Seeing? No Information n ot available 04/18/2025 What Is Your Level Of Caffeine Consumption? None Information not available 09/24/2020 How Much Tobacco Do You Chew? None [email or web address] Information not available 04/01/2015 In The 14 Days Before Symptom Onset, Have You Had Close Contact With A Laboratory-confirm ed COVID-19 While That Case Was Ill? No Information n ot available 07/30/2022 In The 14 Days Before Symptom Onset, Have You Had Close Contact With A Person Who Is Under Investigation For COVID-19 While That Person Was Ill? No Information not available 07/30/2022 Have You Been To An Area Known To Be High Risk For COVID-19? No Information not available 07/30/2022 Are You Deaf Or Do You Have Serious Difficulty Hearing? No Information not available 04/18/2025 What Type Of Diet Are You Following? REGULAR [email or web address] Information n ot available 04/01/2015 Which Illicit Or Recreational Drugs Have You Used? None Information not available 09/24/2020 Education 12 [email or web address] Information no t available 04/01/2015 Are There Any Guns Present In Your Home? No Information not available 04/01/2015 Hard Of Hearing Or Deaf In One Or Both Ears? No [email or web address] Information not available 04/01/2015 Legally Blind In One Or Both Eyes? No [email or web address] Information no t available 04/01/2015 Marital Status Single [email or web address] Informatio n not available 04/01/2015 What Was The Date Of Your Most Recent Tobacco Screening? 04/18/2025 Information not available 04/18/2025 How Many Children Do You Have? 1 Information not available 06/09/2021 Performs Monthly Self-breast Exam? No Information no t available 05/25/2017 What Is Your Relationship Status? Single Information not available 04/18/2025 Do You Use Your Seat Belt Or Car Seat Routinely? Yes Information not available 04/18/2025 Seat Belts Used Routinely Yes Information not available 04/01/2015 Are You Sexually Active? Yes Information not available 01/07/2021 Smoke Alarm In Home Yes [email or web address] Information not available 04/01/2015 Do You Have Smoke And Carbon Monoxide Detectors In Your Home? Yes Information not available 01/07/2021 Are You Passively Exposed To Smoke? No [email or web address] Information no t available 03/25/2021 How Much Tobacco Do You Smoke? No [email or web address] Information not available 04/01/2015 General Stress Level Medium [email or web address] Information not available 04/01/2015 Do You Use Sunscreen Routinely? No Information not available 05/25/2017 Has Tobacco Cessation Counseling Been Provided? Yes Information not available 06/09/2023 On What Date Was Tobacco Cessation Counseling Provided? 04/18/2025 Information not available 04/18/2025 Sex: Female Functional Status Question Answer Note LastModified by Organizat ion Details LastModified Time Do you use any illicit or recreational drugs? No Information not available 01/07/2021 Do you or have you ever used any other forms of tobacco or nicotine? No Information not available 01/07/2021 What is your level of alcohol consumption? Occasional Information not available 07/30/2022 Are you currently employed? No Information not available 01/07/2021 Are you able to care for yourself? Yes Information n ot available 04/18/2025 What is your occupation? Unemployed Information not available 09/24/2020 What is your exercise level? None [email or web address] Information not available 04/01/2015 Mental Status None recorded. Family History Relationship Description Onset Age of this Age Resolved Age Notes LastModified by Organization Details LastModified Time Mother Hypertensive disorder 54 [email or web address] Not available 2024 10:58:04 Mother Malignant tumor of breast 46 just got diagno sed Not available 03/23/2016 11:37:37 Mother Kidney disease 54 [email or web address] Not available 2024 10:57:37 Mother Sepsis 54 54 [email or web address] Not available 10/2025 10:57:57 Maternal Grandmother Diabetes mellitus [email or web address] Not available 2024 10:24:42 Maternal Aunt Diabetes mellitus [email or web address] Not available 2024 10:24:42 Maternal Uncle Diabetes mellitus [email or web address] Not available 2024 10:55:23 Medical History Condition Response Other Y Anemia Y Gynecological History Statement/Question Response Flow Moderate Date of LMP 03/06/2025 On BCP's at Conception? N STIs/STDs N Duration of Flow (days) 8 Age at Menarche 12 Current Control Method None Frequency of Cycle (Q days) Menses Monthly N Date of Last Pap Smear 11/07/2024 LMP Definite Desired Control Method None Obstetrics History GPAL:G 1 P 1 0 0 1 Type Value Multiple Births 0 Full Term 1 Induced 0 Spontaneous 0 Premature 0 Living 1 Ectopics 0 Total 1 Immunizations Vaccine Type Date Status Note Provider Nam e and Address Organization Details Recorded Time Tdap 3 completed CLARITZA Ball [place], [place] [facility] 03/28/2015 13:48:07 Influenza, split virus, quadrivalent, preservative 8 completed Not Available [facility] 11/24/2019 02:35:19 HPV9 8 completed Not Available [facility] 11/24/2019 02:35:18 meningococcal MCV4P 8 completed Not Available [facility] 11/24/2019 02:43:41 HPV9 8 completed Not Available [facility] 11/24/2019 02:35:25 Influenza, split virus, quadrivalent, preservative 0 completed Mihaela Forman [place] [facility] 09/24/2020 13:19:11 Tdap 1 completed Mihaela Form[place] [facility] 03/25/2021 11:26:26 HPV9 1 completed Barabra Post [place] [facility] 06/09/2021 13:36:08 Influenza, split virus, quadrivalent, preservative 2 completed Mihaela Form[place] [facility] 10/15/2022 11:01:48 MMR 0 completed Cheyanne Greenwood PA-C Attn: Accounting,[address] [facility], [place], [address], [place] [facility] 01/12/2018 14:21:24 MMR 3 completed Cheyanne Greenwood PA-C Attn: Accounting,[address] [place], [address], [place] [facility] 01/12/2018 14:21:28 Hep B, unspecified formulation 0 completed Cheyanne Greenwood PA-C Attn: Accounting,[address] [place], [place], [address] [place] [address], [place] [facility] 01/12/2018 14:21:42 Hep B, unspecified formulation 0 completed Cheyanne Greenwood PA-C Attn: Accounting,[address] [place], [address], [place] [facility] 01/12/2018 14:21:46 Hep B, unspecified formulation 1 completed Cheyanne Greenwood PA-C Attn: Accounting,[address] [place], [address], [place] [facility] 01/12/2018 14:21:52 Hep A, pediatric, unspecified formulation 2 completed Cheyanne Greenwood PA-C Attn: Accounting,[address] [place], [address], [place] [facility] 01/12/2018 14:22:02 Hep A, pediatric, unspecified formulation 6 completed Cheyanne Greenwood PA-C Attn: Accounting,[address], [place], [address], [facility] 01/12/2018 14:22:07 varicella 0 completed Cheyanne Greenwood PA-C Attn: Accounting,[address], [place], [address], [facility] 01/12/2018 14:22:31 varicella 2 completed Cheyanne Greenwood PA-C Attn: Accounting,[address], [place], [address], [facility] 01/12/2018 14:22:35 Past Encounters Encounter ID Performer Location Encounter Start Date Encounter Closed Date Diagnosis/Indication Diagnosis SNOMED-CT Code Diagnosis ICD10 Code Diagnosis Note [id number] Lele Martin MD [facility] [address] [place] [phone] 4 04/01/2015 12:10:42 04/04/2015 15:38:42 History of anemia 032368616 Constipation 22870162 in crease water fiber every day Chest pain 57237789 As p atient reports getting CXR/EKG done at E/R will review and not order these for now advised chest pain may be related to anxiety symptoms secondary to mother's new breast cancer diagnosis apply warm compress to chest wall prn Unexplaine d weight loss 029065188 per patient 22 pound weight loss in 2 months [id number] Margo Montano MD [facility] (Adult Med) [address] [place] [address] 03/23/2016 11:18:00 03/23/2016 17:54:30 Family history of breast cancer 011240323 Z80.3 Upon further review, patient was already referred to [facility] 03/[address] Gann (mother's oncologist ) d/t the type of breast cancer that her mother, Shannon Pina, was dx'ed with Patient was advised concerning her referral that already existed and advised to contact [facility] Sierra's office for her appointmen t History of anemia 413990 002 Z86.2 [id number] ParvinMD Daniel Ceja (Adult Med) [address] [place] [phone] 01/12/2018 13:37:42 01/12/2018 15:05:14 Active or passive immunization 777661161 Z23 RTC 1-2 months for Gardasil #2 and 6 months for Gardsil #3 Tuberculos is screening 783539137 Z11.1 d/t BCG vaccine, cannot do PPD - will check blood Venereal d isease screening 414178697 Z11.3 History an d physical examination, pre-employment 440983947 Z02.1 physical form completed and once lab results are received concerning TB will give form [id number] JULIUS Rogers (Adult Med) [address] [place] [address] 0 04/25/2018 10:30:11 04/26/2018 09:06:52 Gynecologic examination 04657649 Z01.419 Active or passive immunization 852159575 Z23 RTC 4 months for Gardasil #3 (appointme nt schedule) Family his tory of breast cancer 791664185 Z80.3 Has been referred to [facility] in the past for evaluation (03/2015) by Dr. Gann (mother's oncologist ) d/t the type of breast cancer that her mother, Shannon Pina, was dx'ed with [id number] KAROL RUGGIERO (Adult Med) [address] [place] [address] 12/28/2019 11:52:42 12/31/2019 08:18:26 Ruptured cyst of ovary 74252944 N83.209 She developed diffuse pelvic pain about 2 weeks ago, then on 12/24/2019 she developed sharp R severe pelvic pain.She went to [facility] ER on 12/25/2019, a CT of abdomen and pelvis showed likely a R ovarian cyst rupture with small amount of hemorrhagi c fluid present. She was discharged home with pain medication and ibuprofen. Today, states her pain has not improved, almost feels like it is worse than before. Does not feel like pain medication is helping.Ad mits to headaches and lightheade dness.On PE: suprapubic and RLQ TTP (moderate) . Vitals overall normal.- will check CBC- will order US of pelvis, [facility] had opening at 1 pm, encouraged patient to go there next- take medication s as directed, apply heat to the affected area- if symptoms get worse or she develops severe lightheade dness, she is to return to ER- provided her with work note for the rest of today so she can get additional imaging completed [id number] KAROL RUGGIERO (Adult Med) [address] [place] [address] 03/27/2020 09:19:59 03/27/2020 09:39:32 [id number] KAROL LIMA (PHOTOGRAPHIC EQUIPMENT MECHANIC) [address] [place] [address]77-152 0 09/24/2020 09:38:19 09/29/2020 10:58:45 Routine care 746018163 Z34.01 Patient is a primigravi da female presenting for NOB at 7w0d. LMP 08/06/20. 2+ home tests. She endorses nausea x 2 days. She went to [place] ER for spotting and malodorous discharge that she had for 1 day. She was tested for STDs and treated with abx prophylact ically. The spotting has resolved. Denies vomiting and cramping. US in ED with viable IUP.-ACOG paperwork reviewed and provided to patient-NO B labs drawn-1st trimester US order given, advised to schedule in 3-4 weeks-RTC in 1 month Venereal d isease screening 321131471 Z11.3 screening 2437 96785 Z36.85 Threatened miscarriage 05043886 O20.0 -Visit to ER for spotting, which has resolved. Reassuring US with viable IUP. Continue to monitor.-S tart progestero ne as prescribed .-F/u US in 3-4 weeks. Morning sickness 8760446 6 O21.9 -Reports nausea-Jelena ly scopolamin e patch to help with symptoms-T gang miner avoidance and small snacks every 1-2 hours Administra tion of influenza vaccine 89609468 Z23 [id number] KAROL LIMA (PHOTOGRAPHIC EQUIPMENT MECHANIC) [address] [place] [address]09[address] 10/15/2020 09:32:53 10/16/2020 07:38:11 Routine care 365997850 Z34.01 25yo primigravi da female presenting for VIDAL at 9w3d. c/b chlamydia, MTHFR, and GBS. She has no concerns today. She states nausea and vomiting have improved. US 10/10 with [facility] 05/17/2021. RTC in 4 weeks. Heterozygo us methylenetetrahydrofo late reductase mutation [id number] 02155 E72.12 heterozygo us for the MTHFR C677T variant. Continue progestero ne, ASA, and folic acid. B12 given today. Chlamydia trachomatis infection in 9066098069 101 O23.91 Positive at initial OB. She has completed treatment for chlamydia, partner getting tested today. Asymptomat ic. Retest today. Abstinence until negative testing. Safe sex discussed. [id number] KAROL LIMA (PHOTOGRAPHIC EQUIPMENT MECHANIC) [address] [place] [address]443[address] 0 12/10/2020 11:38:52 12/18/2020 20:56:45 Routine care 900781945 Z34.92 25yo primigravi da female presenting for VIDAL at 17w3d. c/b chlamydia, MTHFR, and GBS. Mild headaches relieved with Tylenol and nosebleeds . Advised Vaseline on nasal septum every night before bed. B12 administer ed today. AFP drawn. Ordered US today. RTC in 4 weeks. Heterozygo us methylenetetrahydrofo late reductase mutation [id number] 89960 E72.12 heterozygo for the MTHFR C677T variant. Continue progestero ne, ASA, and folic acid. B12 given today. screening 2437 35506 Z36.0 Will draw AFP tetra today. Patient does not want know gender of baby. [id number] KAROL LIMA (PHOTOGRAPHIC EQUIPMENT MECHANIC) [address] [place] [address]303[address]707 0 01/07/2021 10:18:33 01/14/2021 08:53:10 Routine care 502063574 Z34.92 25 yo primigravi da female presenting for VIDAL at 21w3d. c/b chlamydia, MTHFR, and GBS. US done on 12/29 showed normal anatomy survey, EFW 51% and fetus in breech presentati on. B12 administer ed. RTC in 4 weeks for GCT, informatio nal handout provided. Heterozygo us methylenetetrahydrofo late reductase mutation [id number] 72946 E72.12 heterozygo us for the MTHFR C677T variant. Continue progestero ne, ASA, and folic acid. B12 injection given today. History of sexually transmitted disease 937597125 Z86.19 H/o positive chlamydia 09/24/20. Will retest today. [id number] KAROL LIMA (PHOTOGRAPHIC EQUIPMENT MECHANIC) [address] [place] [address]102[address]426 0 02/04/2021 08:56:24 02/05/2021 13:42:42 Routine care 550559641 Z34.92 25 yo primigravi da female presenting for VIDLA at 25w3d. c/b chlamydia, MTHFR, and GBS. B12 administer ed. GCT completed today. Educated patient on Kick counts, WTC, ER precaution s. Order for 3rd trimester US provided. RTC in 2 weeks. Heterozygo us methylenetetrahydrofo late reductase mutation [id number] 09662 E72.12 heterozygo us for the MTHFR C677T variant. Continue progestero ne, ASA, and folic acid. B12 injection given today. screening 2437 59945 Z36.9 Venereal d isease screening 566934547 Z11.3 [id number] [facility]PHOTOGRAPHIC EQUIPMENT MECHANIC) [address] [place] [address] 97067-744 0 03/04/2021 09:44:40 03/09/2021 07:22:28 Routine care 546223627 Z34.92 VIDAL at 29w3d. US on 03/03/2021 showed biometry consistent with growth restrictio n, EFW < 3%, CAROLINE WNL. See below. Office out of Tdap, plan to administer at next visit. RTC in 2 weeks. Heterozygo us methylenetetrahydrofo late reductase mutation [id number] 82675 E72.12 Heterozygo us for the MTHFR C677T variant. Continue progestero ne, ASA, and folic acid. B12 injection administer ed today. grow th restriction 20467276 O35.8XX9 US on 03/03/2021 showed biometry consistent with growth restrictio n, EFW < 3%, CAROLINE WNL. Reassuring biophysica l profile, no abnormalit ies were detected on detailed anatomic survey. Continue to follow with MFM for CMV serology studies, daily kick counts, and weekly 10-point BPP while awaiting repeat growth assessment in ~3 weeks. Allergic rhinitis 732690 04 J30.9 Complains of seasonal allergies with congestion and rhinorrhea . She has taken Robitussin without improvemen t of symptoms. Prescribed Flonase and cetirizine . [id number] [facility]OL LIMA [facility] (PHOTOGRAPHIC EQUIPMENT MECHANIC) [address] [place] [address] [phone] 0 03/25/2021 10:49:18 03/27/2021 14:27:48 Routine care 567229391 Z34.92 VIDAL at 32w2d. complicate d by MTHFR, GBS, and growth restrictio n. B12 and Tdap given today. Follow with MFM for FGR. Continue kick counts. RTC in 2 weeks. Venereal d isease screening 424436754 Z11.3 Small for gestational age fetus 142351358 O36.5999 US on 03/24 with MFM showed growth at 4% consistent with SGA growth pattern, normal Dopplers, CAROLINE WNL. Repeat US scheduled in 2 weeks. Heterozygo us methylenetetrahydrofo late reductase mutation [id number] 68583 E72.12 Heterozygo us for the MTHFR C677T variant. Continue progestero ne, ASA, and folic acid. B12 injection administer ed today. [id number] KAROL LIMA (PHOTOGRAPHIC EQUIPMENT MECHANIC) [address] [place] [address] [phone] 0 04/08/2021 10:43:58 04/25/2021 16:16:38 Routine care 421313193 Z34.93 VIDAL at 34w3d. complicate d by MTHFR, GBS, and SGA fetus. Follow with MFM for growth monitoring . RTC in 2 weeks. Heterozygo us methylenetetrahydrofo late reductase mutation [id number] 63960 E72.12 Heterozygo us for the MTHFR C677T variant. Continue progestero ne, ASA, and folic acid. B12 injection administer ed 03/25/21. Small for gestational age fetus 892431839 O36.5999 US on 04/07 with MFM showed growth at 4% consistent with SGA growth pattern, normal Dopplers, reassuring BPP. Lack of evidence for pathologic growth restrictio n. Repeat US scheduled in 2 weeks. Daily kick counts. [id number] KAROL LIMA (PHOTOGRAPHIC EQUIPMENT MECHANIC) [address] [place] [address] 54131[address]164 0 04/23/2021 11:38:19 04/25/2021 17:28:34 Routine care 319365543 Z34.93 VIDAL at 36w3d. complicate d by MTHFR, GBS, and SGA fetus. Follows with MFM for FGR. UA with 300+ protein and LE edema on exam. BPs high for pt. Sent to [facility] for PIH testing/mo nitoring. RTC in [address] Chamorro. screening 2437 88541 Z36.85 Venereal d isease screening 884898183 Z11.3 Heterozygo us methylenetetrahydrofo late reductase mutation 1626560489 48964 E72.12 Heterozygo us for the MTHFR C677T variant. Continue progestero ne, ASA, and folic acid. B12 injection administer ed today. Small for gestational age fetus 724321497 O36.5999 US on 04/21 with MFM showed growth at 6% consistent with SGA growth pattern, normal Dopplers, reassuring BPP. Lack of evidence for pathologic growth restrictio n. Repeat US scheduled in 2 weeks. Daily kick counts. - induced hypertension 45042923 O13.9 BP in clinic today 122/80. Initial BP 106/54. Pt to [facility] for labs, concerned for impending severe pre-eclamp josé miguel. [id number] MD Daniel Cristina (PHOTOGRAPHIC EQUIPMENT MECHANIC) [address] [place] [address] [phone] 0 05/04/2021 12:27:48 05/04/2021 22:20:06 Past history of hemolysis-elevated liver enzymes-low platelet count syndrome 730234498 Z86.2 Delivery b y emergency section 488953530 O82 care 85619616 8 Z39.2 Postoperative visit 1836 39156 Z09 [id number] MD Daniel Cristina [facility] (PHOTOGRAPHIC EQUIPMENT MECHANIC) [address] [place] [address] [phone] 0 05/12/2021 09:59:29 05/21/2021 14:43:42 care 228797417 Z39.2 Heterozygo us methylenetetrahydrofo late reductase mutation [id number] 90482 E72.12 Delivery b y emergency section 805534569 O82 Past pregn blair history of hemolysis-elevated liver enzymes-low platelet count syndrome 833720687 Z86.2 [id number] MD Daniel Cristina [facility] (PHOTOGRAPHIC EQUIPMENT MECHANIC) [address] [place] [address] 14396-815 0 06/09/2021 11:43:23 06/09/2021 13:11:09 Contraception care 076131399 Z30.40 Uses depot contraception 599586347 Z30.013 Active or passive immunization 188557102 Z23 G#3 Immunization due 7632982 08 Z28.3 covid vaccine [id number] MD Daniel Cristina [facility] (PHOTOGRAPHIC EQUIPMENT MECHANIC) [address] [place] [address] 79290-169 0 08/28/2021 09:58:15 08/31/2021 09:10:45 Family planning surveillance 660391787 Z30.09 [id number] KAROL LIMA (PHOTOGRAPHIC EQUIPMENT MECHANIC) [address] [place] [address] 18785-822 0 11/27/2021 14:21:01 11/30/2021 07:16:05 Contraception care 601532169 Z30.40 [id number] KAROL LIMA [facility] (PHOTOGRAPHIC EQUIPMENT MECHANIC) [address] [place] [address] 02974-783 0 02/19/2022 12:03:04 02/22/2022 12:46:20 Surveillance of depot contraception done 6244855980 9104 Z30.42 [id number] KAROL LIMA (PHOTOGRAPHIC EQUIPMENT MECHANIC) [address] [place] [address] 90686-202 0 03/02/2022 08:29:46 03/04/2022 12:00:27 Dysuria 82871167 R30.9 Pt reporting irritative voiding symptoms x 3 days. UA with trace leuks, otherwise unremarkab le. Given pt's symptoms, will treat empiricall y. Follow up culture. Discussed increasing water intake and proper wiping techniques . RTC if symptoms do not improve. [id number] KAROL RUGGIERO (Adult Med) [address] [place] [address] 07/30/2022 14:25:35 08/03/2022 09:55:20 Mixed anxiety and depressive disorder 179889380 F41.8 Positive anxiety and depression screen todayUpon discussing , patient started crying and said I do not really feel like discussing but then opened up a little. Symptoms started 3 months after delivery. Has good days and bad days. Having family issues and a new mother so increased stress. She is having insomnia due to racing thoughts. No prior medical treatment. She has good support from her .- Agreeable to starting SSRI; discussed common AE including worsening depression /anxiety. Call if any prob w/ meds. Call or go to ER if she feels she is a danger to self or others.- started her with fluoxetine , patient aware to be patient because it takes 4-6 weeks for drug to reach full efficacy, and do not stop drug without contacting us first- f/u in 1 month Headache 75221672 R51.9 Complainin g of new onset headaches x 2 months. The headaches are usually on the left side of yazidi and occipital, do not alternate side. They usually start in the middle of the day and last until she goes to bed. Admits to increased stress at home due to family issues and being a new mother. Admits to wearing glasses but thinks she needs her rx updated. Denies history of migraines. Denies photophobi a and phonophobi a.- rec. seeing eye doctor for updated prescripti on- headaches sound tension in nature rather than migraines, start supportive care- start medication for anxiety and depression , hopefully this helps with insomnia, improved sleep can usually help headaches Anterior epistaxis 61910 4002 R04.0 Complainin g of 3-4 episodes of severe, prolonged nose bleeds over the last month. Always occurs in the morning, heavy with blood clots, always anterior bleeds, and last x 15 minutes.Ad mits to nasal congestion and rhinorrhea . Denies other allergy symptoms or concern for sinusitis. Denies dry air in home, nose picking, ASA or blood thinner use, personal or family history of bleeding disorders, OTC oral or nasal medication s, drug use, trauma to the nose, and other prolonged bleeding with cuts and gum bleeding.U sed to have heavy periods but has been amenorrhei c since starting depo last Summer.ON PE: erythemato us macerated nasal mucosa on both sides of nasal septum, turbinates red and edematous- start loratadine for allergy symptoms- rec. saline nasal spray and vaseline to nasal septum to keep area moistened- will complete labs today- provided her with informatio n for supportive care Anemia 088155854 D64.9 Hx of anemia in the past, prior history of menorrhagi a but has not had a cycle in over 1 year from depo shotCompla ining of headaches and new onset heavy nosebleeds - will recheck today Secondary amenorrhea 156 395027 N91.1 Used to have heavy periods but has been amenorrhei c since starting depo last Summer. She stopped the depo 02/2022 due to SE, has not started her cycle yet.- provided reassuranc e, normal after stopping depo, can take up to 6-9 months to get menses to return [id number] KAROL LIMA (PHOTOGRAPHIC EQUIPMENT MECHANIC) [address] [place] [address]22[address]821 0 10/15/2022 09:19:41 10/20/2022 10:47:46 Amenorrhea 59313848 N91.2 Off Depo Provera since May 2022 and still amenorrhei c. Advised that return to fertility after discontinu ing Depo is delayed, up to 12-18 months. Pt voiced understand ing. Advised to RTC in 6 months if amenorrhea persists, sooner if needed. Start daily PNV. Administra tion of influenza vaccine 13082046 Z23 Annual flu shot administer ed today. [id number] KAROL LIMA (PHOTOGRAPHIC EQUIPMENT MECHANIC) [address] [place] [address] 0 06/09/2023 15:07:36 06/13/2023 11:34:53 Irregular periods 68093601 N92.6 Pt having irregular periods after discontinu ing Depo. Reassured patient that it is not uncommon for it to take 12 - 18 months to resume normal cycle after stopping Depo. Although cycle is irregular, could still happen. Start tracking cycle and taking PNV. Pt voiced understand ing. RTC if irregular cycle persists. [id number] MD Daniel Kelly (PHOTOGRAPHIC EQUIPMENT MECHANIC) [address] [place] [address] 04/09/2024 14:16:12 04/17/2024 16:24:46 Irregular intermenstrual bleeding 81897738 N92.1 Will obtain labs and pelvic USWill treat pending resultsMig ht be related to stress with recent in familyHold ing off on semen analysis and HSG due to previous uncomplica eliu 3 years ago with same partnerIf everything negative, consider starting Metformin Trying to conceive 04559 9001 Z31.49 Recommend daily vitamin Body mass index 25-29 - overweight 152483832 Z68.25 Healthy lifestyle encouraged including regular exercise of at least 150min per week, diet rich in plant based foods and low in added sugars, processed carbohydra kb, and high salt foods. Encouraged protein intake mostly with chicken and white fish and limited red meat. Screening for malignant neoplasm of cervix 007969429 Z12.4 Patient declined pap today because she did not have timeNeeds pap at next visit [id number] Malcolm Davis MD [facility] [address] [place] [address] 04/18/2025 10:11:59 04/18/2025 11:00:20 Irregular intermenstrual bleeding 65120685 N92.1 Will obtain pelvic US reports from [facility]'s tuttle-re[ ports normal was offered oral control pills for menses regulation but patient refused as she wants to become Ho lding off on semen analysis and HSG due to previous uncomplica eliu 3 years ago with same partnerAs everything negative, consider starting Metformin 500mg qd for now will titrate upReceived and discussed test, urine resultsChe ck prolactin- 151193-VFl joey TSH rfx on abnormal to free J1Uljib US, pelvis, transabdom inal + transvagin alCheck nuswab vaginitis plus (vg+)Check testostero ne,free and totalCheck CBC with differenti al/platele tCheck FSH and LHCheck estradiolC heck hemoglobin [id number] -PAll above results normal done on 04/29/2024S uspect POSWill start metformin 500mg Trying to conceive 25584 9001 Z31.49 Recommend daily vitamin Body mass index 25-29 - overweight 466824093 Z68.25 BMI 26.7Health y lifestyle encouraged including regular exercise of at least 150min per week, diet rich in plant based foods and low in added sugars, processed carbohydra kb, and high salt foods. Encouraged protein intake mostly with chicken and white fish and limited red meat. Not enroll ed in health insurance plan [id number] 24314 Z59.71 NO medical insurance Hyperlipid emia screening 198597498 Z13.220 Family his tory of malignant neoplasm of breast in first degree relative 259214866 Z80.3 Patient refuses genetic counselor referral Polycystic ovary syndrome 541059890 E28.2 Depression screening 171 654807 Z13.31 negative Health Concerns Section Related Observation LastModified by Organization Detai ls LastModified Time None Recorded Concern Status LastModified by Organization Details LastModified Time None Recorded Advance Directives Directive N: Payers Insurance Date Sequence Insurance Name Policy Number Policy Bucio Covered Member ID Bucio Member ID Guarantor Name 11/12/2020 SLIDING FEE SCHEDULE - DISCOUNT Tracey Cifuentes 08/27/2024 1 [employer] [place] - DOS ON OR AFTER 2020 (MEDICAID REPLACEMENT - HMO) Tracey Cifuentes [id number] Tracey Cifuentes 04/09/2024 1 *SELF PAY* Br cyndi Cifuentes 08/27/2024 1 [place] Tracey Cifuentes [id number] Tracey Cifuentes 04/20/2017 SLIDING FEE SCHEDULE - DISCOUNT Tracey Cifuentes 01/12/2018 SLIDING FEE SCHEDULE - DISCOUNT Tracey Cifuentes 11/12/2020 2 *SELF PAY* Br cyndi Cifuentes 04/18/2025 SLIDING FEE SCHEDULE - DISCOUNT Tracey Cifuentes 04/18/2025 SLIDING FEE SCHEDULE - DISCOUNT Tracey Esau 12/28/2019 SLIDING FEE SCHEDULE - DISCOUNT Tracey Cifuentes Notes Date Note Type Note Provider Name and Address Organization Details Recorded Time 07/30/2022 text/html 27 year old shady ortega presents today to re-establish care after her most recent delivery 1 year ago, has multiple complaints today to discuss. Complaining of 3-4 episodes of severe, prolonged nose bleeds over the last month. She woke up with the first nose bleed, bleeding was heavy and lasted 15 minutes. Four days later she woke up with the same nose bleed. A few weeks passed and then woke up with another nose bleed 3 days ago. Admits to nasal congestion and rhinorrhea. Denies other allergy symptoms or concern for sinusitis. Denies dry air in home, nose picking, ASA or blood thinner use, personal or family history of bleeding disorders, OTC oral or nasal medications, drug use, trauma to the nose, and other prolonged bleeding with cuts and gum bleeding. Used to have heavy periods but has been amenorrheic since starting depo last Summer. She stopped the depo 02/2022 due to SE, has not started her cycle yet. Complaining of new onset headaches x 2 months. The headaches are usually on the left side of yazidi and occipital, do not alternate side. They usually start in the middle of the day and last until she goes to bed. Admits to increased stress at home due to family issues and being a new mother. Admits to wearing glasses but thinks she needs her rx updated. Denies history of migraines. Denies photophobia and phonophobia. Denies fever, chills, nausea, vomiting, vision changes, ear pain, cough, sneezing, chest pain, SOB, abdominal pain, diarrhea, constipation, or dysuria. KAROL RUGGIERO Attn: Accounting,[address] [place], [address], [place] [facility] 07/30/2022 15:40:29 10/15/2022 text/html 27yo presen ts to clinic for evaluation of amenorrhea. Pt was on Depo for about one year with last injection February 2022. She has still not had a period and is wondering if this is normal. She stopped Depo Provera with the intention of TTC in the near future. She has no other concerns today. Denies galactorrhea, headaches, vision changes, pelvic pain, fevers, chills, n/v, weight changes. KAROL LIMA Attn: Accounting,[address] [facility], [place], [address], [facility] 10/15/2022 09:53:44 06/09/2023 text/html 27yo f presenting for abnormal periods. She was previously on Depo for 2 years after last delivery, with last injection February 2022. Pt had not had period for a year after discontinuing contraception, recently has first period 06/03/23. Patient says the period is light in nature, which is different than her previous periods. She is interested in starting to try to conceive. Denies abnormal discharge, pelvic pain, weight changes, vision changes, nipple discharge, difficulty swallowing, fevers, chills, n/v. KAROL LIMA Attn: Accounting,[address] [facility], [place], [address], [facility] 06/10/2023 11:53:57 04/09/2024 text/html Annual GYNReport ed bypatient.History:p gwendolyn in the near future; actively trying to conceive; Has been trying to conceive for more than a year. Stopped Depo 1.5 years ago. Lost her mom in June and has been feeling anxious. Has one other child with same partner and got within 3 months of trying. Menstrual cycle:Intervals less than 21 days;Irregular cycle intervals;Bleeding between periods; est care, Pt. states that she has been getting her menstrual several days in the same month march 02march 14, , started again april 05 and is currently on it now, however she is having a very light flow Urinary symptoms:No hematuria; No incontinence Vulva:No genital lesion Vagina:Normal vaginal discharge Breast:No breast pain; No breast lump; No nipple discharge Sexual complaints:No sexual complaints; No pain during intercourse; Normal libido Menopausal Symptoms:No menopausal symptoms; Normal vaginal lubrication Psychological symptoms:No depression; No anxiety; No PMDD Preventive measures:Encourage self breast examination; Encourage regular exercise; Encourage no tobacco use; Encourage regular mammograms starting age 40 Minda Alonso MD Attn: Accounting[address] [place], [address], [facility] 04/12/2024 08:29:37 04/18/2025 text/html Annual GYNReport ed bypatient.History:p gwendolyn in the near future; actively trying to conceive; Has been trying to conceive for more than a year. Stopped Depo 1.5 years ago. Lost her mom in June and has been feeling anxious. Has one other child with same partner and got within 3 months of trying. Menstrual cycle:Intervals less than 21 days;Irregular cycle intervals;Bleeding between periods; est care, Pt. states that she has been getting her menstrual several days in the same month January 05 light flow march 06 heavier no periods in march Urinary symptoms:No hematuria; No incontinence Vulva:No genital lesion Vagina:Normal vaginal discharge Breast:No breast pain; No breast lump; No nipple discharge Sexual complaints:No sexual complaints; No pain during intercourse; Normal libido Menopausal Symptoms:No menopausal symptoms; Normal vaginal lubrication Psychological symptoms:No depression; No anxiety; No PMDD Preventive measures:Encourage self breast examination; Encourage regular exercise; Encourage no tobacco use; Encourage regular mammograms starting age [age] y/o L1 HF presents to establish care at this facility. She had irregular cycle work up a year ago and all results normal (except pelvic u/s not done) with DO Nemo Negron. She then saw a provider a [facility] for same problem. There she had a normal pap and pelvic u/s. She was offered oral control pills but she refused as she wants to become . She admits to being very hairy and severe acne that occasionally leaves scars. She is in agreement to start Metformin. CASANDRA Hensley Attn: Accounting[address] [place], [address], [facility] 04/18/2025 11:13:49 OBGyn Episode Ob Episode Information Episode Created Date Number of Fetuses Patient Bloodtype Patient rh Status Prepregnancy Weight lbs Domestic Partner Domestic Partner Phone Father Name Gre Tutor Status 09/24/20 20 1 O Positive 111 Pako fitzpatrick CLOSED Fetus Data First Name Last Name Admitted to NICU Weight (g) Sex Living Outcome Pediatric Complications Fetus ID Race Codes Race Delivery Type jacky cabrera palac ios 2381.35 8 F true Full Term [id number] White Problems Problem Notes Circumcision not sure, yes b reastfeeding, Ped and PPBC not sure, Baby Girl = Corina Problem Name Start Date End Date Resolution Snomed Code Not e growth restriction 03/04/2021 2203 3007 Chlamydia trachomatis infect ion in 10/06/2020 [id number] Group B Streptococcus carrier 10/06/2020 [id number] 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 [id number] Sourav Calculation Initial Sourav Date Initial Exam Date Initial Exam Provider Initial Ultrasound Date Last Menstrual Period Date Ultra Sound Weeks Gestation 05/17/2021 09/24/2020 [email or web address] 10/10/2020 08/06/2020 8 Eighteen To Twenty Week Sourav Update Ultra Sound Date Fundal Height At Umbil Quickening Date Ultra Sound Latest Weeks Gestation Final Sourav Confirmed By Final Sourav Confirmed Date Final Sourav Date Ultra Sound Latest Days Gestation 09/22/20 20 6 [email or web address] 10/13/2020 05/17/20 21 1 Pre-william Flowsheet Flowsheet Date 09/24/2020 Johnson Score Blood Edema Fundus Height Fundus Units Glucose Ketones Leukocytes Nitrite Labor Signs Protein Cervic Dilation Cervic Effacement Cervic Station trace none 7 wks none negative neg 0cm 0% -4 Type Weight in lbs Pre/Post Dialysis Refused Weight 111.545356014674 BP Diastolic BP Location Tested BP Systolic BP Type 54 106 sitting Fetus Heart Rate Present Fetus Movement Comments 24 primigravida presents for NOB at approximately 7 weeks. NOB labs today. OB educational packet reviewed and provided to patient. Order for first trimester US given. Flowsheet Date 10/15/2020 Johnson Score Blood Edema Fundus Height Fundus Units Glucose Ketones Leukocytes Nitrite Labor Signs Protein Cervic Dilation Cervic Effacement Cervic Station trace none 9 none negative neg Type Weight in lbs Pre/Post Dialysis Refused Weight 114.677789715936 BP Diastolic BP Location Tested BP Systolic BP Type 54 90 sitting Fetus Heart Rate Present Fetus Movement Comments VIDAL at 9w3d. Nausea and vomi ting have improved. US 10/10 with EDC 05/17/2021. Flowsheet Date 12/10/2020 Johnson Score Blood Edema Fundus Height Fundus Units Glucose Ketones Leukocytes Nitrite Labor Signs Protein Cervic Dilation Cervic Effacement Cervic Station neg none 17 wks none negative none neg Type Weight in lbs Pre/Post Dialysis Refused Weight 117.538037290370 BP Diastolic BP Location Tested BP Systolic BP Type 58 110 sitting Fetus Heart Rate Present A 145 Present Fetus Movement A Yes Comments VIDAL at 17w3d. No concerns. B 12 administered. AFP drawn. Order for anatomy survey provided. Flowsheet Date 01/07/2021 Johnson Score Blood Edema Fundus Height Fundus Units Glucose Ketones Leukocytes Nitrite Labor Signs Protein Cervic Dilation Cervic Effacement Cervic Station neg none 21 cm none negative none neg Type Weight in lbs Pre/Post Dialysis Refused With clothes 121.445157574098 BP Diastolic BP Location Tested BP Systolic BP Type 54 94 sitting 58 102 sitting Fetus Heart Rate Present A 152 Present Fetus Movement A Yes Comments VIDAL 21w3d. US done on 12/29 w ith normal anatomy survey and EFW 51%. B12 administered. Flowsheet Date 02/04/2021 Johnson Score Blood Edema Fundus Height Fundus Units Glucose Ketones Leukocytes Nitrite Labor Signs Protein Cervic Dilation Cervic Effacement Cervic Station neg none 23 cm none negative none trace Type Weight in lbs Pre/Post Dialysis Refused With clothes 124.083781854069 BP Diastolic BP Location Tested BP Systolic BP Type 56 90 sitting Fetus Heart Rate Present A 136 Fetus Movement A Yes Comments VIDAL at 25w3d. B12 administer ed. GCT completed today. Educated patient on Kick counts, WTC, ER precautions. Order for 3rd trimester US provided. Flowsheet Date 03/04/2021 Johnson Score Blood Edema Fundus Height Fundus Units Glucose Ketones Leukocytes Nitrite Labor Signs Protein Cervic Dilation Cervic Effacement Cervic Station trace none 23 cm none negative none trace Type Weight in lbs Pre/Post Dialysis Refused With clothes 128.855952934801 BP Diastolic BP Location Tested BP Systolic BP Type 62 90 sitting 60 100 sitting Fetus Heart Rate Present A 145 Present Fetus Movement A Yes Comments VIDAL at 29w3d. GCT negative. US on 03/03/2021 with growth restriction, EFW < 3%, CAROLINE WNL. Reassuring BPP, no abnormalities were detected on detailed anatomic survey. Continue to follow with [facility] for weekly Dopplers and 10-point BPP while awaiting repeat growth assessment in ~3 weeks. Office out of tdap, plan to administer at next visit. Flowsheet Date 03/25/2021 Johnson Score Blood Edema Fundus Height Fundus Units Glucose Ketones Leukocytes Nitrite Labor Signs Protein Cervic Dilation Cervic Effacement Cervic Station neg none 28 cm none negative Jarrell Ojeda neg Type Weight in lbs Pre/Post Dialysis Refused With clothes 137.536237396598 BP Diastolic BP Location Tested BP Systolic BP Type 62 112 sitting 74 110 sitting Fetus Heart Rate Present A 135 Present Fetus Movement A Yes Comments VIDAL at 32w3d. B12 and Tdap g iven today. US w/ MFM on 03/24 reassuring with growth at 4% consistent with SGA growth pattern, normal Dopplers, CAROLINE WNL. Repeat US scheduled in 2 weeks. Flowsheet Date 04/08/2021 Johnson Score Blood Edema Fundus Height Fundus Units Glucose Ketones Leukocytes Nitrite Labor Signs Protein Cervic Dilation Cervic Effacement Cervic Station neg none 30 cm none negative none trace Type Weight in lbs Pre/Post Dialysis Refused With clothes 141.833775543492 BP Diastolic BP Location Tested BP Systolic BP Type 72 110 sitting Fetus Heart Rate Present A 145 Present Fetus Movement A Yes Comments VIDAL at 34w3d. [facility] US on 04/07 shows 4th percentile, CAROLINE WNL, BPP reassuring; next US in 2 weeks. Continue kick counts. Flowsheet Date 04/23/2021 Johnson Score Blood Edema Fundus Height Fundus Units Glucose Ketones Leukocytes Nitrite Labor Signs Protein Cervic Dilation Cervic Effacement Cervic Station trace 1+ 32 cm none negative none 3+ 0cm 0% -4 Type Weight in lbs Pre/Post Dialysis Refused With clothes 145.2348760972 BP Diastolic BP Location Tested BP Systolic BP Type 80 112 sitting 80 112 sitting 80 122 sitting Fetus Heart Rate Present A 140 Present Fetus Movement A Yes Comments VIDAL at 36w4d. US w/ MFM on reassuring with growth at 6% consistent with SGA growth pattern, normal Dopplers, CAROLINE WNL. Repeat US scheduled in 2 weeks. BP uptrending with 300+ protein on UA. Pt sent to [facility] for PIH testing/monitoring. Discussed with Dr. Chamorro. Flowsheet Date 05/04/2021 Johnson Score Blood Edema Fundus Height Fundus Units Glucose Ketones Leukocytes Nitrite Labor Signs Protein Cervic Dilation Cervic Effacement Cervic Station Type Weight in lbs Pre/Post Dialysis Refused Weight 123.605304639156 BP Diastolic BP Location Tested BP Systolic BP Type 76 102 sitting Fetus Heart Rate Present Fetus Movement Comments Flowsheet Date 05/12/2021 Johnson Score Blood Edema Fundus Height Fundus Units Glucose Ketones Leukocytes Nitrite Labor Signs Protein Cervic Dilation Cervic Effacement Cervic Station Type Weight in lbs Pre/Post Dialysis Refused With clothes 127.217373233523 BP Diastolic BP Location Tested BP Systolic BP Type 58 106 sitting Fetus Heart Rate Present Fetus Movement Comments Menstrual History Last Menstrual Date Menses Monthly On Bcp Conception Prior Menses Frequency Hcg Plus Date Menarche Onset Age 0908/06/2020 true false 11 Genetic Screening And Infection History Question Response Note Patient's Age Will Be 35 Years Or Older At Estim ated Date of Delivery false Thalassemia (Armenian, Syrian, Mediterranean, Or Background): MCV < 80 false Neural Tube Defect (Meningomyelocele, Spina Bifi da, Or Anencephaly) false Congenital Heart Defect false Down Syndrome false Graham-Sachs (eg, Roman Catholic, Cajun, Arabic-Starr) f alse Alfredo Disease false Sickle Cell Disease Or Trait () false Hemophilia Or Other Blood Disorders false Muscular Dystrophy false Cystic Fibrosis false Dyer's Chorea false Mental Retardation/Autism false If Yes, Was Person Tested For Fragile X? false Other Inherited Genetic Or Chromosomal Disorder false Maternal Metabolic Disorder (eg, Type 1 Diabetes , PKU) false Patient Or Baby's Father Had A Child With Defects Not Listed Above false Recurrent Loss, Or A Stillbirth false Medications (including Suppl ements, Vitamins, Herbs, OTC Drugs), Illicit/Recreational Drugs, Alcohol false If Yes, Agent(s) And Strength/Dosage false Any Other Genetic History false Live With Someone With TB Or Exposed To TB false Patient Or Partner Has History Of Genital Herpes false Rash Or Viral Illness Since Last Menstrual Perio d false History Of STD, Gonorrhea, Chlamydia, HPV, Syphi lis false Other Infection History false History of HIV false History of Hepatitis false Prior GBS-infected child false Plans and Education First Trimester Discussed Date Discussion Item Discussion Note Discuss ed By 09/24/2020 Anticipated course o f care [email or web address] 09/24/2020 Alcohol denies [email or web address] 09/24/2020 Intimate partner violence denies mervat [email or web address] 09/24/2020 Environmental/work hazards j [email or web address] 09/24/2020 Screening for aneuploidy jco [email or web address] 09/24/2020 Nutrition counseling ; special diet; dietary precautions (mercury, listeriosis) [email or web address] 09/24/2020 Childbirth classes/h ospital facilities schedule of classes provided [email or web address] 09/24/2020 HIV and other routin e tests [email or web address] 09/24/2020 Risk factors identif ied by history [email or web address] 09/24/2020 Weight gain counseling 25-35 pounds jcort [email or web address] 09/24/2020 Exercise [email or web address] 09/24/2020 Teratogens [email or web address] 09/24/2020 Use of any medicatio ns (including supplements, vitamins, herbs, or OTC drugs) [email or web address] 09/24/2020 plans to breastfeed [email or web address] [email or web address] 09/24/2020 Sexual activity [email or web address] 09/24/2020 Tobacco/smoking cess ation counseling (ask, advise, assess, assist, and arrange) denies [email or web address] 09/24/2020 Illicit/recreational drugs denies j [email or web address] 09/24/2020 Dental care dental consent provided jcor [email or web address] 09/24/2020 Travel [email or web address] 09/24/2020 Seat belt use [email or web address] 09/24/2020 Indications for ultrasonography [email or web address] 09/24/2020 Avoidance of saunas or hot tubs [email or web address] 09/24/2020 Toxoplasmosis precau tions (cats/raw meat) [email or web address] Second Trimester Discussed Date Discussion Item Discussion Note Discuss ed By 12/10/2020 Selecting a care provider [email or web address] 12/10/[address] anning/tubal sterilization [email or web address] 12/10/2020 Depression screening (when indicated) [email or web address] 12/10/2020 Abnormal lab values [email or web address] [email or web address] 12/10/2020 Signs and symptoms of labor [email or web address] 12/10/2020 Intimate partner violence mervat [email or web address] 12/10/2020 Tobacco/smoking cess ation counseling (ask, advise, assess, assist, and arrange) [email or web address] Third Trimester Discussed Date Discussion Item Discussion Note Discuss ed By 03/05/2021 Intimate partner violence mervat [email or web address] 03/05/2021 Anesthesia plans [email or web address] 03/05/2021 [place] education (n ewborn screening, jaundice, SIDS/safe sleeping position, car seat) [email or web address] 03/05/2021 Circumcision [email or web address] 03/05/2021 Postterm counseling jcortopa [email or web address] 03/05/2021 movement monitoring mervat [email or web address] 03/05/2021 [email or web address] 03/05/2021 Labor signs [email or web address] 03/05/2021 depression [email or web address] [email or web address] 03/05/2021 Family medical leave or disability forms [email or web address] 03/05/2021 Tobacco/smoking cess ation counseling (ask, advise, assess, assist, and arrange) [email or web address] 03/05/2021 Signs [facility] symptoms of [email or web address] Delivery Information Delivery Date Delivery Type Labor Anesthesia Weeks Gestation Incision Type Labor Labor Length Hrs Delivered By Post Complications Tubal Sterilization Discharge Date Comments None Regional-Ep idural 37 Conor Preston MD None false 04/29/2021 Discharge Information Feeding Method Contraceptive Method Maternal HG B and HCT Levels Breast
--- OUTSIDE RECORDS SUMMARY | 2025-04-20 09:08 | XMS_ITS | Clinical Summary ---
Author Organization [facility] Address [address] [place] [address] Care Team Providers Care Blade Filer Name Role Phone Unavailable Primary Care Provider Unavailabl e Source Comments [facility],non-owned Affiliates and Associated Physician Practices is amultiple site organization consisting of ambulatory clinics and hospital sitesin [place], [place] and [place]. This disclosure is being madepursuant to the Care Everywhere program and may not contain all information available regarding this patient. Last updated 18.[facility] Allergies Active Allergy Reactions Criticality Noted Date Comments Codeine Itching 07/04/2019 Morphine Shortness of Breath High 07/04/2019 Medications * Be aware that medications may not be up to date on this document. Alwaysverify current medications with the patient. ibuprofen (MOTRIN) 600 MG tablet Take 1 Tab by mouth every 6 hours as needed for Pain. 120 Tab 1 02/01/2012 Active Active Problems Problem Noted Date Diagnosed Date Small for dates affecting management of mother 0 03/02/2021 Overview (03/02/2021): EFW 4.7% on outside scan. Supervision of normal first 03/02/2021 Overview (03/02/2021): O+, Negative, Rpr-Negative, Hbsag-Negative, HIV- Negative H/h/p: 12.0/36.1/316 Social History Tobacco Use Types Packs/Day Years Used Date Smoking Tobacco: Never Smokeless Tobacco: Current Alcohol Use Standard Drinks/Week Comments No 0 (1 standard drink = 0.6 oz pur e alcohol) Comments No Sex and Gender Information Value Date Recorded Sex Assigned at Not on file Legal Sex Female 1:19 PM [employer] Gender Identity Not on file Sexual Orientation Not on file Last Filed Vital Signs Vital Sign Reading Time Taken Comments Blood Pressure 132/75 04/07/2021 9:27 AM CDT Pulse 68 04/07/2021 9:27 AM CDT Temperature 36.5 C (97.7 F) 03/03/2021 11:33 AM CDT Respiratory Rate 18 04/18/2019 9:22 PM CDT Oxygen Saturation 100% 04/18/2019 9:22 PM CDT Inhaled Oxygen Concentration - - Weight 47.6 kg (105 lb) 04/18/2019 9:22 PM CDT Height 152.4 cm (5') 04/18/2019 9:22 PM CDT Body Mass Index 20.51 04/18/2019 9:22 PM CDT Plan of Treatment Health Maintenance Due Date Last Done Comments HIV SCREENING 2011 HEPATITIS C SCREENING 06/29/2014 DTAP/TDAP/TD VACCINES (1 - Tdap) 2015 HEPATITIS B VACCINE (1 of 3 - 19+ 3-dose series) 2015 COVID-19 VACCINE (1 - 2023-2 5 season) 2024 DEPRESSION SCREENING 11/07/2024 INFLUENZA VACCINE (Season Ended) 2025 09/24/2020, 01/12/2018, 08/23/2017 ZOSTER VACCINE (1 of 2) 2046 HIB VACCINE Aged Out No longer eligi ble based on patient's age to complete this topic HPV VACCINE Aged Out No longer eligi ble based on patient's age to complete this topic MENINGOCOCCAL (Group B) VACCINE SHARED DECISION-MAKING Aged Out No longer eligible based on patient's age to complete this topic MENINGOCOCCAL GROUPS A/C/Y/W VACCINE Aged Out No longer eligible b ased on patient's age to complete this topic PNEUMOCOCCAL VACCINE Aged Out No long er eligible based on patient's age to complete this topic Insurance MEDICAID [employer] [facility]
--- OUTSIDE RECORDS SUMMARY | 2025-04-20 09:08 | XMS_ITS | Continuity of Care Document ---
Author Organization [facility] Address [address] [place] [address] Phone Care Team Providers Care Senior Process Engineer Name Role Phone Unavailable Unavailable Unavailable Allergies, [...] Diagnoses Date Provider Providers Copied on Encounter [facility], [address], [place], [place], [address] , [place] tel: [phone] [facility] No Information 4 No Information [facility], [address], [place], [place], [address] , [place] tel: [phone] [facility] No Information 2 No Information 1ST COMPRE PREV MED E/M NEW PT 10-23 [facility], [address], [place], [place], [id number] , [place] tel: [phone] [facility] Well Child Visit (chief [...]
[2025-04-20 09:10] VITALS: BP 124/66; PULSE 74; RESP 16; TEMP 36.6; O2SAT 99
--- OUTSIDE RECORDS SUMMARY | 2025-04-20 09:20 | XMS_ITS | Continuity of Care Document ---
Author Organization [facility] Address [address] [place] [address] Phone Care Team Providers Care Splicing Supervisor Name Role Phone Unavailable Unavailable Unavailable [...] Diagnoses Date Provider Providers Copied on Encounter [facility], [address], [place], [place], [id number] , [place] tel: [phone] [facility] No Information 4 No Information [facility], [address], [place], [place], [id number] , [place] tel: [phone] [facility] No Information 2 No Information 1ST COMPRE PREV MED E/M NEW PT 10-23 [facility], [address], [place], [place], [address] , [place] tel: [phone] [facility] Well Child Visit (chief [...] Record Payers Payer name Insurance type Covered constitution party ID Authoriza tion(s) No Information Social History [...]
[2025-04-20 09:34] LABS: Basophils Percent Auto 0.5 % (0.2-1.2); Eosinophils Absolute Auto 0.1 K/mm3 (0-0.3); Eosinophils Percent Auto 1.4 % (0-4.4); Hematocrit 35.8 % (37.0-47.0); Hemoglobin 11.1 g/dL (12.0-15.0); Immature Granulocyte Absolute 0.02 K/mm3 (0.00-0.031); Immature Granulocyte Percent A 0.3 % (0-0.5); Lymphocytes Absolute Auto 2.68 K/mm3 (0.9-3.2); Lymphocytes Percent Auto 34.4 % (18.3-44.2); Mean Corpuscular Hemoglobin 25.9 pg (26-34); Mean Corpuscular Volume 83.4 fl (80-100); Mean Platelet Volume 9.3 fl (7.4-10.4); Monocytes Absolute Auto 0.4 K/mm3 (0.1-0.6); Monocytes Percent Auto 5.5 % (2.6-8.5); Neutrophils Absolute Auto 4.5 K/mm3 (1.3-6.7); Neutrophils Percent Auto 57.9 % (45.5-73.1); Platelet Count Result 381 k/mm3 (150-375); Red Blood Count 4.29 M/mm3 (4.2-5.4); White Blood Count 7.8 K/mm3 (4.5-10.0)
[2025-04-20 09:44] LABS: Alanine Aminotransferase 15 U/L (6-35); Albumin Level 4.5 g/dL (3.5-5.1); Alkaline Phosphatase 69 U/L (38-126); Anion Gap 14 mmol/L (4-12); Aspartate Amino Transferase 27 U/L (14-36); Bilirubin,Total 0.5 mg/dL (0.2-1.3); Blood Urea Nitrogen 12 mg/dL (7-17); Calcium 9.2 mg/dL (8.4-10.2); Carbon Dioxide 17 mmol/L (22-30); Chloride 107 mmol/L (98-107); Estimated CRCL calculation 84 ml/min; Estimated Glomerular Filt Rate > 60; Glucose 119 mg/dL (65-110); Potassium 3.9 mmol/L (3.4-5.0); Sodium 138 mmol/L (137-145); Total Protein 8.4 g/dL (6.3-8.2)
[2025-04-20 09:49] LABS: Prothrombin Time 13.4 Seconds (11.1-14.7)
[2025-04-20 09:50] LABS: Partial Thromboplastin Time 28.5 Seconds (22.3-36.8)
[2025-04-20 10:00] LABS: Color Urine Red (Yellow)
[2025-04-20 10:01] LABS: Add Urine Microscopic? YES; Appearance Urine Turbid (Clear); Beta HCG Quantitative 14.78 mIU/ML; Bilirubin Urine Negative (Negative); Blood Urine 3+ (Negative); Ketones Urine Negative (Negative); Leukocyte Esterase Ur Trace LEU/UL (Negative); Nitrate Urine Negative (Negative); Protein Urine 3+ mg/dL (Negative); Urobilinogen Urine 0.2 mg/dL (<2.0)
[2025-04-20 10:01] LABS: BEDSIDEPREGUCG Negative (Negative)
[2025-04-20 10:02] LABS: RBC Urine >100 /hpf (0-2); WBC Urine 0-5 /hpf (0-3)
[2025-04-20 10:03] LABS: Bacteria Urine Trace /hpf; Squamous Epithelial Cell Urine Noted /hpf (Few)
[2025-04-20 10:04] LABS: Glucose Urine UA Negative (Negative)
--- NOTE | 2025-04-20 10:38 | ED_ITS ---
HPI - General Adult General Chief complaint: Vaginal Bleeding Stated complaint: vag bleed- 4 weeks Time Seen by Provider: 04/20/25 09:10 History of Present Illness HPI narrative: 29-year-old female is approximately 4 weeks presented to the emergency department for evaluation for vaginal bleeding and lower abdominal cramping. Patient states that she had a positive test at home and also had a negative test at home. Patient did have follow-up with her primary care physician yesterday and did ultimately have a positive blood test with a reported beta hCG of approximately 17. Patient began having some worsening abdominal cramping and did have some vaginal bleeding today. Patient describes it as comparable to a menstrual cycle. Patient's blood type in our system is O-positive. Related Data Allergies Allergy/AdvReac Type Severity Reaction Status Date / Time codeine Allergy Mild Difficulty Verified 04/20/25 09:32 Breathing morphine Allergy Unknown Difficulty Verified 04/20/25 09:31 Breathing Review of Systems 2 Review of Systems: All systems reviewed & are unremarkable except as noted in HPI and below PMFSH Past Medical History Medical History delivery due to maternal disorder HELLP syndrome Patellar tendonitis induced hypertension Term delivered Surgical History Surgical History No significant past surgical history Social History Social History Smoking status: Never smoker Substance use: never Gender identity (if verbalized by the patient): Female Spiritual care concerns: No Exam 2 Narrative: APPEARANCE: Well appearing, no pain, no distress, well-nourished. HEAD: normocephalic, atraumatic. EYES: PERRLA/EOMI, conjunctivae clear. NOSE: Normal no drainage EARS:TMS clear with good light reflex. THROAT: Pharynx clear, no exudate. NECK: Supple. No adenopathy, no masses. RESPIRATORY: Airway patent, respirations nonlabored. Clear to auscultation bilaterally, no rales, rhonchi, wheezing. CARDIOVASCULAR: Regular rate and rhythm without murmurs rubs or gallops. ABDOMINAL: Soft, nontender, nondistended, normal bowel sounds MUSCULOSKELETAL: Moves all extremities. Strength/ROM intact, No edema, No calf tenderness. NEURO: Alert. Cranial nerves II through XII intact. Good gait. Good coordination SKIN: Warm, dry. Normal Color Course Vital Signs Vital signs: Vital Signs Temperature 97.8 F 04/20/25 09:10 Pulse Rate 74 04/20/25 09:10 Respiratory Rate 16 04/20/25 09:10 Blood Pressure 124/66 04/20/25 09:10 Pulse Oximetry 99 04/20/25 09:10 Oxygen Delivery Room Air 04/20/25 09:10 Temperature 97.8 F 04/20/25 09:10 Pulse Rate 64 04/20/25 11:15 Respiratory Rate 16 04/20/25 11:15 Blood Pressure 109/63 04/20/25 11:15 Pulse Oximetry 100 04/20/25 11:15 Oxygen Delivery Room Air 04/20/25 09:10 Medical Decision Making MDM Narrative Medical decision making narrative: 21-year-old female presents emergency department for evaluation for vaginal bleeding and lower abdominal cramping. Patient is currently afebrile with no leukocytosis hemoglobin of 11.1. Patient's INR is 1.0. Patient is no acute abnormalities on her CMP UA was positive for blood but negative for infection. Ultrasound shows no definite intrauterine . Patient's beta hCG today was 14. Patient was updated the results of her workup scarred of close follow- up with OB Gyne for additional beta hCG testing and potential ultrasound. Patient was informed this is most likely the early stages of a miscarriage. All questions concerns were addressed patient was well-appearing at time of discharge. Differential Diagnosis Differential Diagnosis: Ectopic , miscarriage, early Vital Signs Vital Signs: Vital Signs Temperature 97.8 F 04/20/25 09:10 Pulse Rate 74 04/20/25 09:10 Respiratory Rate 16 04/20/25 09:10 Blood Pressure 124/66 04/20/25 09:10 Pulse Oximetry 99 04/20/25 09:10 Oxygen Delivery Room Air 04/20/25 09:10 Temperature 97.8 F 04/20/25 09:10 Pulse Rate 64 04/20/25 11:15 Respiratory Rate 16 04/20/25 11:15 Blood Pressure 109/63 04/20/25 11:15 Pulse Oximetry 100 04/20/25 11:15 Oxygen Delivery Room Air 06/14/25 09:10 Lab Data Lab results reviewed: Yes I reviewed the patient's lab results. 04/20/25 09:25 04/20/25 09:25 Labs: Lab Results 04/20/25 04/20/25 Range/Units 09:15 09:25 WBC 7.8 (4.5-10.0) K/mm3 RBC 4.29 (4.2-5.4) M/mm3 Hgb 11.1 L (12.0-15.0) g/dL Hct 35.8 L (37.0-47.0) % MCV 83.4 (80-100) fl MCH 25.9 L (26-34) pg MCHC 31.0 L (32-36) g/dl RDW 14.0 (11.5-14.5) % Plt Count 381 H (150-375) k/mm3 MPV 9.3 (7.4-10.4) fl Immature Gran % (Auto) 0.3 (0-0.5) % Neut % (Auto) 57.9 (45.5-73.1) % Lymph % (Auto) 34.4 (18.3-44.2) % [place] % (Auto) 5.5 (2.6-8.5) % Eos % (Auto) 1.4 (0-4.4) % Baso % (Auto) 0.5 (0.2-1.2) % Lymph # (Auto) 2.68 (0.9-3.2) K/mm3 [place] # (Auto) 0.4 (0.1-0.6) K/mm3 Eos # (Auto) 0.1 (0-0.3) K/mm3 Baso # (Auto) 0.0 (0.0-0.1) K/mm3 Abs Immat Gran (auto) 0.02 (0.00-0.031) K/mm3 Absolute Neuts (auto) 4.5 (1.3-6.7) K/mm3 Absolute Nucleated RBC 0.000 (0.0-0.012) K/mm3 Nucleated RBC % 0.0 (0.0-0.2) % PT 13.4 (11.1-14.7) Seconds INR 1.0 APTT 28.5 (22.3-36.8) Seconds Sodium 138 (137-145) mmol/L Potassium 3.9 (3.4-5.0) mmol/L Chloride 107 (98-107) mmol/L Carbon Dioxide 17 L (22-30) mmol/L Anion Gap 14 H (4-12) mmol/L BUN 12 (7-17) mg/dL Creatinine 0.74 (0.7-1.0) mg/dL Estim Creat Clear Calc 84 ml/min Estimated GFR > 60 (59 - ) Glucose 119 H (65-110) mg/dL Calcium 9.2 (8.4-10.2) mg/dL Total Bilirubin 0.5 (0.2-1.3) mg/dL AST 27 (14-36) U/L ALT 15 (6-35) U/L Alkaline Phosphatase 69 (38-126) U/L Total Protein 8.4 H (6.3-8.2) g/dL Albumin 4.5 (3.5-5.1) g/dL Beta HCG, Quant 14.78 mIU/ML Urine Color Red H (Yellow) Urine Appearance Turbid H (Clear) Urine pH 6.0 (5.0-9.0) Ur Specific [place] 1.030 (1.001-1.035) Urine Protein 3+ H (Negative) mg/dL Urine Glucose (UA) Negative (Negative) mg/dL Urine Ketones Negative (Negative) mg/dL Ur Blood (Man) 3+ H (Negative) Urine Nitrate Negative (Negative) Urine Bilirubin Negative (Negative) Urine Urobilinogen 0.2 (<2.0) mg/dL Leukocyte Esterase Rfl Trace H (Negative) PALLAVI/UL Urine RBC >100 H (0-2) /hpf Urine WBC 0-5 (0-3) /hpf Ur Squamous Epith Cells Noted (Few) /hpf Urine Bacteria Trace (None) /hpf POC Urine HCG, Qual Negative (Negative) Imaging Data Radiologist's impression: Impressions Obstetrics Ultrasound 04/20/25 11:24 Impression: 1: Unremarkable pelvic ultrasound. No evidence for intrauterine . Differential diagnosis if there is a positive test includes very early intrauterine , failed and ectopic . Recommend follow-up with serial quantitative beta-hCG levels and ultrasound as clinically indicated. Discharge Plan Discharge Clinical Impression: Vaginal bleeding affecting early Patient Disposition: Home Condition: Stable Instructions: Antibiotic Form, Threatened Miscarriage (ED) Additional Instructions: You will need to have close follow-up with your OB Gyne for repeat beta-hCG testing on Tuesday and potentially a repeat ultrasound. Your beta hCG today was 14.78. If you have any worsening symptoms and please call or return to the emergency department. Drink plenty of fluids and Tylenol for pain control. Patient Language: Libyan Prescriptions: No Action ondansetron 4 mg tablet,disintegrating 4 mg PO Q8H PRN (Reason: nausea and vomiting) Qty: 20 0RF amoxicillin-pot clavulanate 875-125 mg tablet 1 tablet PO Q12H Qty: 14 0RF ondansetron 4 mg tablet,disintegrating 4 mg PO Q8H PRN (Reason: nausea and vomiting) Qty: 10 0RF Follow-up/Referrals: Binh,ISABEL Panda [Primary Care Provider] -
[2025-04-20 11:15] VITALS: BP 109/63; PULSE 64; RESP 16; O2SAT 100
== END 2025-04-20 11:45 | disposition home or self-care (01) ==
PROVIDERS: Emergency Provider Emergency Medicine; PCP Registered Nurse
DX: O20.9 Hemorrhage in early pregnancy, unspecified (principal); Z3A.01 Less than 8 weeks gestation of pregnancy
CPT/HCPCS: 36415; 76801; 76817; 80053; 81001; 81025; 84702; 85025; 85610; 85730; 99284

== ENCOUNTER 2025-08-27 18:39 | Emergency (ER) | payer MEDICAID, SELFPAY ==
--- OUTSIDE RECORDS SUMMARY | 2014-03-16 18:55 | XMS_ITS | Continuity of Care Document ---
Author Organization [facility] Address [address] [place] [address] Phone Care Team Providers Care Track Mechanic Name Role Phone Unavailable Unavailable Unavailable Allergies, Adverse Reactions, Alerts Substance Reaction Status Criticality No Known allergies Procedures Procedure Date PURE TONE AUDIOMETRY (THRESHOLD); AIR AN D BONE SCREENING TEST OF VISUAL ACUITY, QUANTIT ATIVE, BILATERAL 1ST COMPRE PREV MED E/M NEW PT 10-23 COLLECTION OF VENOUS BLOOD BY VENIPUNCTU RE Advance Directives Directive Yes / No Effective Date File Name No Information Encounters Encounter Description Practice Location Reason(s) For Visit Diagnoses Date Provider Providers Copied on Encounter [facility] [address], [place], [place], [id number] , [place] tel: [phone] [facility] No Information 4 No Information [facility], [address], [place], [place], [id number] , [place] tel: [phone] [facility] No Information 2 No Information 1ST COMPRE PREV MED E/M NEW PT 10-23 [facility], [address], [place], [place], [id number] , [place] tel: [phone] [facility] Well Child Visit (chief complaint) Routine or child health checkRoutine or child health checkScreening examination for pulmonary tuberculosisMenstr ual periods irregular 2 No Information Family History Family Member Type Diagnosis Age At Onset Mother Problem (finding) hypertension Immunizations Vaccine Date Status Comments HPV administered Source: New Imm unization Record MCV4 (11-55 yrs) administered Source: New Immunization Record VFC-HEMOPHILUS INFLUENZA B VACCINE (HIB), HBOC CONJUGATE (4 DOSE SCHEDULE), IM USE administered Note: Set proc edure code where blank for historical non-specific HIB entry. ; Source: New Immunization Record hep A (ped/adol, 2 dose) administered Ramona rce: New Immunization Record polio, inactivated (IPV) administered [facility]: New Immunization Record Tdap administered Source: New Imm unization Record DTaP administered Source: New Imm unization Record hep B (ped/adol, 3 dose) administered Ramona rce: New Immunization Record DTaP administered Source: New Imm unization Record polio, inactivated (IPV) administered Ramona [facility]ce: New Immunization Record DTaP administered Source: New Imm unization Record hep A (ped/adol, 2 dose) administered Ramona rce: New Immunization Record hep B (ped/adol, 3 dose) administered Ramoan rce: New Immunization Record polio, inactivated (IPV) administered Ramona rce: New Immunization Record MMR administered Source: New Imm unization Record polio, inactivated (IPV) administered Ramona rce: New Immunization Record MMR administered Source: New Imm unization Record varicella administered Source: New Imm unization Record hep B (ped/adol, 3 dose) administered Ramona rce: New Immunization Record DTaP administered Source: New Imm unization Record DTaP administered Source: New Imm unization Record VFC-HEMOPHILUS INFLUENZA B VACCINE (HIB), HBOC CONJUGATE (4 DOSE SCHEDULE), IM USE administered Note: Set proc edure code where blank for historical non-specific HIB entry. ; Source: New Immunization Record DTaP administered Source: New Imm unization Record VFC-HEMOPHILUS INFLUENZA B VACCINE (HIB), HBOC CONJUGATE (4 DOSE SCHEDULE), IM USE administered Note: Set proc edure code where blank for historical non-specific HIB entry. ; Source: New Immunization Record Payers Payer name Insurance type Covered democrat ID Authoriza tion(s) No Information Social History Type Description Quantity Date Captured Comments Sex Female Smoking Status No Information Chief Complaint And Reason For Visit No Information Reason For Referral Reason For Referral No Information Plan Of Treatment Date Type Action Status Goal HPV (1st). Due on 2 due Goal Breast exam. Due on 012 due History Of Present Illness Encounter Date Complaint History Of Prese nt Illness No Information Functional Status Date Functional Assessmen t No Information Instructions Date Instruction Additional Infor mation No Information Assessments Type Assessment Date No Information Patient Care Teams Name Effective Dates (start - stop) Status Members No Information
--- OUTSIDE RECORDS SUMMARY | 2014-03-16 18:55 | XMS_ITS | Continuity of Care Document ---
Author Organization [facility] Address [address] [place] [address] Phone Care Team Providers Care Truck Supervisor Name Role Phone Unavailable Unavailable Unavailable Allergies, [...] Diagnoses Date Provider Providers Copied on [facility]counter [facility] [address], [place], [place], [id number] , [place] tel: [phone] [facility] No Information 4 No Information [facility], [address], [place], [place], [address] , [place] tel: [phone] [facility] No Information 2 No Information 1ST COMPRE PREV MED E/M NEW PT 10-23 [facility] [address], [place], [place], [id number] , [place] tel: [phone] [facility] Well Child Visit (chief [...] Record Payers Payer name Insurance type Covered republican ID Authoriza tion(s) No Information Social History [...]
[2025-08-27 18:52] VITALS: BP 109/56; PULSE 74; RESP 16; TEMP 36.4; O2SAT 100
[2025-08-27 19:33] LABS: Add Urine Microscopic? YES; Appearance Urine Clear (Clear); Glucose Urine UA Negative (Negative); Leukocyte Esterase Ur Trace LEU/UL (Negative); Nitrate Urine Negative (Negative); Non Pathogenic Casts 0-2; Specific Grav Ur 1.009 (1.001-1.035)
--- NOTE | 2025-08-27 19:52 | PC.NURSE ---
monitored the patient from [id number] no contractions noted at this time. FHT in 160's no contractions felt by the patient at this time.
--- OUTSIDE RECORDS SUMMARY | 2025-08-27 20:03 | XMS_ITS | Data Portability ---
Author Organization [facility] Address [address] [place] [address] Care Team Providers Care Cup Machine Operator Name Role Phone SHAREE MCCORMICK Primary Care Provider [phone] FELIZ POWELL Pocketed Spring Machine Operator [phone] Assessment No assessment recorded. Plan of Treatment Reminders Order Date Submit Date Provider Last Modified By Organization Details Last Modified Time Details Appointments None recorde dGio Lab pregnan cy test, urine 2024 025 AZAEL In-Office Order, Internal Use Only DO Not Attach Compendium DO Not Attach Compendium, Do Not Delete/merge, [id number] 13:24:17 urinaly sis, dipstic k 2024 025 AZAEL In-Office Order, Internal Use Only DO Not Attach Compendium DO Not Attach Compendium, Do Not Delete/merge, [id number] 13:22:36 HCG, intact + beta subunit , quant, serum or plasma 2024 025 AZAEL [facility], [address], [place], [address], 08:29:21 pregnan cy test, urine 2024 025 cate In-Office Order, Internal Use Only DO Not Attach Compendium DO Not Attach Compendium, Do Not Delete/merge, [id number] 5 11:13:25 lipid panel, serum 2024 025 [email or web address] [facility], [address], [address], [place], [address], 5 12:17:51 HbA1c (hemogl obin A1c), blood 2024 025 [email or web address] In-Office Order, Internal Use Only DO Not Attach Compendium DO Not Attach Compendium, Do Not Delete/merge, [id number] 5 11:13:25 pregnan cy test, urine 2023 024 [email or web address] In-Office Order, Internal Use Only DO Not Attach Compendium DO Not Attach Compendium, Do Not Delete/merge, [id number] 4 17:12:37 prolact in, serum 2023 024 AZAEL [facility], [address], [address], [place], [address], 4 03:06:45 TSH, ultra-s ensitiv e, serum 2023 024 AZAEL [facility], [address], [address], [place], [address], 4 03:06:43 vaginal pathoge ns panel, SKY+pro be, vaginal fluid 2023 024 AZAEL [facility], [address], [address], [place], [address], 4 20:09:03 testost erone, free + total, serum 2023 024 AZAEL [facility], [address], [address], [place], [address], 4 03:06:41 CBC w/ auto diff 2023 024 AZAEL [facility], [address], [address], [place], [address], 4 03:06:48 lh + FSH, serum 2023 024 AZAEL [facility], [address], [address], [place], [address], 4 03:06:49 estradi ol, serum 2023 024 AZAEL [facility], [address] [facility] [address], [address], [place], [address], 4 03:06:46 HbA1c (hemogl obin A1c), blood 2023 024 AZAEL [facility], [address] [facility] [address], [address], [place], [address], 4 03:06:44 urinaly sis, dipstic k 2023 024 [email or web address] In-Office Order, Internal Use Only DO Not Attach Compendium DO Not Attach Compendium, Do Not Delete/merge, [id number] 4 17:34:02 pregnan cy test, urine 2021 022 [email or web address] In-Office Order, Internal Use Only DO Not Attach Compendium DO Not Attach Compendium, Do Not Delete/merge, [id number] 2 09:45:14 Referral None recorde d. Procedures None recorde d. Surgeries None recorde d. Imaging US, pelvis, transab dominal + transva ginal 2023 024 [facility], [address] [place], [address], 4 17:05:54 Medication Orders metform in 500 mg tablet 2024 025 [facility], [address] [place], [address], 12:57:14 Patient TargetsNo targets recorded. Patient Instructions Encounter Date Encounter Id Patient Instructions Last Modified By Organization Details Last Modified Time 04/09/2024 [id number] A healthy lifestyle: care instructions Not available 04/10/2024 15:02:13 learning about planning for future Not available 04/10/2024 15:02:13 On the date of this encounter, I was immediately available to assist the resident/fellow in the care of the patient, and have reviewed and agree with the resident s findings and plan of care. ~MD jonathan [email or web address] Not available 04/09/2024 15:32:22 04/18/2025 [id number] abnormal uterine bleeding: care instructions yarauz Not [...] trial metformin yarauz Not available 04/18/2025 11:11:12 04/24/2025 [id number] threatened miscarriage: care instructions yarauz Not available 04/24/2025 13:02:10 learning about healthy weight yarauz Not available 04/24/2025 13:32:40 continue vitamins no sexual activity/pelvic rest urine preg test negative will wait on blood test f/u as previously indicated yarauz Not available 04/24/2025 13:32:09 Reason for Referral None Reported. Results Created Date Observation Date Name Description Value Unit Range Abnormal Flag Note LastModifiedBy Organization Detail LastModifiedTime 10/15/20 22 10/15/2022 pregn blu test, urine HCG negati ve Not Available In-Office Order Internal Use Only DO Not Attach Compendium DO Not Attach Compendium, Do Not Delete/merge, [id number] 10/15/2022 09:21:22 04/09/20 24 04/10/2024 MOLINA Calderon VAGIN ITIS PLUS (VG+) atopobium vaginae LOW - 0 score Not Available [facility] ([facility]) [address] [facility] [address] [facility] [address], [place], [address], 04/10/2024 20:09:03 04/09/20 24 04/10/2024 NUSWA B VAGIN ITIS PLUS (VG+) bvab 2 LOW - 0 score Not Available [facility] ([facility]) [address] [facility], [place], [address], 04/10/2024 20:09:03 04/09/20 24 04/10/2024 NUSWA B VAGIN ITIS PLUS (VG+) megasphaera 1 [...] prese nce of BV. Not Available [facility] ([facility]) [address] [facility], [place], [address], 04/10/2024 20:09:03 04/09/20 24 04/10/2024 NUA B VAGIN ITIS PLUS (VG+) reina albicans, SKY NEGATI VE negati ve Not Available [facility] ([facility]) [address] [place], [address], 04/10/2024 20:09:03 04/09/20 24 04/10/2024 NUA B VAGIN ITIS PLUS (VG+) reina glabrata, SKY NEGATI VE negati ve Not Available [facility] ([facility]) [address] [place], [address], 04/10/2024 20:09:03 04/09/20 24 04/10/2024 NUA B VAGIN ITIS PLUS (VG+) trich vag by SKY NEGATI VE negati ve Not Available [facility] ([facility]) [address] [place], [address], 04/10/2024 20:09:03 04/09/20 24 04/10/2024 NUSWA B VAGIN ITIS PLUS (VG+) chlamydia trachomatis, SKY NEGATI VE negati ve Not Available [facility] ([facility]) [address] [place], [address], 04/10/2024 20:09:03 04/09/20 24 04/10/2024 NUSWA B VAGIN ITIS PLUS (VG+) neisseria gonorrhoeae, SKY NEGATI VE negati ve Not Available [facility] ([facility]) [address] [facility], [place], [address], 04/10/2024 20:09:03 04/09/20 24 04/10/2024 TESTO STERO NE,FR EE AND TOTAL testosterone 30 NG/dL 13 Not Available [facility] ([facility]) [address] [place], [address], 04/16/2024 03:06:41 04/09/20 24 04/15/2024 TESTO STERO NE,FR EE AND TOTAL free testosterone (direct) 1.3 pg/mL 0.0-4. 2 Not Available [facility] ([facility]) [address] [place], [address], 04/16/2024 03:06:41 04/09/20 24 04/10/2024 TSH RFX ON ABNOR MAL TO FREE T4 TSH 1.680 uIU/m L 0.450- 4.500 Not Available [facility] ([facility]) [address] [place], [address], 04/16/2024 03:06:43 04/09/20 24 04/10/2024 HEMOG LOBIN A1C hemoglobin A1C 5.4 % 4.8-5. 6 Predi abete s: 5.7 - 6.4 Diabe kb: >6.4 Glyce dario contr ol for adult s with diabe kb: <7.0 Not Available [facility] ([facility]) [address] [place], [address], 04/16/2024 03:06:44 04/09/20 24 04/10/2024 PROLA CTIN prolactin 14.7 NG/mL 4.8-33 .4 Not Available [facility] ([facility]) [address] [place], [address], 04/16/2024 03:06:45 04/09/20 24 04/10/2024 ESTRA DIOL estradiol 34.6 pg/mL Adult Femal e Range Folli cular phase 12.5 - 166.0 Ovula tion phase 85.8 - 498.0 Lutea l phase 43.8 - 211.0 Postm enopa usal <6.0 - 54.7 Pregn blu 1st trime ster 215.0 - >4300 .0 George ECLIA metho dolog y Not Available [facility] ([facility]) [address] [place], [address], 04/16/2024 03:06:46 04/09/20 24 04/10/2024 CBC WITH DIFFE RENTI AL/PL ATELE T WBC 8.3 x10e3 /uL 3.4-10 .8 Not Available [facility] ([facility]) [address] [place], [address], 04/16/2024 03:06:47 04/09/20 24 04/10/2024 CBC WITH DIFFE RENTI AL/PL ATELE T RBC 4.25 x10e6 /uL 3.77-5 .28 Not Available [facility] ([facility]) [address] [place], [address], 04/16/2024 03:06:47 04/09/20 24 04/10/2024 CBC WITH DIFFE RENTI AL/PL ATELE T hemoglobin 12.0 g/dL 11.1-1 5.9 Not Available [facility] ([facility]) [address] [place], [address], 04/16/2024 03:06:47 04/09/20 24 04/10/2024 CBC WITH DIFFE RENTI AL/PL ATELE T hematocrit 37.7 % 34.0-4 6.6 Not Available [facility] ([facility]) [address] [facility], [place], [address], 04/16/2024 03:06:47 04/09/20 24 04/10/2024 CBC WITH DIFFE RENTI AL/PL ATELE T MCV 89 fL 79-97 Not Available [facility] ([facility]) [address] [facility], [place], [address], 04/16/2024 03:06:47 04/09/20 24 04/10/2024 CBC WITH DIFFE RENTI AL/PL ATELE T MCH 28.2 pg 26.6-3 3.0 Not Available [facility] ([facility]) [address] [facility], [place], [address], 04/16/2024 03:06:47 04/09/20 24 04/10/2024 CBC WITH DIFFE RENTI AL/PL ATELE T MCHC 31.8 g/dL 31.5-3 5.7 Not Available [facility] ([facility]) [address] [facility], [place], [address], 04/16/2024 03:06:47 04/09/20 24 04/10/2024 CBC WITH DIFFE RENTI AL/PL ATELE T RDW 12.2 % 11.7-1 5.4 Not Available [facility] ([facility]) [address] [facility], [place], [address], 04/16/2024 03:06:47 04/09/20 24 04/10/2024 CBC WITH DIFFE RENTI AL/PL ATELE T platelets 376 x10e3 /uL 150-45 0 Not Available [facility] ([facility]) [address] [facility], [place], [address], 04/16/2024 03:06:47 04/09/20 24 04/10/2024 CBC WITH DIFFE RENTI AL/PL ATELE T neutrophils 52 % notest ab. Not Available [facility] ([facility]) [address] [facility], [place], [address], 04/16/2024 03:06:47 04/09/20 24 04/10/2024 CBC WITH DIFFE RENTI AL/PL ATELE T lymphs 39 % notest ab. Not Available [facility] ([facility]) [address] [facility], [place], [address], 04/16/2024 03:06:47 04/09/20 24 04/10/2024 CBC WITH DIFFE RENTI AL/PL ATELE T monocytes 7 % notest ab. Not Available [facility] ([facility]) [address] [facility], [place], [address], 04/16/2024 03:06:47 04/09/20 24 04/10/2024 CBC WITH DIFFE RENTI AL/PL ATELE T eos 1 % notest ab. Not Available [facility] ([facility]) [address] [facility], [place], [address], 04/16/2024 03:06:47 04/09/20 24 04/10/2024 CBC WITH DIFFE RENTI AL/PL ATELE T basos 1 % notest ab. Not Available [facility] ([facility]) [address] [facility], [place], [address], 04/16/2024 03:06:47 04/09/20 24 04/10/2024 CBC WITH DIFFE RENTI AL/PL ATELE T neutrophils (absolute) 4.4 x10e3 /uL 1.4-7. 0 Not Available [facility] ([facility]) [address] [facility], [place], [address], 04/16/2024 03:06:47 04/09/20 24 04/10/2024 CBC WITH DIFFE RENTI AL/PL ATELE T lymphs (absolute) 3.3 x10e3 /uL 0.7-3. 1 above high normal Not Available [facility] ([facility]) [address] [facility], [place], [address], 04/16/2024 03:06:47 04/09/20 24 04/10/2024 CBC WITH DIFFE RENTI AL/PL ATELE T monocytes(ab solute) 0.5 x10e3 /uL 0.1-0. 9 Not Available [facility] ([facility]) [address] [facility], [place], [address], 04/16/2024 03:06:47 04/09/20 24 04/10/2024 CBC WITH DIFFE RENTI AL/PL ATELE T eos (absolute) 0.1 x10e3 /uL 0.0-0. 4 Not Available [facility] ([facility]) [address] [facility], [place], [address], 04/16/2024 03:06:47 04/09/20 24 04/10/2024 CBC WITH DIFFE RENTI AL/PL ATELE T baso (absolute) 0.0 x10e3 /uL 0.0-0. 2 Not Available [facility] ([facility]) [address] [facility], [place], [address], 04/16/2024 03:06:47 04/09/20 24 04/10/2024 CBC WITH DIFFE RENTI AL/PL ATELE T immature granulocytes 0 % notest ab. Not Available [facility] ([facility]) [address] [facility], [place], [address], 04/16/2024 03:06:47 04/09/20 24 04/10/2024 CBC WITH DIFFE RENTI AL/PL ATELE T immature grans (abs) 0.0 x10e3 /uL 0.0-0. 1 Not Available [facility] ([facility]) [address] [place], [address], 04/16/2024 03:06:47 04/09/20 24 04/10/2024 FSH AND LH LH 13.8 mIU/m L Adult Femal e Range Folli cular phase 2.4 - 12.6 Ovula tion phase 14.0 - 95.6 Lutea l phase 1.0 - 11.4 Postm enopa usal 7.7 - 58.5 Not Available [facility] ([facility]) [address] [facility], [place], [address], 04/16/2024 03:06:49 04/09/20 24 04/10/2024 FSH AND LH FSH 9.4 mIU/m L Adult Femal e Range Folli cular phase 3.5 - 12.5 Ovula tion phase 4.7 - 21.5 Lutea l phase 1.7 - 7.7 Postm enopa usal 25.8 - 134.8 Not Available [facility] ([facility]) [address] [facility], [place], [address], 04/16/2024 03:06:49 04/09/20 24 04/09/2024 urina lysis , dipst ick Leukocytes Negati ve Not Available In-Office Order Internal Use Only DO Not Attach Compendium DO Not Attach Compendium, Do Not Delete/merge, [id number] 04/09/2024 17:12:42 04/09/20 24 04/09/2024 urina lysis , dipst ick Nitrite negati ve Not Available In-Office Order Internal Use Only DO Not Attach Compendium DO Not Attach Compendium, Do Not Delete/merge, [id number] 04/09/2024 17:12:42 04/09/20 24 04/09/2024 urina lysis , dipst ick Urobilinogen .2 Not Available In-Of fice Order Internal Use Only DO Not Attach Compendium DO Not Attach Compendium, Do Not Delete/merge, [id number] 04/09/2024 17:12:42 04/09/20 24 04/09/2024 urina lysis , dipst ick Protein Negati ve Not Available In-Office Order Internal Use Only DO Not Attach Compendium DO Not Attach Compendium, Do Not Delete/merge, [facility] 04/09/2024 17:12:42 04/09/20 24 04/09/2024 urina lysis , dipst ick pH 7.5 Not Available In-Office Order Internal Use Only DO Not Attach Compendium DO Not Attach Compendium, Do Not Delete/merge, [facility] 04/09/2024 17:12:42 04/09/20 24 04/09/2024 urina lysis , dipst ick Blood Small Not Available In-Office Order Internal Use Only DO Not Attach Compendium DO Not Attach Compendium, Do Not Delete/merge, [facility] 04/09/2024 17:12:42 04/09/20 24 04/09/2024 urina lysis , dipst ick Specific Ribera 1.020 Not Available In-Off ice Order Internal Use Only DO Not Attach Compendium DO Not Attach Compendium, Do Not Delete/merge, [facility] 04/09/2024 17:12:42 04/09/20 24 04/09/2024 urina lysis , dipst ick Ketone Negati ve Not Available In-Office Order Internal Use Only DO Not Attach Compendium DO Not Attach Compendium, Do Not Delete/merge, [facility] 04/09/2024 17:12:42 04/09/20 24 04/09/2024 urina lysis , dipst ick Bilirubin Negati ve Not Available In-Office Order Internal Use Only DO Not Attach Compendium DO Not Attach Compendium, Do Not Delete/merge, [facility] 04/09/2024 17:12:42 04/09/20 24 04/09/2024 urina lysis , dipst ick Glucose Negati ve Not Available In-Office Order Internal Use Only DO Not Attach Compendium DO Not Attach Compendium, Do Not Delete/merge, [facility] 04/09/2024 17:12:42 04/09/20 24 04/09/2024 pregn blu test, urine HCG negati ve Not Available In-Office Order Internal Use Only DO Not Attach Compendium DO Not Attach Compendium, Do Not Delete/merge, [facility] 04/09/2024 15:16:50 11/26/19 25 11/26/2024 Chlam ydia trach omati s and Neiss eria gonor rhoea e rRNA panel - Speci men by SKY with probe detec tion chlamydia trachomatis, PCR Negati ve text: negati ve Not Available Not Available 05/20/2025 17:30:25 11/26/19 25 11/26/2024 Chlam ydia trach omati s and Neiss eria gonor rhoea e rRNA panel - Speci men by SKY with probe detec tion neisseria gonorrhoeae, PCR Negati ve text: negati ve Not Available Not Available 05/20/2025 17:30:25 11/26/19 25 11/26/2024 Trich omona s vagin lizzy rRNA [Pres ence] in Speci men by SKY with probe detec tion trichomonas vaginalis ribosomal RNA (rrna) Negati ve text: negati ve Not Available Not Available 05/20/2025 17:30:24 11/26/19 25 11/26/2024 Testo stero ne Free/ Testo stero ne.to dimitri in Serum or Plasm a testosterone , total text: 2-45 For addit ional infor svetlana [facility] e refer to http: //[facility] cesar cole.que stdia gnost ics.c om/fa q/ Total Testo stero neLCM [facility] Q[facility] (This link is being provi ded for infor alma helton/ educa malena l purpo ses only. ) This test was devel oped and its addie tical perfo rmanc e raymon cteri stics have been deter mined by [facility] [place]. It has not been clear ed or appro suman by the U.S. Food and Drug Admin istra tion. This assay has been valid ated pursu ant to the CLIA regul ation s and is used for clini mario purpo ses. Not Available Not Available 05/20/2025 17:30:24 11/26/19 25 11/26/2024 Testo stero ne Free/ Testo stero ne.to dimitri in Serum or Plasm a testosterone , free text: 0.1-6. 4 This test was devel oped and its addie tical perfo rmanc e raymon cteri stics have been deter mined by [facility] [place], [place]. It has not been clear ed or appro suman by the U.S. Food and Drug Admin istra tion. This assay has been valid ated pursu ant to the CLIA regul ation s and is used for clini mario purpo ses. Perfo rming Organ izati on Infor matio n: Site ID: AMD Name: [facility] tute Addre ss: [id number] [facility] [employer] [place], [place] Direc tor: Marcelo Avila MD PhD Not Available Not Available 05/20/2025 17:30:24 11/26/19 25 11/26/2024 Thyro tropi n [Unit s/vol ume] in Serum or Plasm a TSH text: 0.30-5 .33 Not Available Not Available 05/20/2025 17:30:24 11/26/19 25 11/26/2024 Folli tropi n [Unit s/vol ume] in Serum or Plasm a FSH This assay was perfo rmed using [facility] [employer] n reage nts and test kits. Value s obtai jose with other assay metho ds or kits canno t be used inter [facility] . Femal es Folli cular : 3.5-1 2.5 mIU/m L Ovula tion: 4.7-2 1.5 mIU/m L Lutea l: 1.7-7 .7 mIU/m L Postm enopa use: 25.8- 134.8 mIU/m L Not Available Not Available 05/20/2025 17:30:24 11/26/19 25 11/26/2024 Lutro pin [Unit s/vol ume] in Serum or Plasm a LH This assay was perfo rmed using [facility] [employer] [facility] [employer] reage nts and test kits. Value s obtai jose with other assay metho ds or kits canno t be used inter [facility] . Femal es Mid-F ollic ular: 2.4-1 2.6 mIU/m L Mid-C ycle: 14.0- 95.6 mIU/m L Mid-L uteal : 1.0-1 1.4 mIU/m L Postm enopa use: 7.7-5 8.5 mIU/m L Not Available Not Available 05/20/2025 17:30:24 11/26/19 25 11/26/2024 Prola ctin [Mass /volu me] in Serum or Plasm a prolactin, total text: 4.79-2 3.30 high This assay was perfo rmed using [facility] [employer] [facility] [employer] reage nts and test kits. Value s obtai jose with other assay metho ds or kits canno t be used inter [facility] . Not Available Not Available 05/20/2025 17:30:24 11/26/19 25 11/26/2024 Estra diol (E2) [Mass /volu me] in Serum or Plasm a estradiol This assay was perfo rmed using [facility] [employer] [facility] [employer] reage nts and test kits. Value s obtai jose with other assay metho ds or kits canno t be used inter [facility] . Femal e Estra diol Range s: Folli cular phase 12.4- 233 pg/mL Ovula tion phase 41.0- 398 pg/mL Lutea l phase 22.3- 341 pg/mL Postm enopa usal <5-13 8 pg/mL Healt hy Pregn ant Women 1st Trime ster 154-3 243 pg/mL 2nd Trime ster 1561- 19244 pg/mL 3rd Trime ster 8525- >3000 0 pg/mL Not Available Not Available 05/20/2025 17:30:24 11/26/19 25 11/26/2024 Proge stero ne [Mass /volu me] in Serum or Plasm a progesterone This assay was perfo rmed using [facility] [employer] [facility] [employer] reage nts and test kits. Value s obtai jose with other assay metho ds or kits canno t be used inter [facility] . Femal e Proge stero ne Range s: Folli cular phase 0.06- 0.89 ng/mL Ovula tion phase 0.12- 12.00 ng/mL Lutea l phase 1.83- 23.90 ng/mL Postm enopa usal <0.05 -0.13 ng/mL Healt hy Pregn ant Women 1st Trime ster 11.0- 44.30 2nd Trime ster 25.40 -83.3 0 3rd Trime ster 58.70 -214. 00 Not Available Not Available 05/20/2025 17:30:24 11/26/19 25 11/26/2024 Hemog lobin A1c/H emogl obin. total in Blood hemoglobin A1C/hemoglob in.total in blood text: 4.0-5. 6 The Ameri can Diabe kb [...] >8.0% Actio n sugge sted Not Available Not Available 05/20/2025 17:30:24 11/26/19 25 11/26/2024 CBC W Auto Diffe renti al panel - Blood WBC text: 3.5-10 .5 Not Available Not Available 05/20/2025 17:30:24 11/26/19 25 11/26/2024 CBC W Auto Diffe renti al panel - Blood RBC text: (based on docume nted legal sex) 3.80-5 .20 Not Available Not Available 05/20/2025 17:30:24 11/26/19 25 11/26/2024 CBC W Auto Diffe renti al panel - Blood HGB text: (based on docume nted legal sex) 11.6-1 5.4 Not Available Not Available 05/20/2025 17:30:24 11/26/19 25 11/26/2024 CBC W Auto Diffe renti al panel - Blood HCT text: (based on docume nted legal sex) 34.0-4 5.0 Not Available Not Available 05/20/2025 17:30:24 11/26/19 25 11/26/2024 CBC W Auto Diffe renti al panel - Blood MCV text: 80.0-9 9.0 Not Available Not Available 05/20/2025 17:30:24 11/26/19 25 11/26/2024 CBC W Auto Diffe renti al panel - Blood MCH text: 27.0-3 4.0 Not Available Not Available 05/20/2025 17:30:24 11/26/19 25 11/26/2024 CBC W Auto Diffe renti al panel - Blood MCHC text: 32.0-3 5.5 Not Available Not Available 05/20/2025 17:30:24 11/26/19 25 11/26/2024 CBC W Auto Diffe renti al panel - Blood RDW text: 11.0-1 5.0 Not Available Not Available 05/20/2025 17:30:24 11/26/19 25 11/26/2024 CBC W Auto Diffe renti al panel - Blood plt text: 150-40 0 Not Available Not Available 05/20/2025 17:30:24 11/26/19 25 11/26/2024 CBC W Auto Diffe renti al panel - Blood MPV text: 8.8-12 .1 Not Available Not Available 05/20/2025 17:30:24 11/26/19 25 11/26/2024 CBC W Auto Diffe renti al panel - Blood neutrophils text: 34.0-7 3.0 Not Available Not Available 05/20/2025 17:30:24 11/26/19 25 11/26/2024 CBC W Auto Diffe renti al panel - Blood lymphocytes text: 15.0-5 0.0 Not Available Not Available 05/20/2025 17:30:24 11/26/19 25 11/26/2024 CBC W Auto Diffe renti al panel - Blood monocytes text: 1.0-15 .0 Not Available Not Available 05/20/2025 17:30:24 11/26/19 25 11/26/2024 CBC W Auto Diffe renti al panel - Blood eosinophils text: 0.0-8. 0 Not Available Not Available 05/20/2025 17:30:24 11/26/19 25 11/26/2024 CBC W Auto Diffe renti al panel - Blood basophils text: 0.0-2. 0 Not Available Not Available 05/20/2025 17:30:24 11/26/19 25 11/26/2024 CBC W Auto Diffe renti al panel - Blood immature granulocytes text: no define d refere nce range Immat ure Granu locyt es (IG) repre sents autom ated enume ratio n of Metam yeloc ytes, Myelo cytes and Promy elocy kb when IG is < 5%. Blast s are not inclu ded in IG and repor eliu separ ately if prese nt. Not Available Not Available 05/20/2025 17:30:24 11/26/19 25 11/26/2024 CBC W Auto Diffe renti al panel - Blood absolute neutrophils text: 1.5-8. 0 Not Available Not Available 05/20/2025 17:30:24 11/26/19 25 11/26/2024 CBC W Auto Diffe renti al panel - Blood absolute lymphocytes text: 1.0-4. 0 Not Available Not Available 05/20/2025 17:30:24 11/26/19 25 11/26/2024 CBC W Auto Diffe renti al panel - Blood absolute monocytes text: 0.2-1. 0 Not Available Not Available 05/20/2025 17:30:24 11/26/19 25 11/26/2024 CBC W Auto Diffe renti al panel - Blood absolute eosinophils text: 0.0-0. 6 Not Available Not Available 05/20/2025 17:30:24 11/26/19 25 11/26/2024 CBC W Auto Diffe renti al panel - Blood absolute basophils text: 0.0-0. 3 Not Available Not Available 05/20/2025 17:30:24 11/26/19 25 11/26/2024 CBC W Auto Diffe renti al panel - Blood absolute immature granulocytes text: 0.00-0 .10 Refer ence range s for nonbi nary/ inter sex or unspe cifie d gende r patie nts have not been estab lishe d. Pleas e refer to the follo wing table for range s estab lishe d for cisge nder patie nts and evalu ate in the clini mario pa xt of the indiv idual patie nt: https :[email or web address] elena book. [email or web address].or g/Gen derX Not Available Not Available 05/20/2025 17:30:24 04/18/20 25 04/19/2025 HCG QL W/REF RABIA TO HCG QN HCG,beta subunit,qual POSITI VE mIU/m L negati ve<6 abnormal Not Available [facility] ([facility]) [address] [facility], [place], [address], 04/19/2025 08:26:38 04/18/20 25 04/19/2025 HCG,B ETA SUBUN IT,QN T,SER UM HCG,beta subunit,qnt, serum 17 mIU/m L Femal e (Non- pregn ant) 0 - 5 (Post menop ausal ) 0 - 8 Femal e (Preg nant) Weeks of Gesta tion 3 6 - 71 4 10 - 750 5 827 - 7805 6 354 - 10164 7 3043 -2403 63 8 53718 -3364 71 9 96911 -0282 10 10 09972 -6529 77 12 20200 -5010 12 14 60059 - 10415 15 28320 - 45757 16 6952 - 72708 17 8137 - 65858 18 7700 - 36286 George ECLIA metho dolog y Not Available [facility] ([facility]) [address] [facility], [place], [address], 04/19/2025 08:26:40 04/18/20 25 04/18/2025 HbA1c (hemo globi n A1c), blood HbA1C 5.1 % Not Available In-Office Order Internal Use Only DO Not Attach Compendium DO Not Attach Compendium, Do Not Delete/merge, [id number] 04/18/2025 10:54:57 04/18/2004/18/2025 pregn blu test, urine HCG negati ve Not Available In-Office Order Internal Use Only DO Not Attach Compendium DO Not Attach Compendium, Do Not Delete/merge, [id number] 04/18/2025 10:25:49 04/24/20 25 04/25/2025 HCG,B ETA SUBUN IT, QNT HCG,beta subunit,qnt, serum <1 mIU/m L Femal e (Non- pregn ant) 0 - 5 (Post menop ausal ) 0 - 8 Femal e (Preg nant) Weeks of Gesta tion 3 6 - 71 4 10 - 750 5 543 - 0775 6 654 - 18280 7 3475 -3483 63 8 82097 -1868 71 9 90042 -6640 10 10 34919 -6035 77 12 90029 -0985 12 14 30881 - 85478 15 66856 - 81950 16 4504 - 68660 17 5677 - 89567 18 1609 - 60243 George ECLIA metho dolog y Not Available [facility] ([facility]) [address] [facility], [place], [address], 04/25/2025 08:29:21 04/24/2004/24/2025 pregn blu test, urine HCG negati ve Not Available In-Office Order Internal Use Only DO Not Attach Compendium DO Not Attach Compendium, Do Not Delete/merge, 04/24/2025 13:02:04 04/24/2004/24/2025 urina lysis , dipst ick Leukocytes Negati ve Not Available In-Office Order Internal Use Only DO Not Attach Compendium DO Not Attach Compendium, Do Not Delete/merge, 04/24/2025 13:02:05 04/24/20 25 04/24/2025 urina lysis , dipst ick Nitrite negati ve Not Available In-Office Order Internal Use Only DO Not Attach Compendium DO Not Attach Compendium, Do Not Delete/merge, 04/24/2025 13:02:05 04/24/20 25 04/24/2025 urina lysis , dipst ick Urobilinogen .2 Not Available In-Of fice Order Internal Use Only DO Not Attach Compendium DO Not Attach Compendium, Do Not Delete/merge, 04/24/2025 13:02:05 04/24/20 25 04/24/2025 urina lysis , dipst ick Protein Negati ve Not Available In-Office Order Internal Use Only DO Not Attach Compendium DO Not Attach Compendium, Do Not Delete/merge, 04/24/2025 13:02:05 04/24/20 25 04/24/2025 urina lysis , dipst ick pH 5.5 Not Available In-Office Order Internal Use Only DO Not Attach Compendium DO Not Attach Compendium, Do Not Delete/merge, [facility] 04/24/2025 13:02:05 04/24/20 25 04/24/2025 urina lysis , dipst ick Blood Negati ve Not Available In-Office Order Internal Use Only DO Not Attach Compendium DO Not Attach Compendium, Do Not Delete/merge, [facility] 04/24/2025 13:02:05 04/24/20 25 04/24/2025 urina lysis , dipst ick Specific Ribera 1.010 Not Available In-Off ice Order Internal Use Only DO Not Attach Compendium DO Not Attach Compendium, Do Not Delete/merge, [facility] 04/24/2025 13:02:05 04/24/20 25 04/24/2025 urina lysis , dipst ick Ketone Negati ve Not Available In-Office Order Internal Use Only DO Not Attach Compendium DO Not Attach Compendium, Do Not Delete/merge, [facility] 04/24/2025 13:02:05 04/24/20 25 04/24/2025 urina lysis , dipst ick Bilirubin Negati ve Not Available In-Office Order Internal Use Only DO Not Attach Compendium DO Not Attach Compendium, Do Not Delete/merge, [facility] 04/24/2025 13:02:05 04/24/20 25 04/24/2025 urina lysis , dipst ick Glucose Negati ve Not Available In-Office Order Internal Use Only DO Not Attach Compendium DO Not Attach Compendium, Do Not Delete/merge, [facility] 04/24/2025 13:02:05 04/24/20 25 04/24/2025 urina lysis , dipst ick Appearance Clear Not Available In-Offi ce Order Internal Use Only DO Not Attach Compendium DO Not Attach Compendium, Do Not Delete/merge, [facility] 04/24/2025 13:02:05 04/24/20 25 04/24/2025 urina lysis , dipst ick Color Pale Yellow Not Available In-Office Order Internal Use Only DO Not Attach Compendium DO Not Attach Compendium, Do Not Delete/merge, [id number] 04/24/2025 13:02:05 05/20/20 25 05/20/2025 Chori ogona dotro pin.b eta subun it [Unit s/vol ume] in Serum or Plasm a B-HCG text: 0.0-4. 9 high This assay was perfo rmed using [employer] ratio n reage nts and test kits. Value s obtai jose with other assay metho ds or kits canno t be used inter [facility] . Refer ence Range s: Non-p regna nt, preme nopau otto women : 0.0-4 .9 mIU/m L Postm enopa usal women : 0.0-7 .0 mIU/m L Chelsi l Pregn blu: Gesta malena l Age bHCG Conc. - mIU/m L 3 Weeks 5.8 - 71.7 4 Weeks 9.5 - 750 5 Weeks 217-7 138 6 Weeks 158 - 31,79 5 7 Weeks 3,697 - 162,5 63 8 Weeks 32,06 5 - 149,5 71 9 Weeks 63,80 3 - 151,4 10 10 Weeks 46,50 9 - 186,9 77 12 Weeks 27,83 2 - 210,6 12 14 Weeks 13,95 0 - 62,53 0 15 Weeks 12,03 9 - 70,97 1 16 Weeks 9,040 - 56,45 1 17 Weeks 8,175 - 55,86 8 18 Weeks 8,099 - 58,17 6 Not Available Not Available 06/18/2025 14:46:55 05/22/20 25 05/22/2025 Chori ogona dotro pin.b eta subun it [Unit s/vol ume] in Serum or Plasm a B-HCG text: 0.0-4. 9 high This assay was perfo rmed using [employer] ratio n reage nts and test kits. Value s obtai jose with other assay metho ds or kits canno t be used inter [facility] . Refer ence Range s: Non-p regna nt, preme nopau otto women : 0.0-4 .9 mIU/m L Postm enopa usal women : 0.0-7 .0 mIU/m L Chelsi l Pregn blu: Javona malena l Age bHCG Conc. - mIU/m L 3 Weeks 5.8 - 71.7 4 Weeks 9.5 - 750 5 Weeks 217-7 138 6 Weeks 158 - 31,79 5 7 Weeks 3,697 - 162,5 63 8 Weeks 32,06 5 - 149,5 71 9 Weeks 63,80 3 - 151,4 10 10 Weeks 46,50 9 - 186,9 77 12 Weeks 27,83 2 - 210,6 12 14 Weeks 13,95 0 - 62,53 0 15 Weeks 12,03 9 - 70,97 1 16 Weeks 9,040 - 56,45 1 17 Weeks 8,175 - 55,86 8 18 Weeks 8,099 - 58,17 6 Not Available Not Available 06/18/2025 14:46:55 06/10/20 25 06/11/2025 Urina lysis compl ete panel - Urine collection method - specimen URINE CLEAN CATCH Not Available Not Available 14:46:36 06/10/20 25 06/11/2025 Urina lysis compl ete panel - Urine color of urine COLORL ESS Not Available Not Available 14:46:36 06/10/20 25 06/11/2025 Urina lysis compl ete panel - Urine clarity of urine CLEAR Not Available Not Available 06/07 14:46:36 06/10/20 25 06/11/2025 Urina lysis compl ete panel - Urine specific gravity of urine 1.011 low: 1.001h igh: 1.03 Not Available Not Available 06/18/2025 14:46:36 06/10/20 25 06/11/2025 Urina lysis compl ete panel - Urine pH of urine 5.5 low: 5high: 9 Not Available Not Available 06/18/2025 14:46:36 06/10/20 25 06/11/2025 Urina lysis compl ete panel - Urine leukocytes [#/volume] in urine by test strip NEGATI VE text: negati ve Not Available Not Available 06/18/2025 14:46:36 06/10/20 25 06/11/2025 Urina lysis compl ete panel - Urine nitrite [presence] in urine NEGATI VE text: negati ve Not Available Not Available 06/18/2025 14:46:36 06/10/20 25 06/11/2025 Urina lysis compl ete panel - Urine protein [mass/volume ] in urine by test strip NEGATI VE text: <30 mg/dL Not Available Not Available 06/18/2025 14:46:36 06/10/20 25 06/11/2025 Urina lysis compl ete panel - Urine glucose [mass/volume ] in urine NORMAL text: normal mg/dL Not Available Not Available 06/18/2025 14:46:36 06/10/20 25 06/11/2025 Urina lysis compl ete panel - Urine ketones [mass/volume ] in urine by test strip NEGATI VE text: negati ve mg/dL Not Available Not Available 06/18/2025 14:46:36 06/10/20 25 06/11/2025 Urina lysis compl ete panel - Urine urobilinogen [units/volum e] in urine by test strip NORMAL text: normal mg/dL Not Available Not Available 06/18/2025 14:46:36 06/10/20 25 06/11/2025 Urina lysis compl ete panel - Urine bilirubin.to dimitri [mass/volume ] in urine NEGATI VE text: negati ve mg/dL Not Available Not Available 06/18/2025 14:46:36 06/10/20 25 06/11/2025 Urina lysis compl ete panel - Urine erythrocytes [#/volume] in urine by automated test strip NEGATI VE text: negati ve Not Available Not Available 06/18/2025 14:46:36 06/10/20 25 06/11/2025 Urina lysis compl ete panel - Urine mucus [#/area] in urine sediment by microscopy low power field RARE text: /lpf Not Available Not Available 06/18/2025 14:46:36 06/10/20 25 06/11/2025 Urina lysis compl ete panel - Urine leukocytes [#/area] in urine sediment by microscopy high power field 1 text: <6 /hpf Not Available Not Available 06/18/2025 14:46:36 06/10/20 25 06/11/2025 Urina lysis compl ete panel - Urine erythrocytes [#/area] in urine sediment by microscopy high power field 2 text: <6 /hpf Not Available Not Available 06/18/2025 14:46:36 06/10/20 25 06/11/2025 Urina lysis compl ete panel - Urine epithelial cells.squamo us [#/area] in urine sediment by microscopy high power field RARE text: /hpf Not Available Not Available 06/18/2025 14:46:36 06/10/20 25 06/11/2025 aPTT in Plate let poor plasm a by Coagu latio n assay APTT in platelet poor plasma by coagulation assay 31.3 text: 25.1 - 36.5 sec Not Available Not Available 06/18/2025 14:46:36 06/10/20 25 06/11/2025 Proth rombi n time (PT) prothrombin time (PT) 11.3 text: 10.2 - 12.9 sec Not Available Not Available 06/18/2025 14:46:36 06/10/20 25 06/11/2025 Proth rombi n time (PT) INR in platelet poor plasma by coagulation assay 1 Recom brijesh d INR Thera peuti c Goals : 2.0-3 .0 Routi ne Thera py 2.5-3 .5 Mecha nical Prost hetic Valve s (High Risk) Not Available Not Available 06/18/2025 14:46:36 06/10/20 25 06/11/2025 Compr ehens ronan metab olic 1999 panel - Serum or Plasm a glucose [mass/volume ] in serum or plasma 92 text: 70 - 99 mg/dL Not Available Not Available 06/18/2025 14:46:36 06/10/20 25 06/11/2025 Compr ehens ronan metab olic 2000 panel - Serum or Plasm a urea nitrogen [mass/volume ] in serum or plasma 12 text: 7 - 18 mg/dL Not Available Not Available 06/18/2025 14:46:36 06/10/20 25 06/11/2025 Compr ehens ronan metab olic 2000 panel - Serum or Plasm a creatinine [mass/volume ] in serum or plasma 0.74 text: 0.55 - 1.02 mg/dL Not Available Not Available 06/18/2025 14:46:36 06/10/20 25 06/11/2025 Compr ehens ronan metab olic 2000 panel - Serum or Plasm a sodium [moles/volum e] in serum or plasma 137 text: 136 - 145 mmol/L Not Available Not Available 06/18/2025 14:46:36 06/10/2006/11/2025 Compr ehens ronan metab olic 1999 panel - Serum or Plasm a potassium [moles/volum e] in serum or plasma 3.3 text: 3.5 - 5.1 mmol/L low Not Available Not Available 06/18/2025 14:46:36 06/10/20 25 06/11/2025 Compr ehens ronan metab olic 1999 panel - Serum or Plasm a chloride [moles/volum e] in serum or plasma 109 text: 97 - 115 mmol/L Not Available Not Available 06/18/2025 14:46:36 06/10/20 25 06/11/2025 Compr ehens ronan metab olic 1999 panel - Serum or Plasm a carbon dioxide, total [moles/volum e] in serum or plasma 20.8 text: 21 - 32 mmol/L low Not Available Not Available 06/18/2025 14:46:36 06/10/20 25 06/11/2025 Compr [employer] ronan metab olic 1999 panel - Serum or Plasm a calcium [mass/volume ] in serum or plasma 9.1 text: 8.5 - 10.1 mg/dL Not Available Not Available 06/18/2025 14:46:36 06/10/20 25 06/11/2025 Compr [employer] ronan metab olic 1999 panel - Serum or Plasm a bilirubin.to dimitri [mass/volume ] in serum or plasma 0.3 text: 0.2 - 1.2 mg/dL THIS ASSAY IS NOT RECOM BRIJESH D FOR PATIE NTS UNDER GOING TREAT MENT WITH ELTRO MBOPA G DUE TO THE POTEN TIAL FOR FALSE LY ELEVA ELIU RESUL TS. Not Available Not Available 06/18/2025 14:46:36 06/10/20 25 06/11/2025 Compr [employer] ronan metab olic 1999 panel - Serum or Plasm a protein [mass/volume ] in serum or plasma 7.7 text: 6.4 - 8.2 g/dL Not Available Not Available 06/18/2025 14:46:36 06/10/20 25 06/11/2025 [facility] ehens ronan metab olic 1999 panel - Serum or Plasm a albumin [mass/volume ] in serum or plasma 3.3 text: 3.4 - 5.0 g/dL low Not Available Not Available 06/18/2025 14:46:36 06/10/20 25 06/11/2025 [facility]Gun[employer]io ronan [facility] 1999 panel - Serum or Plasm a aspartate aminotransfe rase [enzymatic activity/vol ume] in serum or plasma 12 U/L low: 15U/Lh igh: 37U/L low Not Available Not Available 06/18/2025 14:46:36 06/10/20 25 06/11/2025 [facility] [employer] ronan [facility] 1999 panel - Serum or Plasm a alanine aminotransfe rase [enzymatic activity/vol ume] in serum or plasma 12 U/L low: 14U/Lh igh: 55U/L low Not Available Not Available 06/18/2025 14:46:36 06/10/20 25 06/11/2025 [facility] [facility] 1999 panel - Serum or Plasm a alkaline phosphatase [enzymatic activity/vol ume] in serum or plasma 66 U/L low: 50U/Lh igh: 136U/L Not Available Not Available 06/18/2025 14:46:36 06/10/20 25 06/11/2025 [facility] [employer] [facility] 1999 panel - Serum or Plasm a anion gap in serum or plasma by calculation 7.2 text: 2 - 10 mmol/L Not Available Not Available 06/18/2025 14:46:36 06/10/20 25 06/11/2025 [facility] [employer] [facility] 1999 panel - Serum or Plasm a urea nitrogen/cre atinine [mass ratio] in serum or plasma 16.1 low: 6high: 26 Not Available Not Available 06/18/2025 14:46:36 06/10/20 25 06/11/2025 [facility] [employer] [facility] 1999 panel - Serum or Plasm a albumin/glob ulin [mass ratio] in serum or plasma 0.8 text: 1.0 - 2.0 ratio low Not Available Not Available 06/18/2025 14:46:36 06/10/20 25 06/11/2025 [facility] [employer] [facility] 2000 panel - Serum or Plasm a glomerular filtration rate [volume rate/area] in serum, plasma or blood by creatinine-b ased formula (CKD-epi 2020)/1.73 sq M >90 text: >90 mL/min /1.73 M2 NOTE: eGFR is not calcu lated for patie nts <18 years of age or gende r unkno wn. This is an estim ated GFR calcu latio n using the new CKD EPI creat inine equat ion witho ut race and so does not requi re a corre ction facto r for race. This estim ated GFR shoul d not be used for calcu latin g drug doses . Not Available Not Available 06/18/2025 14:46:36 06/10/2006/11/2025 Compr ehens ronan metab olic 1999 panel - Serum or Plasm a interpretati on and review of laboratory results Abnorm al Not Available Not Available 14:46:36 06/10/20 25 06/11/2025 Chori ogona dotro pin.b eta subun it [Unit s/vol ume] in Serum or Plasm a choriogonado tropin.beta subunit [units/volum e] in serum or plasma 95085 text: mIU/mL WEEKS OF PREGN BLU REFER ENCE RANGE S Non-p regna nt femal e < or = 2 0.2 - 1 5 - 50 1 - 2 50 - 500 2 - 3 100 - 5000 3 - 4 500 - 10,00 0 4 - 5 1000 - 50,00 0 5 - 6 10,00 0 - 100,0 00 6 - 8 15,00 0 - 200,0 00 2 - 3 MONTH S 10,00 0 - 100,0 00 Not Available Not Available 06/18/2025 14:46:36 06/10/20 25 06/11/2025 CBC W Auto Diffe murphyti al panel - Blood leukocytes [#/volume] in blood by automated count 10.91 text: 4.5 - 11.0 x10'3/ uL Not Available Not Available 06/18/2025 14:46:36 06/10/20 25 06/11/2025 CBC W Auto Diffe renti al panel - Blood erythrocytes [#/volume] in blood by automated count 4.11 text: 4.20 - 5.40 x10'6/ uL low Not Available Not Available 06/18/2025 14:46:36 06/10/20 25 06/11/2025 CBC W Auto Diffe renti al panel - Blood hemoglobin [mass/volume ] in blood 10.6 text: 12.0 - 16.0 g/dL low Not Available Not Available 06/18/2025 14:46:36 06/10/20 25 06/11/2025 CBC W Auto Diffe renti al panel - Blood hematocrit [volume fraction] of blood by calculation 32.6 % low: 38%hig h: 48% low Not Available Not Available 06/18/2025 14:46:36 06/10/20 25 06/11/2025 CBC W Auto Diffe renti al panel - Blood MCV [entitic mean volume] in red blood cells 79.3 text: 81.0 - 99.0 fL low Not Available Not Available 06/18/2025 14:46:36 06/10/20 25 06/11/2025 CBC W Auto Diffe renti al panel - Blood MCH [entitic mass] 25.8 pg low: 27pghi gh: 31pg low Not Available Not Available 06/18/2025 14:46:36 06/10/20 25 06/11/2025 CBC W Auto Diffe renti al panel - Blood MCHC [entitic mass/volume] in red blood cells 32.5 text: 32.0 - 36.0 g/dL Not Available Not Available 06/18/2025 14:46:36 06/10/20 25 06/11/2025 CBC W Auto Diffe renti al panel - Blood RDW 16.3 % low: 11.5%h igh: 14.5% high Not Available Not Available 06/18/2025 14:46:36 06/10/20 25 06/11/2025 CBC W Auto Diffe renti al panel - Blood platelets [#/volume] in blood 425 text: 130 - 400 x10'3/ uL high Not Available Not Available 06/18/2025 14:46:36 06/10/20 25 06/11/2025 CBC W Auto Diffe renti al panel - Blood platelet [entitic mean volume] in blood 10 text: 9.3 - 12.2 fL Not Available Not Available 06/18/2025 14:46:36 08/04/20 25 06/11/2025 CBC W Auto Diffe renti al panel - Blood differential cell count method - blood AUTOMA ELIU DIFFER ENTIAL Not Available Not Available 14:46:36 06/10/20 25 06/11/2025 CBC W Auto Diffe renti al panel - Blood neutrophils/ leukocytes in blood by automated count 60.6 % Not Available Not Available 06/07 14:46:36 06/10/20 25 06/11/2025 CBC W Auto Diffe renti al panel - Blood lymphocytes/ leukocytes in blood by automated count 30.8 % Not Available Not Available 06/07 14:46:36 06/10/20 25 06/11/2025 CBC W Auto Diffe renti al panel - Blood monocytes/le ukocytes in blood by automated count 7.5 % Not Available Not Available 06/07 14:46:36 06/10/20 25 06/11/2025 CBC W Auto Diffe renti al panel - Blood eosinophils/ leukocytes in blood by automated count 0.5 % Not Available Not Available 06/07 14:46:36 06/10/20 25 06/11/2025 CBC W Auto Diffe renti al panel - Blood basophils/le ukocytes in blood by automated count 0.4 % Not Available Not Available 06/07 14:46:36 06/10/20 25 06/11/2025 CBC W Auto Diffe renti al panel - Blood immature granulocytes /leukocytes in blood by automated count 0.2 % Not Available Not Available 06/07 14:46:36 06/10/20 25 06/11/2025 CBC W Auto Diffe renti al panel - Blood neutrophils [#/volume] in blood 6.61 text: 1.80 - 7.70 x10'3/ uL Not Available Not Available 06/18/2025 14:46:36 06/10/20 25 06/11/2025 CBC W Auto Diffe renti al panel - Blood lymphocytes [#/volume] in blood 3.36 text: 1.00 - 4.80 x10'3/ uL Not Available Not Available 06/18/2025 14:46:36 06/10/20 25 06/11/2025 CBC W Auto Diffe renti al panel - Blood monocytes [#/volume] in blood 0.82 text: 0.24 - 0.86 x10'3/ uL Not Available Not Available 06/18/2025 14:46:36 06/10/2006/11/2025 CBC W Auto Diffe renti al panel - Blood eosinophils [#/volume] in blood 0.06 text: 0.04 - 0.36 x10'3/ uL Not Available Not Available 06/18/2025 14:46:36 06/10/20 25 06/11/2025 CBC W Auto Diffe renti al panel - Blood basophils [#/volume] in blood 0.04 text: 0.01 - 0.08 x10'3/ uL Not Available Not Available 06/18/2025 14:46:36 06/10/2006/11/2025 CBC W Auto Diffe renti al panel - Blood immature granulocytes [#/volume] in blood 0.02 text: 0.00 - 0.49 x10'3/ uL Not Available Not Available 06/18/2025 14:46:36 06/10/2006/11/2025 CBC W Auto Diffe renti al panel - Blood interpretati on and review of laboratory results Abnorm al Not Available Not Available 14:46:36 06/10/2006/11/2025 Lipas e [Enzy matic activ ity/v olume ] in Serum or Plasm a lipase [enzymatic activity/vol ume] in serum or plasma 46 text: 13 - 75 units/ L Not Available Not Available 06/18/2025 14:46:35 06/10/2006/11/2025 Chlam ydia trach omati s and Neiss eria gonor rhoea e rRNA panel - Urine by SKY with probe detec tion chlamydia trachomatis DNA [presence] in specimen by SKY with probe detection Negati ve text: negati ve Not Available Not Available 06/18/2025 14:46:32 06/10/20 25 06/11/2025 Chlam ydia trach omati s and Neiss eria gonor rhoea e rRNA panel - Urine by SKY with probe detec tion neisseria gonorrhoeae DNA [presence] in specimen by SKY with probe detection Negati ve text: negati ve Not Available Not Available 06/18/2025 14:46:32 06/10/2006/11/2025 Chlam ydia trach omati s and Neiss eria gonor rhoea e rRNA panel - Urine by SKY with probe detec tion trichomonas vaginalis ribosomal RNA (rrna) Negati ve text: negati ve Not Available Not Available 06/18/2025 14:46:32 06/10/2006/11/2025 Chlam ydia trach omati s and Neiss eria gonor rhoea e rRNA panel - Urine by SKY with probe detec tion interpretati on and review of laboratory results Normal Not Available Not Available 06/07 14:46:32 07/17/2007/18/2025 cultu re, urine culture, urine No growth in 1 day (detec tion level of 10,000 coloni es / ml.) Not Available Not Available 03:44:53 07/17/2007/18/2025 cultu re, urine lab interpretati on Normal Not Available Not Available 07/08 03:44:53 07/17/20 25 07/18/2025 hepat itis C Ab, qual, IA, serum or plasm a hepatitis C Ab, qual, ia, serum or plasma Non-re active text: non-re active Antib odies to HCV Not Detec eliu, does not exclu de the possi bilit y of expos ure to HCV. Not Available Not Available 07/19/2025 03:44:53 07/17/2007/18/2025 hepat itis C Ab, qual, IA, serum or plasm a lab interpretati on Normal Not Available Not Available 07/08 03:44:53 07/17/20 25 07/18/2025 HIV 1+2 AB + HIV 1 p24 Ag, quali tativ e immun oassa y, serum HIV 1+2 Ab + HIV 1 P24 Ag, qualitative immunoassay, serum Nonrea ctive text: nonrea ctive Not Available Not Available 07/19/2025 03:44:53 07/17/20 25 07/18/2025 HIV 1+2 AB + HIV 1 p24 Ag, quali tativ e immun oassa y, serum HIV-1 antigen and HIV-1/HIV-2 antibodies were not detected. no laboratory evidence of HIV infection. HIV-1 antige n and HIV-1/ HIV-2 antibo dies were not detect ed. No labora tory eviden ce of HIV infect ion. Not Available Not Available 03:44:53 07/17/20 25 07/18/2025 HIV 1+2 AB + HIV 1 p24 Ag, quali tativ e immun oassa y, serum lab interpretati on Normal Not Available Not Available 07/08 03:44:53 07/17/20 25 07/18/2025 HBsAg (hepa titis B surfa ce Ag) neutr brynn tion, serum HBsAg (hepatitis B surface Ag) neutralizati on, serum Non-re active text: non-re active This assay was perfo rmed using [employer] n reage nts and test kits. Value s obtai jose with other assay metho ds or kits canno t be used inter [facility] . Not Available Not Available 07/19/2025 03:44:53 07/17/2007/18/2025 HBsAg (hepa titis B surfa ce Ag) neutr brynn tion, serum lab interpretati on Normal Not Available Not Available 07/08 03:44:53 07/17/20 25 07/18/2025 mrsa scree n, PCR rubella virus IgG Ab, ql, serum Reacti ve text: reacti ve Not Available Not Available 07/19/2025 03:44:53 07/17/20 25 07/18/2025 mrsa scree n, PCR rubella virus IgG Ab, ql, serum 158.4 text: >=10 IU/mL Not Available Not Available 07/19/2025 03:44:53 07/17/20 25 07/18/2025 mrsa scree n, PCR non-reactive (non-immune) <10 IU/mL reactive (immune) > or = 10 IU/mL Non-re active (Non-I mmune) <10 IU/mL Reacti ve (Immun e) > or = 10 IU/mL Not Available Not Available 03:44:53 07/17/20 07/18/2025 mrsa scree n, PCR lab interpretati on Normal Not Available Not Available 07/08 03:44:53 07/17/20 25 07/18/2025 RPR (rapi d plasm a reagi n), serum RPR (rapid plasma reagin), serum Nonrea ctive text: nonrea ctive Not Available Not Available 07/19/2025 03:44:53 07/17/20 25 07/18/2025 RPR (rapi d plasm a reagi n), serum lab interpretati on Normal Not Available Not Available 07/08 03:44:53 10/28/20 23 10/27/2023 CT, abdom en + pelvi s, w/ contr ast No observ ation record ed. [address] [facility], [place], [address], 04/18/2025 10:34:45 04/20/20 25 04/20/2025 imagi ng/di agnos tic resul t No observ ation record ed. [address] [address], [place], [address], 04/24/2025 13:34:01 Result Notes None recorded. Problems Name Problem SNOMED Code Status Onset Date Resolution Date Notes Provider Name and Address Organization Details Recorded Time Constipa tion 68577164 Completed 04/10/2024 KAREN CHAVEZ DO Attn: Jeanne evans,[address] [facility], [place], [address], [place] 4 15:04:26 Chest pain 94336351 Completed 04/10/2024 KAREN CHAVEZ DO Attn: Jeanne evans,[address] [facility], [place], [address] 4 15:04:26 Unexplai jose weight loss 068717508 Completed 04/10/2024 KAREN CHAVEZ DO Attn: Jeanne evans,[address] [facility], [place], [address] 4 15:04:26 Family history of breast cancer 964971235 Active 2017 KAREN CHAVEZ DO Attn: Jeanne evans,[address] [facility], [place], [address], [place] [facility] 4 15:04:29 Ruptured cyst of ovary 04718800 Completed 201904/10/2024 CT in the ER on 0 showed likely ruptured R ovarian cyst w/ small amount of hemorrha ge KAREN CHAVEZ DO Attn: Jeanne evans,[address] [facility], [place], [address], [place] [facility] 4 15:04:27 Pregnanc y 62313550 Completed 201905/04/2021 Abril Harper [place], [place] [facility] 1 13:00:12 Group B Streptoc occus carrier [id number] 03 Completed 201904/10/2024 KAREN CHAVEZ DO Attn: Jeanne evans,[address] [facility], [place], [address], [place] [facility] 4 15:04:26 Group B Streptoc occus carrier [id number] 03 Completed 2019 Hayley Katz MD Attn: Jeanne evans,[address] [facility], [place], [address], [place] [facility] 1 09:12:23 Chlamydi a trachoma tis infectio n in pregnanc y 97485013296 01 Completed 2019 Hayley Katz MD Attn: Accountin g,[address] [facility], [place], [address], [place] [facility] 1 09:12:23 Chlamydi a trachoma tis infectio n in pregnanc y 01410882027 01 Completed 201904/10/2024 KAREN CHAVEZ DO Attn: Accountscottie g,[address] [facility], [place], [address], [place] [facility] 4 15:04:26 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 93724983319 9102 Completed 2019 Hayley Katz MD Attn: Jeanne evans,[address] [facility], [place], [address], [place] [facility] 1 09:12:23 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 47571281934 9102 Completed 201904/10/2024 KAREN CHAVEZ DO Attn: Jeanne evans,[address] [facility], [place], [address], [place] [facility] 4 15:04:26 growth restrict ion 37247760 Completed 2020 Hayley Katz MD Attn: Jeanne evans,[address] [facility], [place], [address], [place] [facility] 1 09:12:23 growth restrict ion 52587830 Completed 202004/10/2024 KAREN CHAVEZ DO Attn: Jeanne evans,[address] [facility], [place], [address] [facility] 4 15:04:26 Delivery by emergenc y section 313489917 Completed 202004/10/2024 KAREN CHAVEZ DO Attn: Jeanne evans,[address] [facility], [place], [address], [place] [facility] 4 15:04:26 Past pregnanc y history of hemolysi s-elevat 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 035436543 Active 2020 KAREN CHAVEZ DO Attn: Jeanne evans,[address] [facility], [place], [address], [place] [facility] 4 15:04:37 Chronic gastriti s 1120762 Active 2022 MORGAN Hensley-BG Attn: Jeanne evans,[address] [facility], [place], [address], [place] [facility] 5 10:38:31 Irregula r intermen strual bleeding 14108121 Active 2023 KAREN CHAVEZ DO Attn: Jeanne evans,[address] [facility], [place], [address], [place] [facility] 4 15:04:44 Trying to conceive 488979696 Active 2023 KAREN CHAVEZ DO Attn: Jeanne evans,[address] [facility], [place], [address], [place] [facility] 4 15:04:42 Body mass index 25-29 - overweig ht 497494715 [facility] Attn: Jeanne evans,[address] [facility], [place], [address] 5 10:40:51 Not enrolled in health insuranc e plan Active 2024 MORGAN HensleyBG Attn: Jeanne evans,[address] [facility], [place], [address], [place] 5 11:01:25 Family history of malignan t neoplasm of breast in first degree relative 530844864 Active 2024 [facility] Attn: Jeanne evans,[address] [facility], [place], [address], [place] 5 11:03:23 Polycyst ic ovary syndrome 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 Procedures Surgical History Date Name Laterality Status Provider Name and Address Organization Details Recorded Time 5 Date of Last Pap Smear completed Iris Rock RN [facility] 04/18/2025 10:21:59 1 Depo Injection completed Conor Chamorro [facility] 06/09/2021 13:07:31 1 Suture/Staple removal completed Conor BurkettAshtyn [facility] 05/02/2021 10:49:20 Caesarean Section completed Abril Harper MA [facility] 07/30/2022 14:40:56 Imaging Results None recorded. Procedure Notes None recorded. Medical Equipment None Reported. Allergies Allergen ID Allergen Name Allergen Category Reaction Reaction Severity Criticality Documentation Date Start Date Code Code System Note Provider Name and Address Organization Details Recorded Time 301530 codeine medicatio n itching Not available Not available 04/18/20252018 2670 RxNorm DREW Otoole, [facility] 5 10:23:01 82858 morphine medicatio n dyspnea Not available [facility] 03/23/20162018 7052 RxDREW Chaney, [facility] 5 10:23:11 Medications Name Sig Start Date Stop Date Status Note LastModified by Organization Details LastModified Time Singulair 10 mg tablet Take 1 tablet every day by oral route for 30 days. active Not Available Not Available No t Available multivitami n tablet Take 1 tablet every day by oral route. 02/19 completed Not Available Not Available Not Available metformin 500 mg tablet TAKE 1 TABLET BY MOUTH TWICE DAILY active Not Available Not Available No t Available cetirizine 10 mg tablet Take 1 tablet [...] route in the morning for 30 days. 10/15 completed Not Available Not Available Not Available promethazin e 25 mg tablet TAKE 1 TABLET BY MOUTH EVERY 4 HOURS active Not Available Not Available No t Available progesteron e micronized 200 mg capsule [...] propionate 50 mcg/actuati on nasal spray,suspe nsion [place] 1 spray every day by intranasa l [...] blood by Pulse oximetry Heart rate Systolic And Diastolic Provider Name and Address Organization Details Last Updated DateTime 4 156.21 cm 25 kg/m2 45402.5 3 g 18 /min 100 % 100 % 67 /min 108/72 mm[Hg] Lia Zaidi [place] 4 14:51:01 Date Recorded Body height Body mass index (BMI) Body weight Oxygen saturation Oxygen saturation in Arterial blood by Pulse oximetry Heart rate Body temperature Systolic And Diastolic Provider Name and Address Organization Details Last Updated DateTime 5 154.94 cm 26.7 kg/m2 30608.3 2 g 100 % 100 % 84 /min 97.9 [degF] 102/62 mm[Hg] Iris Rock RN [facility] 5 10:26:50 Date Recorded Body height Body mass index (BMI) Body weight Body temperature Heart rate Oxygen saturation Oxygen saturation in Arterial blood by Pulse oximetry Systolic And Diastolic Provider Name and Address Organization Details Last Updated DateTime 5 154.94 cm 26.6 kg/m2 46090.5 2 g 97.9 [degF] 70 /min 98 % 98 % 100/68 mm[Hg] Cirilo Cox MA [facility] 5 12:59:06 Date Recorded Body height Body mass index (BMI) Body weight Systolic And Diastolic Provider Name and Address Organization Details Last Updated DateTime 06/09/2023 156.21 cm 23.6 kg/m2 37147.23 g 104/62 mm[Hg] Barbara Post MA [facility] 06/09/2023 15:26:02 Date Recorded Body height Body mass index (BMI) Body weight Systolic And Diastolic Provider Name and Address Organization Details Last Updated DateTime 10/15/2022 156.21 cm 24 kg/m2 47169.42 g 92/58 mm[Hg] Mihaela Forman MA [facility] 10/15/2022 09:33:37 Social History Question Answer Notes LastModified by Organizat ion Details LastModified Time Tobacco Smoking Status Never Smoker CLARITZA Ball, [facility] 04/01/2015 12:25:27 Do You Have An Advance Directive? No Information n ot available 05/25/2017 Are You Blind Or Do You Have Difficulty Seeing? No Information n ot available 04/18/2025 What Is Your Level Of Caffeine Consumption? None Information not available 09/24/2020 How Much Tobacco Do You Chew? None [email or web address] Information not available 04/01/2015 In The 14 [...] Type Of Diet Are You Following? REGULAR [email or web address] Information n ot available 04/01/2015 Which Illicit Or Recreational Drugs Have You Used? None Information not available 09/24/2020 Education 12 [email or web address] Information no t available 04/01/2015 Are There Any Guns Present In Your Home? No [email or web address] Information not available 04/01/2015 Hard Of Hearing Or Deaf In One Or Both Ears? No Information not available 04/01/2015 Legally Blind In One Or Both Eyes? No [email or web address] Information no t available 04/01/2015 Marital Status Single [email or web address] Informatio n not available 04/01/2015 What Was The Date Of Your Most Recent Tobacco Screening? 04/24/2025 Information not available 04/24/2025 How Many Children Do You Have? 1 Information not available 06/09/2021 Performs Monthly Self-breast Exam? No Information no t available 05/25/2017 What Is Your Relationship Status? Single Information not available 04/18/2025 Do You Use Your Seat Belt Or Car Seat Routinely? Yes Information not available 04/18/2025 Seat Belts Used Routinely Yes [email or web address] Information not available 04/01/2015 Are You Sexually Active? Yes Information not available 01/07/2021 Smoke Alarm In Home Yes [email or web address] Information not available 04/01/2015 Do You Have Smoke And Carbon Monoxide Detectors In Your Home? Yes Information not available 01/07/2021 Are You Passively Exposed To Smoke? No [email or web address] Information no t available 03/25/2021 How Much Tobacco Do You Smoke? No [email or web address] Information not available 04/01/2015 General Stress Level Medium [email or web address] Information not available 04/01/2015 Do You Use [...] 01/07/2021 Are you able to care for yourself independently? Yes Information not available 04/18/2025 What is your occupation? Unemployed Information not available 09/24/2020 What is your exercise level? None [email or web address] Information not available 04/01/2015 Mental Status None recorded. Family History Relationship Description Onset Age of this Age Resolved Age Notes LastModified by Organization Details LastModified Time Mother Hypertensive disorder 54 [email or web address] Not available 2024 10:58:04 Mother Malignant neoplasm of breast 46 just got diagno sed [...] virus, quadrivalent, preservative 8 completed Not Available [facility] 11/24/2019 02:35:19 HPV9 8 completed Not Available [facility] 11/24/2019 02:35:18 meningococcal MCV4P 8 completed Not Available [facility] 11/24/2019 02:43:41 HPV9 8 completed Not Available [facility] 11/24/2019 02:35:25 Influenza, split virus, quadrivalent, preservative 0 completed Mihaela [place] [facility] 09/24/2020 13:19:11 Tdap 1 completed Mi[place]ela [place] [facility] 03/25/2021 11:26:26 HPV9 1 completed Barbara Post [place] [facility] 06/09/2021 13:36:08 Influenza, split virus, quadrivalent, preservative 2 completed Mihaela [place] [facility] 10/15/2022 11:01:48 MMR 0 completed Cheyanne Greenwood PA-C Attn: [address] [place], [address], [place] [facility] 01/12/2018 14:21:24 MMR 3 completed Cheyanne Greenwood PA-C Attn: [address] [place], [address], [facility] - [facility] 01/12/2018 14:21:28 Hep B, unspecified formulation 0 completed Cheyanne Greenwood PA-C Attn: [address] [facility], [place], [address], [facility] - [facility] 01/12/2018 14:21:42 Hep B, unspecified formulation 0 completed Cheyanne Greenwood PA-C Attn: [address] [facility], [place], [address], [facility] - [facility] 01/12/2018 14:21:46 Hep B, unspecified formulation 1 completed Cheyanne Greenwood PA-C Attn: [address] [facility], [place], [address], [facility] - [facility] 01/12/2018 14:21:52 Hep A, pediatric, unspecified formulation 2 completed Cheyanne Greenwood PA-C Attn: [address] [facility], [place], [address], [facility] - [facility] 01/12/2018 14:22:02 Hep A, pediatric, unspecified formulation 6 completed Cheyanne Greenwood PA-C Attn: [address] [facility], [place], [address], [facility] - [facility] 01/12/2018 14:22:07 varicella 0 completed Cheyanne Greenwood PA-C Attn: [address] [facility], [place], [address], [facility] - [facility] 01/12/2018 14:22:31 varicella 2 completed Cheyanne Greenwood PA-C Attn: [address] [facility], [place], [address], [facility] - [facility] 01/12/2018 14:22:35 Past Encounters Encounter ID Performer Location Encounter Start Date Encounter Closed Date Diagnosis/Indication Diagnosis SNOMED-CT Code Diagnosis ICD10 Code Diagnosis IMO Codes Diagnosis Note [id number] Lele Martin MD [facility] [address] [phone] 04/01/2015 12:10:42 04/04/2015 15:38:42 History of anemia 684608824 Constipation 87719065 incr ease water fiber every day Chest pain 89306811 As pat ient reports getting CXR/EKG done at E/R will review and not order these for now advised chest pain may be related to anxiety symptoms secondary to mother's new breast cancer diagnosis apply warm compress to chest wall prn Unexplaine d weight loss 746476980 per patient 22 pound weight loss in 2 months [id number] MD Daniel Russ (Adult Med) [address] [place] [phone] 03/23/2016 11:18:00 03/23/2016 17:54:30 Family history of breast cancer 208829830 Z80.3 Upon further review, patient was already referred to [facility] 03/[address] Gann (mother's oncologist ) d/t the type of breast cancer that her mother, Shannon Pina, was dx'ed with Patient was advised concerning her referral that already existed and advised to contact [facility] Sierra's office for her appointmen t History of anemia 468601 002 Z86.2 [id number] MD Daniel Jimenez (Adult Med) [address] [place] [phone] 01/12/2018 13:37:42 01/12/2018 15:05:14 Active or passive immunization 514855668 Z23 RTC 1-2 months for Gardasil #2 and 6 months for Gardsil #3 Tuberculos is screening 588182302 Z11.1 d/t BCG vaccine, cannot do PPD - will check blood Venereal d isease screening 676543252 Z11.3 History an d physical examination, pre-employment 804150309 Z02.1 physical form completed and once lab results are received concerning TB will give form [id number] JULIUS Rogers (Adult Med) [address] [place] [phone] 04/25/2018 10:30:11 04/26/2018 09:06:52 Gynecologic examination 94757814 Z01.419 Active or passive immunization 719361565 Z23 RTC 4 months for Gardasil #3 (appointme nt schedule) Family his tory of breast cancer 431303872 Z80.3 Has been referred to [facility] in the past for evaluation (03/2015) by Dr. Gann (mother's oncologist ) d/t the type of breast cancer that her mother, Shannon Pina, was dx'ed with [id number] KAROL RUGGIERO (Adult Med) [address] [place] [phone] 12/28/2019 11:52:42 12/31/2019 08:18:26 Ruptured cyst of ovary 14790118 N83.209 She developed diffuse pelvic pain about 2 weeks ago, then on 12/24/2019 she developed sharp R severe pelvic pain.She went to [facility] ER on 12/25/2019, a CT of [...] so she can get additional imaging completed [id number] [facility] RUGG[facility]ERO [facility] (Adult Med) [address] [place] [phone] 03/27/2020 09:19:59 03/27/2020 09:39:32 [id number] KAROL LIMA [facility] (SIGNAL WORKER) [address] [place] [phone] 09/24/2020 09:38:19 09/29/2020 10:58:45 Routine care 178153087 Z34.01 Patient is a primigravi da female presenting for NOB at 7w0d. LMP 08/06/20. 2+ home tests. She endorses nausea x 2 days. She went to [place] ER for spotting and malodorous discharge that she had for 1 day. She was tested for STDs and treated with abx prophylact ically. The spotting has resolved. Denies vomiting and cramping. US in ED with viable IUP.-ACOG paperwork reviewed and provided to patient-NO B labs drawn-1st trimester US order given, advised to schedule in 3-4 weeks-RTC in 1 month Venereal d isease screening 385361699 Z11.3 screening 2437 04349 Z36.85 Threatened miscarriage 80535136 O20.0 -Visit to ER for spotting, which has resolved. Reassuring US with viable IUP. Continue to monitor.-S tart progestero ne as prescribed .-F/u US in 3-4 weeks. Morning sickness 4106120 6 O21.9 -Reports nausea-Jelena ly scopolamin e patch to help with symptoms-T a p supervisor avoidance and small snacks every 1-2 hours Administra tion of influenza vaccine 32829731 Z23 [id number] KAROL LIMA (SIGNAL WORKER) [address] [place] [phone] 10/15/2020 09:32:53 10/16/2020 07:38:11 Routine care 220832143 Z34.01 25yo primigravi da female presenting for VIDAL at 9w3d. c/b chlamydia, MTHFR, and GBS. She has no concerns today. She states nausea and vomiting have improved. US 10/10 with EDC 05/17/2021. RTC in 4 weeks. 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 Continue progestero ne, ASA, and folic acid. B12 given today. Chlamydia trachomatis infection in 6652233203 101 O23.91 Positive at initial OB. She has completed treatment for chlamydia, partner getting tested today. Asymptomat ic. Retest today. Abstinence until negative testing. Safe sex discussed. [id number] KAROL LIMA (SIGNAL WORKER) [address] [place] [phone] 12/10/2020 11:38:52 12/18/2020 20:56:45 Routine care 358818580 Z34.92 25yo primigravi da female presenting for VIDAL at 17w3d. c/b chlamydia, MTHFR, and GBS. Mild headaches relieved with Tylenol and nosebleeds . Advised Vaseline on nasal septum every night before bed. B12 administer ed today. AFP drawn. Ordered US today. RTC in 4 weeks. Heterozygo us methylenetetrahydrofo late reductase mutation [id number] 85843 E72.12 heterozygo us for the MTHFR C677T variant. Continue progestero ne, ASA, and folic acid. B12 given today. screening 2437 34856 Z36.0 Will draw AFP tetra today. Patient does not want know gender of baby. [id number] KAROL LIMA (SIGNAL WORKER) [address] [place] [phone] 01/07/2021 10:18:33 01/14/2021 08:53:10 Routine care 237419337 Z34.92 25 yo primigravi da female presenting for VIDAL at 21w3d. c/b chlamydia, MTHFR, and GBS. US done on 12/29 showed normal anatomy survey, EFW 51% and fetus in breech presentati on. B12 administer ed. RTC in 4 weeks for GCT, informatio nal handout provided. Heterozygo us methylenetetrahydrofo late reductase mutation [id number] 87057 E72.12 heterozygo us for the MTHFR C677T variant. Continue progestero ne, ASA, and folic acid. B12 injection given today. History of sexually transmitted disease 952151059 Z86.19 H/o positive chlamydia 09/24/20. Will retest today. [id number] KAROL LIMA (SIGNAL WORKER) [address] [place] [phone] 02/04/2021 08:56:24 02/05/2021 13:42:42 Routine care 602941880 Z34.92 25 yo primigravi da female presenting for VIDAL at 25w3d. c/b chlamydia, MTHFR, and GBS. B12 administer ed. GCT completed today. Educated patient on Kick counts, WTC, ER precaution s. Order for 3rd trimester US provided. RTC in 2 weeks. Heterozygo us methylenetetrahydrofo late reductase mutation [id number] 98526 E72.12 heterozygo us for the MTHFR C677T variant. Continue progestero ne, ASA, and folic acid. B12 injection given today. screening 2437 84425 Z36.9 Venereal d isease screening 168186010 Z11.3 [id number] KAROL LIMA (SIGNAL WORKER) [address] [place] [id number] 0 03/04/2021 09:44:40 03/09/2021 07:22:28 Routine care 183230339 Z34.92 VIDAL at 29w3d. US on 03/03/2021 showed biometry consistent with growth restrictio n, EFW < 3%, CAROLINE WNL. See below. Office out of Tdap, plan to administer at next visit. RTC in 2 weeks. Heterozygo us methylenetetrahydrofo late reductase mutation [id number] 80989 E72.12 Heterozygo us for the MTHFR C677T variant. Continue progestero ne, ASA, and folic acid. B12 injection administer ed today. grow th restriction 91835175 O35.8XX9 US on 03/03/2021 showed biometry consistent with growth restrictio n, EFW < 3%, CAROLINE WNL. Reassuring biophysica l profile, no abnormalit ies were detected on detailed anatomic survey. Continue to follow with [facility] for CMV serology studies, daily kick counts, and weekly 10-point BPP while awaiting repeat growth assessment in ~3 weeks. Allergic rhinitis 214246 04 J30.9 Complains of seasonal allergies with congestion and rhinorrhea . She has taken Robitussin without improvemen t of symptoms. Prescribed Flonase and cetirizine . [id number] KAROL LIMA (SIGNAL WORKER) [address] [place] [id number] 03/25/2021 10:49:18 03/27/2021 14:27:48 Routine care 713305624 Z34.92 VIDAL at 32w2d. complicate d by MTHFR, GBS, and growth restrictio n. B12 and Tdap given today. Follow with MFM for FGR. Continue kick counts. RTC in 2 weeks. Venereal d isease screening 738296731 Z11.3 Small for gestational age fetus 677667737 O36.5999 US on 03/24 with MFM showed growth at 4% consistent with SGA growth pattern, normal Dopplers, CAROLINE WNL. Repeat US scheduled in 2 weeks. Heterozygo us methylenetetrahydrofo late reductase mutation [id number] 39042 E72.12 Heterozygo us for the MTHFR C677T variant. Continue progestero ne, ASA, and folic acid. B12 injection administer ed today. [id number] KAROL LIMA (SIGNAL WORKER) [address] [place] [phone] 0 04/08/2021 10:43:58 04/25/2021 16:16:38 Routine care 737663291 Z34.93 VIDAL at 34w3d. complicate d by MTHFR, GBS, and SGA fetus. Follow with MFM for growth monitoring . RTC in 2 weeks. Heterozygo us methylenetetrahydrofo late reductase mutation [id number] 57971 E72.12 Heterozygo us for the MTHFR C677T variant. Continue progestero ne, ASA, and folic acid. B12 injection administer ed 03/25/21. Small for gestational age fetus 261192338 O36.5999 US on 04/07 with MFM showed growth at 4% consistent with SGA growth pattern, normal Dopplers, reassuring BPP. Lack of evidence for pathologic growth restrictio n. Repeat US scheduled in 2 weeks. Daily kick counts. [id number] KAROL LIMA (SIGNAL WORKER) [address] [place] [id number] 0 04/23/2021 11:38:19 04/25/2021 17:28:34 Routine care 376449561 Z34.93 VIDAL at 36w3d. complicate d by MTHFR, GBS, and SGA fetus. Follows with MFM for FGR. UA with 300+ protein and LE edema on exam. BPs high for pt. Sent to [facility] for PIH testing/mo nitoring. RTC in [address] Chamorro. screening 2437 70766 Z36.85 Venereal d isease screening 152605348 Z11.3 Heterozygo us methylenetetrahydrofo late reductase mutation [id number] 41411 E72.12 Heterozygo us for the MTHFR C677T variant. Continue progestero ne, ASA, and folic acid. B12 injection administer ed today. Small for gestational age fetus 589799047 O36.5999 US on 04/21 with MFM showed growth at 6% consistent with SGA growth pattern, normal Dopplers, reassuring BPP. Lack of evidence for pathologic growth restrictio n. Repeat US scheduled in 2 weeks. Daily kick counts. - induced hypertension 33642921 O13.9 BP in clinic today 122/80. Initial BP 106/54. Pt to [facility] for labs, concerned for impending severe pre-eclamp josé miguel. [id number] Conor Chamorro MD [facility] (SIGNAL WORKER) [address] [place] [address] [phone] 0 05/04/2021 12:27:48 05/04/2021 22:20:06 Past history of hemolysis-elevated liver enzymes-low platelet count syndrome 537626176 Z86.2 Delivery b y emergency section 717257272 O82 care 28633629 8 Z39.2 Postoperative visit 1836 58289 Z09 [id number] Conor Chamorro MD [facility] (SIGNAL WORKER) [address] [place] [address] [phone] 0 05/12/2021 09:59:29 05/21/2021 14:43:42 care 515102262 Z39.2 Heterozygo us methylenetetrahydrofo late reductase mutation [id number] 35637 E72.12 Delivery b y emergency section 382916492 O82 Past pregn blu history of hemolysis-elevated liver enzymes-low platelet count syndrome 793751078 Z86.2 [id number] MD Daniel Cristina (SIGNAL WORKER) [address] [place] [address] [phone] 0 06/09/2021 11:43:23 06/09/2021 13:11:09 Contraception care 339127796 Z30.40 Uses depot contraception 945857447 Z30.013 Active or passive immunization 645958438 Z23 G#3 Immunization due 0706758 08 Z28.3 covid vaccine [id number] MD Daniel Cristina [facility] (SIGNAL WORKER) [address] [place] [address] [phone] 0 08/28/2021 09:58:15 08/31/2021 09:10:45 Family planning surveillance 334382018 Z30.09 [id number] KAROL LIMA (SIGNAL WORKER) [address] [place] [address] [phone] 11/27/2021 14:21:01 11/30/2021 07:16:05 Contraception care 804284535 Z30.40 [id number] KAROL LIMA (SIGNAL WORKER) [address] [place] [address] [phone] 0 02/19/2022 12:03:04 02/22/2022 12:46:20 Surveillance of depot contraception done 9597145260 9104 Z30.42 [id number] KAROL LIMA (SIGNAL WORKER) [address] [place] [address] [phone] 0 03/02/2022 08:29:46 03/04/2022 12:00:27 Dysuria 09843094 R30.9 Pt reporting irritative voiding symptoms x 3 days. UA with trace leuks, otherwise unremarkab le. Given pt's symptoms, will treat empiricall y. Follow up culture. Discussed increasing water intake and proper wiping techniques . RTC if symptoms do not improve. [id number] KAROL RUGGIERO (Adult Med) [address] [place] [address] [phone] 07/30/2022 14:25:35 08/03/2022 09:55:20 Mixed anxiety and depressive disorder 170452628 F41.8 Positive anxiety and depression screen todayUpon [...] us first- f/u in 1 month Headache 81778823 R51.9 Complainin g of new onset headaches x 2 months. The headaches are usually on the left side of anabaptist and occipital, do not alternate side. They [...] sleep can usually help headaches Anterior epistaxis 24840 4002 R04.0 Complainin g of 3-4 episodes [...] with informatio n for supportive care Anemia 478843152 D64.9 Hx of anemia in the past, prior history of menorrhagi a but has not had a cycle in over 1 year from depo shotCompla ining of headaches and new onset heavy nosebleeds - will recheck today Secondary amenorrhea 156 558023 N91.1 Used to have heavy periods but has been amenorrhei c since starting depo last Summer. She stopped the depo 02/2022 due to SE, has not started her cycle yet.- provided reassuranc e, normal after stopping depo, can take up to 6-9 months to get menses to return [id number] KAROL LIMA [facility] (SIGNAL WORKER) [address] [place] [address] [phone] 0 10/15/2022 09:19:41 10/20/2022 10:47:46 Amenorrhea 84373547 N91.2 Off Depo Provera since May 2022 and still amenorrhei c. Advised that return to fertility after discontinu ing Depo is delayed, up to 12-18 months. Pt voiced understand ing. Advised to RTC in 6 months if amenorrhea persists, sooner if needed. Start daily PNV. Administra tion of influenza vaccine 47939725 Z23 Annual flu shot administer ed today. [id number] KAROL LIMA [facility] (SIGNAL WORKER) [address] [place] [address] [phone] 0 06/09/2023 15:07:36 06/13/2023 11:34:53 Irregular periods 66911345 N92.6 Pt having irregular periods after discontinu ing Depo. Reassured patient that it is not uncommon for it to take 12 - 18 months to resume normal cycle after stopping Depo. Although cycle is irregular, could still happen. Start tracking cycle and taking PNV. Pt voiced understand ing. RTC if irregular cycle persists. [id number] MD Daniel Kelly [facility] (SIGNAL WORKER) [address] [place] [address] [phone] 04/09/2024 14:16:12 04/17/2024 16:24:46 Irregular intermenstrual bleeding 65828844 N92.1 Will obtain labs and pelvic USWill treat pending resultsMig ht be related to stress with recent in familyHold ing off on semen analysis and HSG due to previous uncomplica eliu 3 years ago with same partnerIf everything negative, consider starting Metformin Trying to conceive 35308 9000 Z31.49 Recommend daily vitamin Body mass index 25-29 - overweight 478915775 Z68.25 Healthy lifestyle encouraged including regular exercise of at least 150min per week, diet rich in plant based foods and low in added sugars, processed carbohydra kb, and high salt foods. Encouraged protein intake mostly with chicken and white fish and limited red meat. Screening for malignant neoplasm of cervix 086350672 Z12.4 Patient declined pap today because she did not have timeNeeds pap at next visit [id number] Malcolm Davis MD [facility] [address] [place] [address] 04/18/2025 10:11:59 04/22/2025 10:54:55 Irregular intermenstrual bleeding 44203888 N92.1 Will obtain pelvic US reports from [facility] [place][ ports normal was offered oral control pills for menses regulation but patient refused as she wants to become Ho lding off on semen analysis and HSG due to previous uncomplica eliu 3 years ago with same partnerAs everything negative, consider starting Metformin 500mg qd for now will titrate upReceived and discussed test, urine resultsChe ck prolactin- 796450-VVs joey TSH rfx on abnormal to free H8Dfbng US, pelvis, transabdom inal + transvagin alCheck nuswab vaginitis plus (vg+)Check testostero ne,free and totalCheck CBC with differenti al/platele tCheck FSH and LHCheck estradiolC heck hemoglobin [id number]-[id number] -PAll above results normal done on 04/29/2024S uspect POSWill start metformin 500mg Trying to conceive 59080 9000 Z31.49 Recommend daily vitamin Body mass index 25-29 - overweight 906779276 Z68.25 BMI 26.7Health y lifestyle encouraged including regular exercise of at least 150min per week, diet rich in plant based foods and low in added sugars, processed carbohydra kb, and high salt foods. Encouraged protein intake mostly with chicken and white fish and limited red meat. Not enroll ed in health insurance plan [id number] 20953 Z59.71 [id number] NO medical insurance Hyperlipid emia screening 037799968 Z13.220 [id number] Family his tory of malignant neoplasm of breast in first degree relative 678681041 Z80.3 [id number] Patient refuses genetic counselor referral Polycystic ovary syndrome 173517082 E28.2 237453 Depression screening 171 622640 Z13.31 [id number] negative [id number] Malcolm Davis MD [facility] [address] [place] [address] 04/24/2025 12:51:33 04/26/2025 10:41:10 Follow-up encounter 278952169 Z09 [id number] 29 y/o HF PRESENTS FOR FOLLOW UP ER VISIT FOLLOWING VAGINAL BLEEDING AND CRAMPING FOR A COUPLE OF DAYS. SHE REPORTS NO MORE BLEEDING SINCE YESTERDAY. SHE IS FOLLOWING PELVIC REST. SHE IS TAKING PNV. Threatened miscarriage 08660294 O20.0 71910 04/20/2025 pelvic u/s normal no evidence BHCG 14 Body mass index 25-29 - overweight 398186301 Z68.25 BMI 26.6Health y lifestyle encouraged including regular exercise of at least 150min per week, diet rich in plant based foods and low in added sugars, processed carbohydra kb, and high salt foods. Encouraged protein intake mostly with chicken and white fish and limited red meat. Health Concerns Section Related Observation LastModified by [...] 2020 (MEDICAID REPLACEMENT - HMO) Tracey Cifuentes [id number] Tracey Cifuentes 04/09/2024 1 *SELF PAY* Br cyndi Cifuentes 08/27/2024 1 [place] [employer] [employer] Tracey Cifuentes [id number] Tracey Cifuentes 04/20/2017 SLIDING FEE SCHEDULE - DISCOUNT Tracey Cifuentes 01/12/2018 SLIDING FEE SCHEDULE - DISCOUNT Tracey Cifuentes 11/12/2020 2 *SELF PAY* Br cyndi Cifuentes 04/18/2025 SLIDING FEE SCHEDULE - DISCOUNT Tracey Cifuentes 05/20/2025 SLIDING FEE SCHEDULE - DISCOUNT Tracey Esau 05/20/2025 SLIDING FEE SCHEDULE - DISCOUNT Tracey Esau 12/28/2019 SLIDING FEE SCHEDULE - DISCOUNT Tracey Esau Notes Date Note Type Note Provider Name and Address Organization Details Recorded Time 10/15/2022 text/html 27yo presents to clinic for evaluation of amenorrhea. Pt [...] chills, n/v, weight changes. KAROL LIMA Attn: Accounting,[address] [place], [address], [place] [facility] 10/15/2022 09:53:44 06/09/2023 text/html ROS as noted in the HPI 27yo f presenting for abnormal periods. She [...] swallowing, fevers, chills, n/v. KAROL LIMA Attn: Accounting,[address] [facility], [place], [address], [place] [facility] 06/10/2023 11:53:57 04/09/2024 text/html Annual GYNReport ed by PatientHistoryFor history, patient reportsplanning in the near futureandactively trying to conceive(has been trying to conceive for more than a year. stopped depo 1.5 years ago. lost her mom in june and has been feeling anxious. has one other child with same partner and got within 3 months of trying.).Genitourinary symptomsFor menstrual cycle, patient reportsintervals less than 21 days,irregular cycle intervals, andbleeding between periods(est care, pt. states that she has been getting her menstrual several days in the same monthapril 26th-30may -, - , started again april 05 and is currently on it now, however she is having a very light flow). For urinary symptoms, patient reportsno hematuriaandno incontinence. For vulva, patient reportsno genital lesion. For vagina, patient reportsnormal vaginal discharge.Breast symptomsFor breast, patient reportsno breast pain,no breast lump, andno nipple discharge.Endocrine symptomsFor sexual complaints, patient reportsno sexual complaints,no pain during intercourse, andnormal libido. For menopausal symptoms, patient reportsno menopausal symptomsandnormal vaginal lubrication.Psychologi mario symptomsFor psychological symptoms, patient reportsno depression,no anxiety, andno pmdd.Preventative measuresFor preventive measures, patient reportsencourage self breast examination,encourage regular exercise,encourage no tobacco use, andencourage regular mammograms starting age 40. Minda Solares MD Attn: Accounting,[address] [place], [address], [place] [facility] 04/12/2024 08:29:37 04/18/2025 text/html Annual GYNReport ed by PatientHistoryFor history, patient reportsplanning in the near futureandactively trying to conceive(has been trying to conceive for more than a year. stopped depo 1.5 years ago. lost her mom in june and has been feeling anxious. has one other child with same partner and got within 3 months of trying.).Genitourinary symptomsFor menstrual cycle, patient reportsintervals less than 21 days,irregular cycle intervals, andbleeding between periods(est care, pt. states that she has been getting her menstrual several days in the same monthmarch 1-7 light flowapril 30-8th heavierno periods in march). For urinary symptoms, patient reportsno hematuriaandno incontinence. For vulva, patient reportsno genital lesion. For vagina, patient reportsnormal vaginal discharge.Breast symptomsFor breast, patient reportsno breast pain,no breast lump, andno nipple discharge.Endocrine symptomsFor sexual complaints, patient reportsno sexual complaints,no pain during intercourse, andnormal libido. For menopausal symptoms, patient reportsno menopausal symptomsandnormal vaginal lubrication.Psychologi mario symptomsFor psychological symptoms, patient reportsno depression,no anxiety, andno pmdd.Preventative measuresFor preventive measures, patient reportsencourage self breast examination,encourage regular exercise,encourage no tobacco use, andencourage regular mammograms starting age 40.ROS as noted in the HPI 29 y/o L1 HF presents to establish care at this facility. She had irregular cycle work up a year ago and all results normal (except pelvic u/s not done) with DO Nemo Negron. She then saw a provider a [facility] [place] for same problem. There she had a normal pap and pelvic u/s. She was offered oral control pills but she refused as she wants to become . She admits to being very hairy and severe acne that occasionally leaves scars. She is in agreement to start Metformin. TRANG Hensley Attn: Accounting,[address] [place], [address], [facility] 04/18/2025 11:13:49 04/24/2025 text/html ROS as noted in the HPI 29 y/o HF PRESENTS FOR FOLLOW UP ER VISIT FOLLOWING VAGINAL BLEEDING AND CRAMPING FOR A COUPLE OF DAYS. SHE REPORTS NO MORE BLEEDING SINCE YESTERDAY. SHE IS FOLLOWING PELVIC REST. SHE IS TAKING PNV. TRANG Hensley Attn: Accounting,[address] [place], [address], [facility] 04/24/2025 13:37:15 OBGyn Episode Ob Episode Information Episode Created Date Number of Fetuses Patient Bloodtype Patient rh Status Prepregnancy Weight lbs Domestic Partner Domestic Partner Phone Father Name Punch Hand Status 09/24/20 20 1 O Positive 111 Pako fitzpatrick CLOSED Fetus Data First Name Last Name Admitted to NICU Weight (g) Sex Living Outcome Pediatric Complications Fetus ID Race Codes Race Delivery Type jacky cabrera palac ios 2381.35 8 F true Full Term 31907 2106-3 White Problems Problem Notes Circumcision not sure, yes b reastfeeding, Ped and PPBC not sure, Baby Girl = Corina Problem Name Start Date End Date Resolution Snomed Code Not e growth restriction 03/04/2021 2203 3001 Chlamydia trachomatis infect ion in 10/06/2020 [id number] Group B Streptococcus carrier 10/06/2020 [id number] 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 Nausea and vomi ting have improved. US / with EDC 05/17/2021. Flowsheet Date 12/10/2020 Johnson Score Blood Edema Fundus Height Fundus Units Glucose Ketones Leukocytes Nitrite Labor Signs Protein Cervic Dilation Cervic Effacement Cervic Station neg none 17 wks none negative none neg Type Weight in lbs Pre/Post Dialysis Refused Weight 117.635566292266 BP Diastolic BP Location Tested BP Systolic [...] in lbs Pre/Post Dialysis Refused With clothes 121.459743447969 BP Diastolic BP Location Tested BP Systolic [...] in lbs Pre/Post Dialysis Refused With clothes 124.986858350895 BP Diastolic BP Location Tested BP Systolic [...] in lbs Pre/Post Dialysis Refused With clothes 128.034802968447 BP Diastolic BP Location Tested BP Systolic BP Type 62 90 sitting 60 100 sitting Fetus Heart Rate Present A 145 Present Fetus Movement A Yes Comments VIDAL at 29w3d. GCT negative. US on 03/03/2021 with growth restriction, EFW < 3%, CAROLINE WNL. Reassuring BPP, no abnormalities were detected on detailed anatomic survey. Continue to follow with MFM for weekly Dopplers and 10-point BPP while [...] in lbs Pre/Post Dialysis Refused With clothes 137.515895452516 BP Diastolic BP Location Tested BP Systolic [...] in lbs Pre/Post Dialysis Refused With clothes 141.257825614924 BP Diastolic BP Location Tested BP Systolic BP Type 72 110 sitting Fetus Heart Rate Present A 145 Present Fetus Movement A Yes Comments VIDAL at 34w3d. MFM US on 04/07 shows 4th percentile, CAROLINE WNL, BPP reassuring; next US in 2 weeks. Continue kick counts. Flowsheet Date 04/23/2021 Johnson Score Blood Edema Fundus Height Fundus Units Glucose Ketones Leukocytes Nitrite Labor Signs Protein Cervic Dilation Cervic Effacement Cervic Station trace 1+ 32 cm none negative none 3+ 0cm 0% -4 Type Weight in lbs Pre/Post Dialysis Refused With clothes 145.4502011718 BP Diastolic BP Location Tested BP Systolic [...] Weight in lbs Pre/Post Dialysis Refused Weight 123.354791539470 BP Diastolic BP Location Tested BP Systolic BP Type 76 102 sitting Fetus Heart Rate Present Fetus Movement Comments Flowsheet Date 05/12/2021 Johnson Score Blood Edema Fundus Height Fundus Units Glucose Ketones Leukocytes Nitrite Labor Signs Protein Cervic Dilation Cervic Effacement Cervic Station Type Weight in lbs Pre/Post Dialysis Refused With clothes 127.001067001551 BP Diastolic BP Location Tested BP Systolic [...] Estim ated Date of Delivery false Thalassemia (Croatian, Lithuanian, Mediterranean, Or Background): MCV < 80 false Neural Tube Defect (Meningomyelocele, Spina Bifi da, Or Anencephaly) false Congenital Heart Defect false Down Syndrome false Graham-Sachs (eg, Moravian, Cajun, Ivorian-Kenton) f alse Alfredo Disease false Sickle Cell Disease Or Trait () false Hemophilia Or Other Blood Disorders false Muscular Dystrophy false Cystic Fibrosis false [place]'s Chorea false Mental Retardation/Autism false If Yes, [...] drugs) [email or web address] 09/24/2020 [facility]2020 Sexual activity [email or web address] 09/24/2020 Tobacco/smoking cess ation counseling (ask, advise, assess, assist, and arrange) denies [email or web address] 09/24/2020 Illicit/recreational drugs [place] [id number] 09/24/2020 Dental care dental consent provided [place] [id number] 09/24/2020 [facility] 09/[facility]/2020 Seat belt use [email or web address] 09/24/2020 Indications for ultrasonography [facility] 09/24/2020 Avoidance of saunas or hot tubs [facility] 09/24/2020 Toxoplasmosis precau tions (cats/raw meat) [email or web address] [...] [email or web address] 03/05/2021 Anesthesia plans [email or web address] 1 03/05/2021 education (n ewborn screening, jaundice, SIDS/safe sleeping position, car seat) [email or web address] 03/05/2021 Circumcision [email or web address] 03/05/2021 Postterm counseling jcortopa [email or web address] 03/05/2021 movement monitoring mervat [email or web address] 03/05/2021 [email or web address] 03/05/2021 Labor signs [email or web address] 03/05/2021 depression jcorto [email or web address] 03/05/2021 Family medical leave or disability forms [email or web address] 03/05/2021 Tobacco/smoking cess ation counseling (ask, advise, assess, assist, and arrange) [email or web address] 03/05/2021 Signs and symptoms of preeclampsia [email or web address] Delivery Information Delivery Date Delivery Type Labor Anesthesia Weeks Gestation Incision Type Labor Labor Length Hrs Delivered By Post Complications Tubal Sterilization Discharge Date Comments None Regional-Ep idural 37 Low Transvers e Conor Chamorro MD None false 04/29/2021 Discharge Information Feeding Method Contraceptive Method Maternal HG B and HCT Levels Breast
--- OUTSIDE RECORDS SUMMARY | 2025-08-27 20:03 | XMS_ITS | Clinical Summary ---
Author Organization [facility] Address [address] [place] [address] Care Team Providers Care Director Of Technology Name Role Phone Unavailable Primary Care Provider Unavailabl e Source Comments [facility],non-owned Affiliates and Associated Physician Practices is amultiple site organization consisting of ambulatory clinics and hospital sitesin [place] and [place]. This disclosure is being madepursuant to the Care Everywhere program and may not contain all information available regarding this patient. Last updated 18.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
--- OUTSIDE RECORDS SUMMARY | 2025-08-27 20:03 | XMS_ITS | Data Portability ---
Author Organization [facility] Address [address] [place] [address] Assessment Encounter Date Assessment Date Assessment LastModified by Organization Details LastModified Time 06/10/2025 06/10/2025 Patient is ___weeks . Discussed plan. [email or web address] Not available 06/10/2025 16:43:19 Plan of Treatment Reminders Order Date Submit Date Provider Last Modified By Organization Details Last Modified Time Details Appointments U/S OB BASELIN E 2024 11:00A M ULTRASOUND Not available Not available Not available OB ROUTINE 2024 01:15P M WILBUR HAM MD Not available Not available Not available Lab drug screen, urine [address] [facility], [address], [place], [address], 07/17/2025 18:38:02 culture , urine 2024 025 [facility] (Lab), [address] [facility], [place], [address], 07/18/2025 22:36:36 Referral None recorde d. Procedures None recorde d. Surgeries None recorde d. Imaging US, obstetr ic, nuchal translu cency 2024 025 [email or web address] [facility], [address], [place], [address], 07/17/2025 18:18:56 US, obstetr ic, 1st trimest er 2024 025 [facility], [address], [address], [place], [address], 07/17/2025 18:15:42 Medication Orders prometh azine 25 mg tablet 2024 025 [email or web address] [facility] [facility], [place], [address], 06/10/2025 17:16:40 Patient TargetsNo targets recorded. Patient InstructionsNo instructions recorded. Reason for Referral None Reported. Results Created Date Observation Date Name Description Value Unit Range Abnormal Flag Note LastModifiedBy Organization Detail LastModifiedTime 07/23/2007/23/2025 [UNIT Y] ANEUP LOIDY NIPT fraction 11.6% normal Not Available [facility] [address], [place], [address], 07/23/2025 21:10:37 07/23/20 25 07/23/2025 [UNIT Y] ANEUP LOIDY NIPT 22Q11.2 microdeletio n LOW RISK <1 in 10,000 normal Not Available [facility] [address], [place], [address], 07/23/2025 21:10:37 07/23/20 25 07/23/2025 [UNIT Y] ANEUP LOIDY NIPT sex chromosome aneuploidy NOT DETECT ED normal Not Available [facility] [address], [place], [address], 07/23/2025 21:10:37 07/23/20 25 07/23/2025 [UNIT Y] ANEUP LOIDY NIPT monosomy X LOW RISK <1 in 10,000 normal Not Available [facility] [address], [place], [address], 07/23/2025 21:10:37 07/23/20 25 07/23/2025 [UNIT Y] ANEUP LOIDY NIPT trisomy 13 LOW RISK <1 in 10,000 normal Not Available [facility] [address], [place], [address], 07/23/2025 21:10:37 07/23/20 25 07/23/2025 [UNIT Y] ANEUP LOIDY NIPT trisomy 18 LOW RISK <1 in 10,000 normal Not Available [facility] [address], [place], [address], 07/23/2025 21:10:37 07/23/20 25 07/23/2025 [UNIT Y] ANEUP LOIDY NIPT trisomy 21 LOW RISK <1 in 10,000 normal Not Available [facility] [address], [place], [address], 07/23/2025 21:10:37 07/23/20 25 07/23/2025 [UNIT Y] ANEUP LOIDY NIPT sex MALE normal Not Available [facility] [address], [place], [address], 07/23/2025 21:10:37 07/23/20 25 07/23/2025 [UNIT Y] ANEUP LOIDY NIPT gestation SINGLE TON normal Not Available [facility] [address], [place], [address], 07/23/2025 21:10:37 07/23/20 25 07/23/2025 [UNIT Y] ANEUP LOIDY NIPT for detailed report, see pdf See PDF normal Not Available [facility] [address], [place], [address], 07/23/2025 21:10:37 07/29/20 25 07/29/2025 [UNIT Y] MADHAV Morse sickle cell disease/beta -thalassemia /hemoglobino pathies carrier screen NEGATI VE normal Not Available [facility] [address], [place], [address], 07/29/2025 22:20:01 07/29/20 25 07/29/2025 [UNIT Y] MADHAV Morse alpha-thalas semia carrier screen NEGATI VE normal Not Available [facility] [address], [place], [address], 07/29/2025 22:20:01 07/29/20 25 07/29/2025 [UNIT Y] MADHAV Morse cystic fibrosis carrier screen NEGATI VE normal Not Available [facility] [address], [place], [address], 07/29/2025 22:20:01 07/29/20 25 07/29/2025 [UNIT Y] MADHAV Morse spinal muscular atrophy carrier screen NEGATI VE 2 SMN1 copies , SNP not presen t normal Not Available [facility] [address], [place], [address], 07/29/2025 22:20:01 07/29/20 25 07/29/2025 [UNIT Y] MADHAV Morse for detailed report, see pdf See PDF normal Not Available [facility] [address], [place], [address], 07/29/2025 22:20:01 05/20/20 25 05/20/2025 BHCG, QUANT ITATI VE B-HCG 938.0 mIU/m L 0.0-4. 9 high This assay was perfo rmed using [employer] ratio n reage nts and test kits. Value s obtai jose with other assay metho ds or kits canno t be used inter waterman eably . Refer ence Range s: Non-p regna nt, preme nopau otto women : 0.0-4 .9 mIU/m L Postm enopa usal women : 0.0-7 .0 mIU/m L Chelsi l Pregn blair: Gesta malena l Age bHCG Conc. - [...] Weeks 8,099 - 58,17 6 Not Available [facility] (Lab) [address], [place], [address], 05/21/2025 04:18:56 05/22/2005/22/2025 BHCG, QUANT ITATI VE B-HCG 2112.0 mIU/m L 0.0-4. 9 high This assay was perfo rmed using [employer] ratio n reage nts and test kits. Value s obtai jose with other assay metho ds or kits canno t be used inter waterman eably . Refer ence Range s: Non-p regna nt, preme nopau otto women : 0.0-4 .9 mIU/m L Postm enopa usal women : 0.0-7 .0 mIU/m L Chelsi l Pregn blair: Gesta malena l Age bHCG Conc. - [...] Weeks 8,099 - 58,17 6 Not Available [facility] (Lab) [address] , [place], [address], 05/23/2025 03:09:44 06/10/20 25 06/10/2025 CT/GC AND TRICH OMONA S VAGIN HEATHER (RRNA ), URINE chlamydia trachomatis, PCR Negati ve negati ve Not Available [facility] (Lab) [address] [facility], [place], [address], 06/11/2025 13:19:05 06/10/20 25 06/10/2025 CT/GC AND TRICH OMONA S VAGIN HEATHER (RRNA ), URINE neisseria gonorrhoeae, PCR Negati ve negati ve Not Available [facility] (Lab) [address] [facility], [place], [address], 06/11/2025 13:19:05 06/10/20 25 06/10/2025 CT/GC AND TRICH OMONA S VAGIN HEATHER (RRNA ), URINE trichomonas vaginalis ribosomal RNA (rrna) Negati ve negati ve Not Available [facility] (Lab) [address] [facility], [place], [address], 06/11/2025 13:19:05 07/17/20 25 07/17/2025 CBC W/DIF F WBC 8.8 10'3/ uL 3.5-10 .5 Not Available [facility] (Lab) [address] [facility], [place], [address], 07/18/2025 11:15:03 07/17/20 25 07/17/2025 CBC W/DIF F RBC 4.00 10'6/ uL (based on docume nted legal sex) 3.80-5 .20 Not Available [facility] (Lab) [address] [facility], [place], [address], 07/18/2025 11:15:03 07/17/20 25 07/17/2025 CBC W/DIF F HGB 10.6 g/dL (based on docume nted legal sex) 11.6-1 5.4 low Not Available [facility] (Lab) [address] [facility], [place], [address], 07/18/2025 11:15:03 07/17/2007/17/2025 CBC W/DIF F HCT 32.4 % (based on docume nted legal sex) 34.0-4 5.0 low Not Available [facility] (Lab) [address], [place], [address], 07/18/2025 11:15:03 07/17/20 25 07/17/2025 CBC W/DIF F MCV 81.0 fL 80.0-9 9.0 Not Available [facility] (Lab) [address], [place], [address], 07/18/2025 11:15:03 07/17/20 25 07/17/2025 CBC W/DIF F MCH 26.5 pg 27.0-3 4.0 low Not Available [facility] (Lab) [address], [place], [address], 07/18/2025 11:15:03 07/17/20 25 07/17/2025 CBC W/DIF F MCHC 32.7 g/dL 32.0-3 5.5 Not Available [facility] (Lab) [address], [place], [address], 07/18/2025 11:15:03 07/17/20 25 07/17/2025 CBC W/DIF F RDW 16.2 % 11.0-1 5.0 high Not Available [facility] (Lab) [address], [place], [address], 07/18/2025 11:15:03 07/17/2007/17/2025 CBC W/DIF F plt 361 10'3/ uL 150-40 0 Not Available [facility] (Lab) [address] [place], [address], 07/18/2025 11:15:03 07/17/20 25 07/17/2025 CBC W/DIF F MPV 10.5 fL 8.8-12 .1 Not Available [facility] (Lab) [address] [place], [address], 07/18/2025 11:15:03 07/17/20 25 07/17/2025 CBC W/DIF F NRBC's 0.0 % 0.0 Not Available [facility] (Lab) [address] [facility], [place], [address], 07/18/2025 11:15:03 07/17/20 25 07/17/2025 CBC W/DIF F absolute NRBCs 0.0 10'3/ uL no refere nce range establ ished Not Available [facility] (Lab) [address] [facility], [place], [address], 07/18/2025 11:15:03 07/17/20 25 07/17/2025 CBC W/DIF F neutrophils 60.8 % 34.0-7 3.0 Not Available [facility] (Lab) [address] [facility], [place], [address], 07/18/2025 11:15:03 07/17/20 25 07/17/2025 CBC W/DIF F lymphocytes 30.3 % 15.0-5 0.0 Not Available [facility] (Lab) [address] [facility], [place], [address], 07/18/2025 11:15:03 07/17/20 25 07/17/2025 CBC W/DIF F monocytes 7.3 % 1.0-15 .0 Not Available [facility] (Lab) [address] [facility], [place], [address], 07/18/2025 11:15:03 07/17/20 25 07/17/2025 CBC W/DIF F eosinophils 1.1 % 0.0-8. 0 Not Available [facility] (Lab) [address] [facility], [place], [address], 07/18/2025 11:15:03 07/17/20 25 07/17/2025 CBC W/DIF F basophils 0.3 % 0.0-2. 0 Not Available [facility] (Lab) [address] [facility], [place], [address], 07/18/2025 11:15:03 07/17/2007/17/2025 CBC W/DIF F immature granulocytes 0.2 % no define d refere nce range Immat ure Granu locyt es (IG) repre sents autom ated enume ratio n of Metam yeloc ytes, Myelo cytes and Promy elocy kb when IG is < 5%. Blast s are not inclu ded in IG and repor eliu separ ately if prese nt. Not Available [facility] (Lab) [address] [facility], [place], [address], 07/18/2025 11:15:03 07/17/2007/17/2025 CBC W/DIF F absolute neutrophils 5.4 10'3/ uL 1.5-8. 0 Not Available [facility] (Lab) [address] [facility], [place], [address], 07/18/2025 11:15:03 07/17/20 25 07/17/2025 CBC W/DIF F absolute lymphocytes 2.7 10'3/ uL 1.0-4. 0 Not Available [facility] (Lab) [address] [facility], [place], [address], 07/18/2025 11:15:03 07/17/20 25 07/17/2025 CBC W/DIF F absolute monocytes 0.6 10'3/ uL 0.2-1. 0 Not Available [facility] (Lab) [address] [facility], [place], [address], 07/18/2025 11:15:03 07/17/2007/17/2025 CBC W/DIF F absolute eosinophils 0.1 10'3/ uL 0.0-0. 6 Not Available [facility] (Lab) [address] [facility], [place], [address], 07/18/2025 11:15:03 07/17/20 25 07/17/2025 CBC W/DIF F absolute basophils 0.0 10'3/ uL 0.0-0. 3 Not Available [facility] (Lab) [address] [facility], [place], [address], 07/18/2025 11:15:03 07/17/2007/17/2025 CBC W/DIF F absolute immature granulocytes 0.0 [...] patie nt: https ://trell parker book. nm.or g/gen derx Not Available [facility] (Lab) [address], [place], [address], 07/18/2025 11:15:03 07/17/2007/17/2025 HIV 1/2 ANTIG EN/AN TIBOD Y, REFLE X CONFI RMATI ON HIV antigen/anti body Nonrea ctive nonrea ctive HIV-1 antig en and HIV-1 /HIV- 2 antib odies were not detec eliu. No labor atory evide nce of HIV infec tion. Not Available [facility] (Lab) [address] [facility], [place], [address], 07/18/2025 11:15:04 07/17/2007/17/2025 HEPAT ITIS B SURFA CE ANTIG EN hepatitis B surface antigen Non-re active non-re active This assay was perfo rmed using [employer] ratio n reage nts and test kits. Value s obtai jose with other assay metho ds or kits canno t be used inter waterman eably . Not Available [facility] (Lab) [address] [facility], [place], [address], 07/18/2025 11:15:05 07/17/2007/17/2025 HEPAT ITIS C ANTIB SILVESTRE SCREE N, REFLE X TO CONFI RMATI ON hepatitis C antibody Non-re active non-re active Antib odies to HCV Not Detec eliu, does not exclu de the possi bilit y of expos ure to HCV. Not Available [facility] (Lab) [address] [facility], [place], [address], 07/18/2025 11:15:06 07/17/2007/17/2025 RUBEL LA IGG ANTIB SILVESTRE, QUANT rubella antibodies, IgG Reacti ve reacti ve Not Available [facility] (Lab) [address] [facility], [place], [address], 07/18/2025 11:15:06 07/17/2007/17/2025 RUBEL LA IGG ANTIB SILVESTRE, QUANT rubella antibodies, IgG quant 158.4 IU/mL >=10 Non-r eacti ve (Non- Immun e) <10 IU/mL React ronan (Immu ne) > or = 10 IU/mL Not Available [facility] (Lab) [address] [facility], [place], [address], 07/18/2025 11:15:06 07/17/2007/17/2025 TYPE/ RH/SC REEN ABO/Rh type O POS Not Available [facility] (Lab) [address] [facility], [place], [address], 07/18/2025 11:15:07 07/17/2007/17/2025 TYPE/ RH/SC REEN antibody screen NEG Not Available [facility] (Lab) [address] [facility], [place], [address], 07/18/2025 11:15:07 07/17/2007/17/2025 TYPE/ RH/SC REEN exp date 2024 23:59 Not Available [facility] (Lab) [address] [facility], [place], [address], 07/18/2025 11:15:07 07/17/2007/17/2025 HEMOG LOBIN A1C hemoglobin A1C 5.2 % 4.0-5. 6 The Ameri can Diabe [...] >8.0% Actio n sugge sted Not Available [facility] (Lab) [address] [place], [address], 07/18/2025 11:15:07 07/17/20 25 07/17/2025 RPR SCREE N, REFLE X TITER /CONF IRMAT ION RPR qualitative Nonrea ctive nonrea ctive Not Available [facility] (Lab) [address] [place], [address], 07/18/2025 11:15:08 07/17/20 25 07/17/2025 LEAD, BLOOD (ADUL T/PED IATRI C) lead, whole blood <1.0 mcg/d L <3.5 See Note 1 Addie sis was perfo rmed by Prakash Mcfarland ed Plasm a Mass Spect romet ry (ICPM S) Note 1 This test was devel oped and its addie tical perfo rmanc e raymon cteri stics have been deter mined by [facility]. It has not been clear ed or appro usman by the FDA. This assay has been valid ated pursu ant to the CLIA regul ation s and is used for clini mario purpo ses. Perfo rming Organ izati on Infor matio n: Site ID: CB Name: [facility] claire Bella Addre ss: [address] [place] [address] Direc tor: Arian Groves s Not Available [facility] (Lab) [address] [facility], [place], [address], 07/18/2025 16:03:58 07/17/2007/17/2025 CULTU RE: URINE result report SEE RESULT S BELOW Test: Cultu re: Urine Speci men Sourc e: Urine - Clean Catch Speci men Type: Urine Speci men Date: 2024 1729 Resul t Date: 20242 Resul t Statu s: Final resul t Abnor mal: No Resul ting Lab: [facility] [address] [facility] [address] Tel: CULTU RE ----- ----- ----- --- No growt h in 1 day (dete ction level of 10,00 0 colon ies / ml.) Not Available [facility] (Lab) [address] [facility], [place], [address], 07/18/2025 22:36:36 06/10/20 25 06/10/2025 US, obste tric, 1st trime ster No observ ation record ed. [email or web address] [facility] [address], [place], [address], 06/11/2025 11:16:21 07/17/20 25 07/17/2025 US, obste tric, nucha l trans lucen cy No observ ation record ed. [email or web address] [facility] [address], [place], [address], 07/17/2025 18:15:33 07/17/20 25 07/17/2025 US, obste tric, 1st trime ster No observ ation record ed. [email or web address] [facility] [address], [place], [address], 07/17/2025 18:15:43 07/17/20 25 07/17/2025 US, obste tric, follo w-up No observ ation record ed. [email or web address] [facility] [address], [place], [address], 07/22/2025 12:26:24 Result Notes None recorded. Problems Name Problem SNOMED Code Status Onset Date Resolution Date Notes Provider Name and Address Organization Details Recorded Time Past pregnanc y history of prematur e delivery 803441222 Active 2024 --35wks Margo Yu [facility], [facility] 5 14:37:05 Pregnanc y 25474887 Active 2024 Jeri Jose Alfredo yancey, [facility] 16:57:32 Past pregnanc y history of pre-ecla mpsia 32102609575 9100 Active 2024 baby asa Siddharth Jarvis MD [address], [place], [address], [facility] 17:15:15 Deliveri es by 909515581 Active 2024 Consideri ng TOLAC Siddharth Jarvis MD [address], [place], [address], [facility] 17:25:18 Problem Notes None recorded. Procedures Surgical History Date Name Laterality Status Provider Name and Address Organization Details Recorded Time 5 Date of Last Pap Smear completed Margo Yu [facility] 02/05/2025 20:55:05 1 Caesarean Section completed Eunice Loya [facility] 11/26/2024 11:27:45 Imaging Results None recorded. Procedure Notes None recorded. Medical Equipment None Reported. Allergies Allergen ID Allergen Name Allergen Category Reaction Reaction Severity Criticality Documentation Date Start Date Code Code System Note Provider Name and Address Organization Details Recorded Time 35334 morphine medicatio n Not available Not available Not available 11/26/2024 7052 RxNorm Eunice Loya [facility], [facility] 11:23:32 Medications Name Sig Start Date Stop Date Status Note LastModified by Organization Details LastModified Time metformin 500 mg tablet TAKE 1 TABLET BY MOUTH TWICE DAILY 06/10 completed Not Available Not Available Not Available metronidazol e 500 mg tablet Take 1 tablet every 12 hours by oral route for 7 days. 02/05 completed Not Available Not Available Not Available Macrobid 100 mg capsule Take 1 capsule twice a day by oral route for 7 days. 08/16 completed Not Available Not Available Not Available promethazine 25 mg tablet TAKE 1 TABLET BY MOUTH EVERY 4 HOURS active Not Available Not Available No t Available active Not Available Not Avai lable Not Available Vitals Date Recorded Body height Body mass index (BMI) Body weight Systolic And Diastolic Provider Name and Address Organization Details Last Updated DateTime 06/10/2025 157.48 cm 25.2 kg/m2 48319.75 g 103/67 mm[Hg] Jeri Veliz [facility] 06/10/2025 16:44:59 Date Recorded Body height Body mass index (BMI) Body weight Systolic And Diastolic Provider Name and Address Organization Details Last Updated DateTime 07/17/2025 157.48 cm 25.1 kg/m2 22556.15 g 110/67 mm[Hg] Jeri [facility] 07/17/2025 16:57:12 Date Recorded Body height Body mass index (BMI) Body weight Systolic And Diastolic Provider Name and Address Organization Details Last Updated DateTime 08/14/2025 157.48 cm 25.2 kg/m2 67820.75 g 99/65 mm[Hg] Meseret Mares [facility] 08/14/2025 14:24:53 Social History Question Answer Notes LastModified by Organizat ion Details LastModified Time Tobacco Smoking Status Never Smoker [facility] 11/26/2024 11:26:40 Are You Blind Or Do You Have Difficulty Seeing? No [email or web address] Information n ot available 11/26/2024 In The 14 Days Before Symptom Onset, Have You Had Close Contact With A Laboratory-confirm ed COVID-19 While That Case Was Ill? No [email or web address] Information n ot available 11/26/2024 In The 14 Days Before Symptom Onset, Have You Had Close Contact With A Person Who Is Under Investigation For COVID-19 While That Person Was Ill? No Information not available 11/26/2024 Have You Been To An Area Known To Be High Risk For COVID-19? No [email or web address] Information not available 11/26/2024 Are You Deaf Or Do You Have Serious Difficulty Hearing? No [email or web address] Information not available 11/26/2024 What Is The Highest Grade Or Level Of School You Have Completed Or The Highest Degree You Have Received? [id number] [email or web address] Information not available 11/26/2024 Are There Any Guns Present In Your Home? No Information not available 11/26/2024 What Was The Date Of Your Most Recent Tobacco Screening? 10/08/2020 [email or web address] Information not available 10/08/2020 Are You Sexually Active? Yes Information not available 11/26/2024 Do You Have Smoke And Carbon Monoxide Detectors In Your Home? Yes [email or web address] Information not available 11/26/2024 Do You Use Sunscreen Routinely? No [email or web address] Information not available 11/26/2024 Do You Have Difficulty Walking Or Climbing Stairs? No [email or web address] Information not available 11/26/2024 Sex: Unknown Functional Status Question Answer Note LastModified by Organizat ion Details LastModified Time What is your level of alcohol consumption? Moderate Information not available 11/26/2024 Are you currently employed? Yes [email or web address] Information not available 11/26/2024 Are you able to care for yourself independently? 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 No [email or web address] Information not available 11/26/2024 What is your exercise level? None Information not available 10/08/2020 Mental Status None recorded. Family History Relationship Description Onset Age of this Age Resolved Age Notes LastModified by Organization Details LastModified Time Mother Anemia Not available 11/26/2024 11:25:57 Mother Malignant neoplasm of breast [email or web address] Not available 2024 11:26:10 Maternal Grandmother Diabetes mellitus [email or web address] Not available 2024 11:26:19 Maternal Grandmother Hypertensive disorder [email or web address] Not available 2024 11:26:28 Medical History Condition Response Allergies (Food, seasonal, environmental ) N Other Y Drug/Latex Allergies/Reactions N Breast Cancer N Blood Transfusion N Lung Disease N Dermatologic Disorders N Defects or Inherited Disease N Breast Problem N Gestational Diabetes N Hematologic disorders N Anesthesia Complications N History of STI N Deep Vein Thrombosis N Polycystic ovary syndrome N Anxiety Disorder N Autoimmune disease N Arthritis N Polyps N Infertility N History of abnormal pap N Acid Reflux (GERD) N Cancer N Varicosities N Stroke N Neurologic/Epilepsy N Endometriosis N High Cholesterol N Headaches N Fibromyalgia N Kidney Disease N Heart Problems N Thyroid Problems N Kidney or Bladder Problems N GI Problems N Eating Disorder [...] Last Mammogram Flow Moderate Date of LMP 04/20/2025 On BCP's at Conception? N Was last menstrual period normal Y STIs/STDs N HPV Vaccine N Duration of Flow (days) 6 Current Control Method Age at First Child 25 Are cycles usually normal Y Date of Last Colonoscopy Frequency of Cycle (Q days) 29 Sexually Active? Y Menses Monthly Y Date of DEXA bone scan Age of first menstrual cycle 12 Date of Last Pap Smear 11/26/2024 Sexual Problems? Y LMP Definite Obstetrics History GPAL:G 3 P 0 1 1 1 Type Value Spontaneous 1 Premature 1 Living 1 Total 3 Past Encounters Encounter ID Performer Location Encounter Start Date Encounter Closed Date Diagnosis/Indication Diagnosis SNOMED-CT Code Diagnosis ICD10 Code Diagnosis IMO Codes Diagnosis Note [id number] Siddharth Jarvis MD [facility] [address] [address] 11/26/2024 10:54:27 11/26/2024 12:07:53 Irregular periods 55898323 N92.6 Discussed possible causes of abnormal bleeding, [...] w/ dipstick - negative. Pain in pelvis 51343606 R10.2 Dyspareunia 24279402 N94 .10 Discussed common possible causes of dyspareuni a and post-coita l bleeding, such as infection, vaginal dryness, and positionin g during intercours e.Recommen ded comfortabl e positions during intercours e and using lubricatio n as needed.Ervin l r/o vaginal infection with pap/sti testing. Postcoital bleeding 4888 0000 N93.0 [id number] Siddharth Jarvis MD [facility] [address],[place], [place] [address] 11/28/2024 09:48:45 11/28/2024 10:37:36 Abnormal uterine bleeding [id number] 9100 N93.9 R10.2 [id number] Siddharth Jarvis MD [facility] [address],[place] [address] 06/10/2025 15:32:55 06/10/2025 16:37:24 [id number] Siddharth Jarvis MD [facility] [address],[place] [address] 06/10/2025 15:33:30 06/10/2025 17:44:22 Nausea [id number] R11.0 16478 Amenorrhea [id number] N91. 2 [id number] this patient is a 29-year-ol d female who presents for amenorrhea . She is a positive test. Ultrasound revealed a 1st trimester gestation. Patient has no complaints . We talked about early care. Talked about genetic screening. We talked about her ultrasound results. We talked about the 12 week ultrasound that has genetic screening components . She was given recommenda tions on exercise, diet, over-the-c ounter medication s. We reviewed her obstetric history. We reviewed her medical history. We reviewed her social history. She will begin routine care at her next visit. H[place]ORY [place] [id number] Siddharth Jarvis MD [facility] [address],[place] [address] 07/17/2025 15:51:59 07/17/2025 16:42:08 screening [id number] Z36.82 Z3A.12 [id number] Siddharth Jarvis MD [facility] [address],[place] [address] 07/17/2025 15:52:14 07/18/2025 08:59:31 care status [id number] Z34.82 [id number] WILBUR HAM MD [facility] [address],[place] [address] 08/14/2025 14:21:00 08/14/2025 15:11:12 Past history of pre-eclampsia [id number] Z87.59 [id number] - severe by LFTs and BPs- bASA ppx Past pregn blair history of section 197629086 Z98.464 [id number] - considerin g TOLAC Gestation period, 16 weeks [id number] Z3A.16 [id number] - continue [facility] Concerns Section Related Observation LastModified by Organization Detai ls LastModified Time None Recorded Concern Status LastModified by Organization Details LastModified Time None Recorded Advance Directives Directive None Recorded Payers Insurance Date Sequence Insurance Name Policy Number Policy Bucio Covered Member ID Bucio Member ID Guarantor Name 05/06/2025 1 *SELF PAY* Willem Cifuentes 08/11/2025 1 [facility] (MEDICAID REPLACEMENT - HMO) Tracey Cifuentes [id number] Tracey Cifuentes 06/10/2025 1 MEDICAID-[place]: [place] [employer] Tracey Cifuentes [id number] Tracey Cifuentes Notes Date Note Type Note Provider Name and Address Organization Details Recorded Time 06/10/2025 text/html Generic HPI

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
--- NOTE | 2025-08-27 20:11 | ED.PREGNANCY ---
HPI - General Chief complaint: OB/Uterine Contractions Stated complaint: 18 weeks preg., low back pain Time Seen by Provider: 08/27/25 19:09 History of Present Illness HPI Narrative: Patient is a 30-year-old female who presents to the ER with bilateral lower back pain that started approximately 2 p.m. this afternoon. She reports she is 18 weeks . Patient denies any urinary symptoms, recent fevers, or abnormal vaginal discharge. She reports the pain radiates from her flanks down both upper legs. Patient reports this is her 2nd . She denies any other medical history relevant to this ER visit. Related Data Allergies Allergy/AdvReac Type Severity Reaction Status Date / Time codeine Allergy Severe Difficulty Verified 08/27/25 18:41 Breathing morphine Allergy Severe Difficulty Verified 08/27/25 18:41 Breathing Review of Systems Review of Systems: All systems reviewed & are unremarkable except as noted in HPI and below PMFSH Past Medical History Medical History Left knee pain delivery due to maternal disorder Term delivered HELLP syndrome induced hypertension Patellar tendonitis Surgical History Surgical History No significant past surgical history Social History Social History Smoking status: Never smoker Substance use: never Gender identity (if verbalized by the patient): Female Spiritual care concerns: No Exam Narrative: GENERAL: Well appearing, well-nourished, non-toxic, in no acute distress. HEAD: Normocephalic, atraumatic. NECK: Supple. No adenopathy, no masses. RESPIRATORY: Airway patent, respirations nonlabored. Clear to auscultation bilaterally, no rales, rhonchi, wheezing. CARDIOVASCULAR: Regular rate and rhythm without murmurs, rubs, or gallops. Peripheral pulses 2+ and equal bilaterally. Negative CVA tenderness. ABDOMINAL: Soft, nontender, nondistended, no hepatosplenomegaly. Normoactive BS. MUSCULOSKELETAL: Moves all extremities. Strength/ROM intact without gross deformities. SKIN: Warm, dry, normal color. No rashes. NEURO: A&O X3. Speech clear. Cranial nerves II-XII intact. No ataxic movements. PSYCHIATRIC: Appropriate mood and affect. Normal interaction. Course Vital Signs Vital signs: Vital Signs Temperature 36.4 C L 08/27/25 18:52 Pulse Rate 74 08/27/25 18:52 Respiratory Rate 16 08/27/25 18:52 Blood Pressure 109/56 L 08/27/25 18:52 Pulse Oximetry 100 08/27/25 18:52 Oxygen Delivery Room Air 08/27/25 18:52 Temperature 36.4 C L 08/27/25 18:52 Pulse Rate 74 08/27/25 18:52 Respiratory Rate 16 08/27/25 18:52 Blood Pressure 109/56 L 08/27/25 18:52 Pulse Oximetry 100 08/27/25 18:52 Oxygen Delivery Room Air 08/27/25 18:52 MDM - OB/Uterine Contractions MDM Narrative Medical decision making narrative: Patient is a 30-year-old female who presents to the ER with bilateral lower back pain that started approximately 2 p.m. this afternoon. She reports she is 18 weeks . Patient denies any urinary symptoms, recent fevers, or abnormal vaginal discharge. She reports the pain radiates from her flanks down both upper legs. Patient reports this is her 2nd . She denies any other medical history relevant to this ER visit. Labs Ordered: UA Imaging Ordered: Horine continuous, monitor Medications Ordered: Patient declined pain medication Results: Patient's urinalysis did not indicate a urinary tract infection. Her TOCO monitor did not indicate any concerning findings. Diagnosis: Lumbar back strain, musculoskeletal pain Patient Education/Shared MDM: Results of lab work and imaging shared with patient. Patient's heart tones were in the 160s during monitoring. The monitor indicates no contractions and patient denies feeling contractions during the monitoring. She continues to decline pain medication. Patient strongly advised to maintain hydration status upon discharge and follow-up with her OBGYN as soon as possible. She will not be discharged home with any new prescriptions. Strict return precautions provided. Patient verbalized understanding and is in agreement with plan. Vital signs stable at time of discharge. All questions answered. Differential Diagnosis Differential diagnosis: Likely other (Lumbar strain, musculoskeletal pain, round ligament pain, labor) Lab Data Attestation: I reviewed the patient's lab results. Labs: Lab Results 08/27/25 Range/Units 19:17 Urine Color Yellow (Yellow) Urine Appearance Clear (Clear) Urine pH 7.5 (5.0-9.0) Ur Specific [place] 1.009 (1.001-1.035) Urine Protein Negative (Negative) mg/dL Urine Glucose (UA) Negative (Negative) mg/dL Urine Ketones Negative (Negative) mg/dL Ur Blood (Man) Negative (Negative) Urine Nitrate Negative (Negative) Urine Bilirubin Negative (Negative) Urine Urobilinogen 1.0 (<2.0) mg/dL Leukocyte Esterase Rfl Trace H (Negative) PALLAVI/UL Urine RBC 0-2 (0-2) /hpf Urine WBC 0-5 (0-3) /hpf Ur Squamous Epith Cells None seen (Few) /hpf Urine Bacteria None seen /hpf Urine Casts 0-2 Discharge Plan Discharge Clinical Impression: Musculoskeletal back pain, Flank pain, bilateral Patient Disposition: Home Condition: Stable Instructions: Antibiotic Form, at 15 to 18 Weeks (ED) Additional Instructions: Please return to the ER with any worsening symptoms. Follow-up with your OBGYN as soon as possible for further treatment. You may take Tylenol as needed for pain control. Please place lidocaine patches on the area of discomfort. Patient Language: Irish Prescriptions: New lidocaine 5 % adhesive patch,medicated 2 patch topical DAILY Qty: 30 0RF Rx Instructions: leave on most painful area for up to 12 hrs Follow-up/Referrals: Red Tijerina MD [Physician, TOP DYEING MACHINE LOADER] PHYSICIAN,FINANCIAL ANALYSIS CONSULTANT [Primary Care Provider, Internal Medicine] Time of Disposition: 20:24
[2025-08-27] MEDS: LIDOCAINE 5% PATCH 1 PATCH TRANSDERM (20:43)
[2025-08-27 20:45] VITALS: BP 110/64; PULSE 70; RESP 16; O2SAT 100
== END 2025-08-27 20:46 | disposition home or self-care (01) ==
PROVIDERS: Emergency Provider Registered Nurse
DX: O99.891 Other specified diseases and conditions complicating pregnancy (principal); M54.50 Low back pain, unspecified; O26.892 Other specified pregnancy related conditions, second trimester; R10.A3 Flank pain, bilateral; Z3A.18 18 weeks gestation of pregnancy
CPT/HCPCS: 81001; 99283; A9270

== ENCOUNTER 2025-10-24 11:27 | Observation (INO) | payer OTHER, SELFPAY ==
[2025-10-24 11:56] VITALS: BP 93/46; PULSE 81
[2025-10-24 12:00] VITALS: BP 99/54; PULSE 81
--- NOTE | 2025-10-24 12:22 | OBADM ---
This patient, Tracey Cifuentes, admitted to the OB room OB Post 116 for observation. Patient/family oriented to hospital policies and general routines including ID bracelet, bed and alarms, visiting hours, pain management, procedures, bathroom and other care routines, personal items, smoking policy, room service/diet, and visiting hours. Patient/Family are encouraged to report perceived risks to care and to ask questions if they do not understand what they are told or what they should do.
[2025-10-24 12:30] VITALS: BP 100/57; PULSE 80
[2025-10-24 12:33] VITALS: TEMP 36.7
[2025-10-24 12:42] LABS: Add Urine Microscopic? YES; Appearance Urine Turbid (Clear); Glucose Urine UA Negative (Negative); Leukocyte Esterase Ur 2+ LEU/UL (Negative); Need Manual Microscopic Reviewed; Nitrate Urine Negative (Negative); Non Pathogenic Casts 0-2; Specific Grav Ur 1.018 (1.001-1.035)
--- OUTSIDE RECORDS SUMMARY | 2025-10-24 12:45 | XMS_ITS | Clinical Summary ---
Author Organization [facility] Address [address] [place] [address] Care Team Providers Care Track Layer Head Name Role Phone Unavailable Primary Care Provider Unavailabl e Source Comments [facility],non-owned Affiliates and Associated Physician Practices is amultiple site organization consisting of ambulatory clinics and hospital sitesin [place], [place], [place] and [place]. This disclosure is being madepursuant to the Care Everywhere program and may not contain all information available regarding this patient. 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
--- NOTE | 2025-10-24 13:29 | PC.NURSE ---
Discussed macrobid prescription with patient and Dr. Jarvis's order to perform SVE. Patient refused SVE at this time. States cramping is not bad and would prefer not to have exam. Discussed possibility of dilating. Pt will return if cramps worsen.
--- NOTE | 2025-11-17 22:01 | PM.OBTRLD ---
OB - Triage/Final Diagnosis Visit Information Comments/Additional reasons for admission: I have assessed the risk for this patient, Tracey Cifuentes, and determined that she would benefit from observation care. Evaluation Laboratory results: Laboratory Tests 10/24/25 11:56 Urine Color Yellow Urine Appearance Turbid H Urine pH 7.5 Ur Specific [place] 1.018 Urine Protein Negative Urine Glucose (UA) Negative Urine Ketones Negative Ur Blood (Man) Negative Urine Nitrate Negative Urine Bilirubin Negative Urine Urobilinogen 1.0 Add Ur Microanalysis Reviewed Leukocyte Esterase Rfl 2+ H Urine RBC 0-2 Urine WBC 0-5 Ur Squamous Epith Cells Occasional Amorphous Sediment Moderate H Urine Bacteria Rare Urine Casts 0-2 Final Diagnosis (1) Pelvic pressure in : Code(s): O26.899 - Other specified related conditions, unspecified trimester; R10.20 - Pelvic and perineal pain unspecified side Status: Acute
== END 2025-10-24 13:10 | disposition home or self-care (01) ==
PROVIDERS: Admitting Provider Obstetrics & Gynecology; Visit Provider Obstetrics & Gynecology
DX: O26.892 Other specified pregnancy related conditions, second trimester (principal); Z3A.26 26 weeks gestation of pregnancy; R10.20 Pelvic and perineal pain unspecified side
CPT/HCPCS: 81001; 87086; G0378; G0379